=== PATIENT | male | born 1965 | race Two or more races ===

== ENCOUNTER 2016-07-18 13:17 | Inpatient (IN) | payer MEDICAID ==
[~2016-07-18] VITALS: Ht 170.2 cm; Wt 72.1 kg
[2016-07-18 13:31] VITALS: BP 120/83
--- NOTE | 2016-07-18 13:46 | Emergency Room Report ---
History of Present Illness General Chief Complaint: Chest Pain Source: Patient Present Illness HPI Patient has a history of anxiety and HIV. Patient presents emergency department today complaining of four-day intermittent chest pain intermittent nonexertional dull and achy midsternal. Patient denies any fever cough runny nose sore throat. She had outpatient laboratory workup to show that he had elevated CKs was concerned about heart. Symptoms noted to be moderate.No other modifying factors. No other associated signs and symptoms. No other complaints were noted. Allergies: Coded Allergies: NSAIDS (NON-STEROIDAL ANTI-INFLAMMA (Verified Allergy, Unknown, 07/18/16) COPIED FROM UNCODED SECTION Patient History Past Medical History: HIV, other - Anxiety Past Surgical History: none Pertinent Family History: none Social History: Denies: alcohol use, drug use, smoking Nursing Documentation-[facility] Past Medical History: No History, Except For Review of Systems All Other Systems: negative except mentioned in HPI Physical Exam Vital Signs Date Time Temp Pulse Resp B/P Pulse Ox O2 Delivery O2 Flow Rate FiO2 07/18/16 13:28 98.4 80 16 120/83 95 Room Air Sp02 EP Interpretation: reviewed, normal General Appearance: normal inspection, well appearing, no apparent distress, alert Head: atraumatic Eyes: bilateral eye normal inspection ENT: normal ENT inspection, hearing grossly normal, normal voice Neck: normal inspection, full range of motion, supple, no bony tend Respiratory: normal inspection, lungs clear, normal breath sounds, no respiratory distress, no retraction, no wheezing Cardiovascular #1: regular rate, rhythm, no edema Gastrointestinal: normal inspection, normal bowel sounds, non tender, soft, no guarding, no hernia Genitourinary: no CVA tenderness Musculoskeletal: normal inspection, back normal, normal range of motion Neurologic: normal inspection, alert, responsive, speech normal Psychiatric: normal inspection, judgement/insight normal, mood/affect normal Skin: normal inspection, normal color, no rash Medical Decision Making Diagnostic Impression: Primary Impression: Chest pain ER Course Patient presented to the emergency department today complaining of chest pain. Differential diagnoses include acute coronary syndrome, pulmonary embolism, pneumothorax, chest wall pain, pleurisy, pericarditis, acute anxiety reaction just to name a few. Given the severity of the patient's presentation I felt this is a highly complex patient. This patient required extensive workup. CBC , chemistry, EKG, chest x-ray, cardiac enzymes, liver profile were all obtained. 12-lead EKG performed for nontraumatic chest pain. PQRS documentation: EKG was performed. Please refer to below for interpretation. He I will sign this case out to Dr. Griffiths for final disposition. EKG Diagnostic Results Rate: normal Rhythm: NSR ST Segments: no acute changes Rhythm Strip Diag. Results EP Interpretation: yes Rate: 72 Rhythm: NSR, no PVC's, no ectopy Last Vital Signs Date Time Temp Pulse Resp B/P Pulse Ox O2 Delivery O2 Flow Rate FiO2 07/18/16 13:32 80 16 Room Air 07/18/16 13:31 98.4 120/83 95 GABE SALCEDO M.D. Jul 18, 2016 13:46
--- NOTE | 2016-07-18 14:30 | Diagnostic Imaging Report ---
Indication: Chest pain Technique: One view of the chest Comparison: none Findings: Lungs and pleural spaces are clear. Heart size is normal. Impression: No acute process
[2016-07-18 14:37] LABS: BASOPHILS % (AUTO) 1.5 % (0.0-2.0); EOSINOPHILS % (AUTO) 1.4 % (0.0-3.0); LYMPHOCYTES % (AUTO) 45.1 % (20.0-45.0); MEAN CORPUSCULAR HEMOGLOBIN 31.9 PG (27.0-31.0); MEAN CORPUSCULAR HGB CONC 33.9 G/DL (32.0-36.0); MEAN CORPUSCULAR VOLUME 94 FL (80-99); MEAN PLATELET VOLUME 9.3 FL (6.5-10.1); NEUTROPHILS % (AUTO) 41.9 % (45.0-75.0); PLATELET COUNT 222 K/UL (150-450); RED BLOOD COUNT 5.56 M/UL (4.70-6.10); WHITE BLOOD COUNT 4.5 K/UL (4.8-10.8)
[2016-07-18 14:56] LABS: ALANINE AMINOTRANSFERASE 26 U/L (3-41); ALBUMIN/GLOBULIN RATIO 1.7 (1.0-2.7); ANION GAP 15 (5-15); ASPARTATE AMINO TRANSFERASE 37 U/L (5-40); CALCIUM 9.7 mg/dL (8.6-10.2); CARBON DIOXIDE 26 mEQ/L (20-30); CHLORIDE 100 mEQ/L (98-107); CREATININE 1.2 mg/dL (0.7-1.2); GLOMERULAR FILTRATION RATE > 60 mL/min (>60); HEMOLYSIS 7; LIPASE 74 U/L (< 60); POTASSIUM 4.2 mEQ/L (3.4-4.9); SODIUM 141 mEQ/L (135-145); TOTAL PROTEIN 7.7 g/dL (6.6-8.7)
[2016-07-18 15:06] LABS: TROPONIN I < 0.30 ng/mL (<=0.30)
[2016-07-18 15:37] LABS: CKMB 4.4 ng/mL (< 6.7)
[2016-07-18] MEDS ORDERED: VEMLIDY25 MG PO (15:51)
[2016-07-18] MEDS ORDERED: DESCOVY 200-251 EACH PO (15:51)
[2016-07-18] MEDS ORDERED: CLONAZEPAM0.25 MG PO (15:51)
[2016-07-18] MEDS ORDERED: TIVICAY50 MG ORAL (15:51)
[2016-07-18 16:00] VITALS: BP 115/70
--- NOTE | 2016-07-18 16:00 | Emergency Room Report ---
History of Present Illness General Chief Complaint: Chest Pain Source: Patient Present Illness Allergies: Coded Allergies: NSAIDS (NON-STEROIDAL ANTI-INFLAMMA (Verified Allergy, Unknown, 07/18/16) COPIED FROM UNCODED SECTION Nursing Documentation-[facility] Past Medical History: No History, Except For Physical Exam Vital Signs Date Time Temp Pulse Resp B/P Pulse Ox O2 Delivery O2 Flow Rate FiO2 07/18/16 13:28 98.4 80 16 120/83 95 Room Air Medical Decision Making Diagnostic Impression: Primary Impression: ACS (acute coronary syndrome) ER Course Patient is a fairly complex patient with multiple differential to consideration including but not limited to cardiac cardiopulmonary and vascular emergencies Please refer to the initial note, for the full history, exam and initial workup At this time the patient's baseline blood work were appropriate Total CK was mildly elevated Otherwise EKG and chest x-ray appropriate Given the patient's history and he clinical evaluation patient is appropriate for further inpatient evaluation Labs Test 07/18/16 14:15 White Blood Count 4.5 K/UL (4.8-10.8) Red Blood Count 5.56 M/UL (4.70-6.10) Hemoglobin 17.7 G/DL (14.2-18.0) Hematocrit 52.3 % (42.0-52.0) Mean Corpuscular Volume 94 FL (80-99) Mean Corpuscular Hemoglobin 31.9 PG (27.0-31.0) Mean Corpuscular Hemoglobin Concent 33.9 G/DL (32.0-36.0) Red Cell Distribution Width 12.0 % (11.6-14.8) Platelet Count 222 K/UL (150-450) Mean Platelet Volume 9.3 FL (6.5-10.1) Neutrophils (%) (Auto) 41.9 % (45.0-75.0) Lymphocytes (%) (Auto) 45.1 % (20.0-45.0) Monocytes (%) (Auto) 10.0 % (1.0-10.0) Eosinophils (%) (Auto) 1.4 % (0.0-3.0) Basophils (%) (Auto) 1.5 % (0.0-2.0) Sodium Level 141 mEQ/L (135-145) Potassium Level 4.2 mEQ/L (3.4-4.9) Chloride Level 100 mEQ/L (98-107) Carbon Dioxide Level 26 mEQ/L (20-30) Anion Gap 15 (5-15) Blood Urea Nitrogen 12 mg/dL (7-23) Creatinine 1.2 mg/dL (0.7-1.2) Estimat Glomerular Filtration Rate > 60 mL/min (>60) Glucose Level 85 mg/dL (74-106) Calcium Level 9.7 mg/dL (8.6-10.2) Total Bilirubin 0.5 mg/dL (0.0-1.2) Aspartate Amino Transf (AST/SGOT) 37 U/L (5-40) Alanine Aminotransferase (ALT/SGPT) 26 U/L (3-41) Alkaline Phosphatase 115 U/L (40-129) Total Creatine Kinase 538 U/L (38-174) Creatine Kinase MB 4.4 ng/mL (< 6.7) Creatine Kinase MB Relative Index 0.8 Troponin I < 0.30 ng/mL (<=0.30) Pro-B-Type Natriuretic Peptide 12 pg/mL (0-125) Total Protein 7.7 g/dL (6.6-8.7) Albumin 4.9 g/dL (3.5-5.2) Globulin 2.8 g/dL Albumin/Globulin Ratio 1.7 (1.0-2.7) Lipase 74 U/L (< 60) EKG Diagnostic Results Rate: normal Rhythm: NSR ST Segments: no acute changes Rhythm Strip Diag. Results EP Interpretation: yes Rate: 66 Rhythm: NSR, no PVC's, no ectopy Chest X-Ray Diagnostic Results EP Interpretation: Yes Findings: no consolidation, no effusion, no pneumothorax Number of Views: 1 Last Vital Signs Date Time Temp Pulse Resp B/P Pulse Ox O2 Delivery O2 Flow Rate FiO2 07/18/16 13:32 80 16 Room Air 07/18/16 13:31 98.4 120/83 95 Status: improved Disposition: ADMITTED INPATIENT Condition: Serious Referrals: [facility],REFERRING (PCP) XU KIRKPATRICK D.O. Jul 18, 2016 16:00
[2016-07-18 17:29] VITALS: BP 121/71
[2016-07-18] MEDS ORDERED: Miralax 17gm pkt ORAL PRN (18:00)
[2016-07-18] MEDS ORDERED: Diltiazem 25mg/5ml IV PRN (18:00)
[2016-07-18] MEDS ORDERED: Morphine Sulfate 2mg/ml Inj IVP PRN (18:00)
[2016-07-18] MEDS ORDERED: DuoNeb 0.5-3(2.5)mg/3ml neb HHN PRN (18:00)
[2016-07-18] MEDS ORDERED: Nitroglycerin Subl 0.4mg tab (Bottle Of 25) SL PRN (18:00)
[2016-07-18] MEDS ORDERED: Ketorolac 30mg Inj IV PRN (18:00)
[2016-07-18] MEDS ORDERED: Enalaprilat 2.5mg/2ml Inj IV PRN (18:00)
[2016-07-18 18:58] LABS: TROPONIN I < 0.30 ng/mL (<=0.30)
--- NOTE | 2016-07-18 19:36 | Cardiology Progress Note ---
Assessment/Plan Assessment/Plan chest pain hs of same at [facility] neg stress echo 10/2015 hiv hx elevated cpk norml trop suggestive onf non cardiac sourse echo trop ekg posisble home tomorrow [id number] Objective Last 24 Hour Vital Signs Date Time Temp Pulse Resp B/P Pulse Ox O2 Delivery O2 Flow Rate FiO2 07/18/16 17:30 98.4 72 12 115/70 100 Room Air 07/18/16 17:29 98.4 72 14 121/71 98 Room Air 07/18/16 16:00 98.4 60 12 115/70 100 Room Air 07/18/16 13:32 80 16 Room Air 07/18/16 13:31 98.4 16 120/83 95 Room Air 07/18/16 13:28 98.4 80 16 120/83 95 Room Air Laboratory Tests Test 07/18/16 14:15 07/18/16 18:10 White Blood Count 4.5 K/UL (4.8-10.8) L Red Blood Count 5.56 M/UL (4.70-6.10) Hemoglobin 17.7 G/DL (14.2-18.0) Hematocrit 52.3 % (42.0-52.0) H Mean Corpuscular Volume 94 FL (80-99) Mean Corpuscular Hemoglobin 31.9 PG (27.0-31.0) H Mean Corpuscular Hemoglobin Concent 33.9 G/DL (32.0-36.0) Red Cell Distribution Width 12.0 % (11.6-14.8) Platelet Count 222 K/UL (150-450) Mean Platelet Volume 9.3 FL (6.5-10.1) Neutrophils (%) (Auto) 41.9 % (45.0-75.0) L Lymphocytes (%) (Auto) 45.1 % (20.0-45.0) H Monocytes (%) (Auto) 10.0 % (1.0-10.0) Eosinophils (%) (Auto) 1.4 % (0.0-3.0) Basophils (%) (Auto) 1.5 % (0.0-2.0) Sodium Level 141 mEQ/L (135-145) Potassium Level 4.2 mEQ/L (3.4-4.9) Chloride Level 100 mEQ/L (98-107) Carbon Dioxide Level 26 mEQ/L (20-30) Anion Gap 15 (5-15) Blood Urea Nitrogen 12 mg/dL (7-23) Creatinine 1.2 mg/dL (0.7-1.2) Estimat Glomerular Filtration Rate > 60 mL/min (>60) Glucose Level 85 mg/dL (74-106) Calcium Level 9.7 mg/dL (8.6-10.2) Total Bilirubin 0.5 mg/dL (0.0-1.2) Aspartate Amino Transf (AST/SGOT) 37 U/L (5-40) Alanine Aminotransferase (ALT/SGPT) 26 U/L (3-41) Alkaline Phosphatase 115 U/L (40-129) Total Creatine Kinase 538 U/L (38-174) H Creatine Kinase MB 4.4 ng/mL (< 6.7) Creatine Kinase MB Relative Index 0.8 Troponin I < 0.30 ng/mL (<=0.30) < 0.30 ng/mL (<=0.30) Pro-B-Type Natriuretic Peptide 12 pg/mL (0-125) Total Protein 7.7 g/dL (6.6-8.7) Albumin 4.9 g/dL (3.5-5.2) Globulin 2.8 g/dL Albumin/Globulin Ratio 1.7 (1.0-2.7) Lipase 74 U/L (< 60) H LILIBETH MAY Jul 18, 2016 19:36
[2016-07-18 20:20] VITALS: BP 130/78
[2016-07-18] MEDS ORDERED: clonazePAM 0.5mg tab ORAL PRN (20:30)
[2016-07-18] MEDS: Heparin 5000 units/ml inj SUBQ SCH (21:00)
--- NOTE | 2016-07-18 23:58 | Consultation ---
DATE OF CONSULTATION: 07/18/2016 CARDIOLOGY CONSULTATION CONSULTING PHYSICIAN: Dharmesh Figueroa M.D. REFERRING PHYSICIAN: Donavan Perez M.D. REASON FOR REFERRAL: Chest pain. HISTORY OF PRESENT ILLNESS: This is a 51-year-old gentleman with a history of HIV, who presented to the hospital because of three to four days of pain in the chest, sometimes sternal, sometimes left sided, sometimes bilateral shoulder area, sometimes across the chest, has been constantly present for the past four days. No relieving or exacerbating factors are noted, however, the patient does note that at times has worsening of his symptoms in certain positions. There is no PND. There is no orthopnea. He has occasional shortness of breath, occasional dizziness on standing position with palpitations. He has different types of chest pains, some of which he describes as a shocking sensation across both sides of the chest that is intense. PAST MEDICAL HISTORY: Positive for history of chest pain previously, for which he received evaluation at [facility]. He has a history of human immunodeficiency virus. No history of tuberculosis, asthma, or emphysema. No high blood pressure. No diabetes. He does have a history of renal insufficiency. He does have a history of palpitations, anxiety, and atypical chest pain, with chest pains as mentioned with previous hospitalizations at [facility]. In October 2015, he underwent a stress echocardiogram at [facility], which was negative. He endorses allergies to non-steroidals because of kidney problems. SOCIAL HISTORY: He used to smoke, but does not anymore. No alcohol. No drugs. REVIEW OF SYSTEMS: Gastrointestinal: Some nausea. Genitourinary: Negative. Pulmonary: Coughing and wheezing. Constitutional: Negative. PHYSICAL EXAMINATION: GENERAL: Shows a young gentleman, in no apparent respiratory distress. NECK: Supple. No jugular venous distention. No abdominojugular reflux noted. CHEST WALL: Nontender to palpation. LUNGS: Clear to auscultation and percussion. CARDIAC: S1 is normal. S2 is normal. Regular rate and rhythm. No heaves, thrills, gallops, or rubs noted. ABDOMEN: Soft and nontender. Positive bowel sounds. EXTREMITIES: There is no clubbing, cyanosis, nor is there any edema. LABORATORY AND DIAGNOSTIC DATA: Laboratory Values: Two sets of cardiac enzymes are negative from last night, one pending for today. The total CK was elevated at 538, as it has apparently been previously as well but no abnormality of troponin. Sodium is 141, potassium 4.2, chloride 100, bicarbonate 26, BUN 12, creatinine 1.2, and glucose of 85. His white count of 4.5, hemoglobin 17.7, and platelet count of 222,000. He did have a x-ray of the chest that was performed and showed no acute disease processes. ASSESSMENT: 1. Atypical chest pain with history of the same. 2. Human immunodeficiency virus. 3. History of renal insufficiency, resolved, secondary to nonsteroidals. 4. History of rhabdomyolysis. 5. Elevated CPK. Dr. Perez, this patient was seen in cardiac consultation. The patient's cardiac enzymes are all negative at least on two separate occasions and the third will be checked in the morning. His electrocardiogram performed is fairly unremarkable. I will recommend that he undergo an echocardiogram for evaluation of the segmental wall motion abnormalities. His CK is elevated, but is probably noncardiac source, possibly even related to his HIV or medications otherwise. No relieving or exacerbating factors are noted by the patient except for positional changes that may make the pain musculoskeletal as a possible likely etiology. He has had several tests at [facility] last year and review of the [facility] records indicate in October he had a negative stress echo at that time. His electrocardiogram is unchanged. Unless his EKG changes by tomorrow morning and cardiac enzymes change, may not perform any further testing. Dharmesh Figueroa M.D. DR: HUGO JOB#: [id number] CC:
[2016-07-19 00:13] VITALS: BP 117/76
[2016-07-19 03:48] VITALS: BP 127/88
[2016-07-19 03:48] LABS: BASOPHILS % (AUTO) 0.8 % (0.0-2.0); EOSINOPHILS % (AUTO) 1.9 % (0.0-3.0); LYMPHOCYTES % (AUTO) 51.3 % (20.0-45.0); MEAN CORPUSCULAR HEMOGLOBIN 32.4 PG (27.0-31.0); MEAN CORPUSCULAR VOLUME 95 FL (80-99); MONOCYTES % (AUTO) 9.5 % (1.0-10.0); NEUTROPHILS % (AUTO) 36.4 % (45.0-75.0); PLATELET COUNT 219 K/UL (150-450); RED BLOOD COUNT 5.56 M/UL (4.70-6.10); RED CELL DISTRIBUTION WIDTH 11.8 % (11.6-14.8); WHITE BLOOD COUNT 7.2 K/UL (4.8-10.8)
[2016-07-19 03:59] LABS: PROTHROMBIN TIME 10.6 SEC (9.30-11.50)
[2016-07-19 05:02] LABS: TROPONIN I < 0.30 ng/mL (<=0.30)
[2016-07-19 05:37] LABS: CHOLESTEROL 212 mg/dL (< 200); CHOLESTEROL/HDL RATIO 5.9 (3.3-4.4); CRP QUANT < 0.3 mg/dL (< 0.5); HEMOLYSIS 27; LDL CHOLESTEROL (CALC.) 127 mg/dL (60-99)
[2016-07-19 08:36] VITALS: BP 114/68
[2016-07-19] MEDS ORDERED: Aspirin Baby 81mg ORAL SCH (09:00)
[2016-07-19] MEDS ORDERED: DESCOVY ORAL SCH ×3 (09:00→12:00)
[2016-07-19] MEDS ORDERED: Dolutegravir Sodium 50mg tab ORAL SCH (09:00)
[2016-07-19] MEDS: Heparin 5000 units/ml inj SUBQ SCH (09:00)
[2016-07-19] MEDS ORDERED: TIVICAY 50 MG ORAL SCH ×3 (09:00→12:00)
--- NOTE | 2016-07-19 10:40 | Cardiology Progress Note ---
Assessment/Plan Assessment/Plan chest pain [facility] neg stress echo 10/2015 and neg to day 07/19/2016 hiv hx elevated cpk norml trop suggestive onf non cardiac sourse trop neg ekg neg stress echo neg today dc home Subjective Cardiovascular: Denies: chest pain Respiratory: Denies: shortness of breath Gastrointestinal/Abdominal: Denies: abdominal pain Genitourinary: Denies: burning Objective Last 24 Hour Vital Signs Date Time Temp Pulse Resp B/P Pulse Ox O2 Delivery O2 Flow Rate FiO2 07/19/16 08:36 97.7 56 18 114/68 98 Room Air 07/19/16 08:34 65 18 Room Air 21 07/19/16 04:00 61 07/19/16 03:48 97.2 60 20 127/88 96 Room Air 07/19/16 00:13 98.4 53 21 117/76 94 Room Air 07/19/16 00:00 49 07/18/16 20:20 98.6 56 20 130/78 95 Room Air 07/18/16 20:00 59 07/18/16 17:30 98.4 72 12 115/70 100 Room Air 07/18/16 17:29 98.4 72 14 121/71 98 Room Air 07/18/16 16:00 98.4 60 12 115/70 100 Room Air 07/18/16 13:32 80 16 Room Air 07/18/16 13:31 98.4 16 120/83 95 Room Air 07/18/16 13:28 98.4 80 16 120/83 95 Room Air General Appearance: no apparent distress, alert Neck: supple Cardiovascular: normal rate, regular rhythm Respiratory/Chest: lungs clear, normal breath sounds Abdomen: normal bowel sounds, non tender, soft Extremities: no swelling Intake and Output 07/18/16 07/19/16 19:00 07:00 Intake Total 0 ml Balance 0 ml Other 0 ml # Voids 2 Laboratory Tests Test 07/18/16 14:15 07/18/16 18:10 07/19/16 03:28 White Blood Count 4.5 K/UL (4.8-10.8) L 7.2 K/UL (4.8-10.8) # Red Blood Count 5.56 M/UL (4.70-6.10) 5.56 M/UL (4.70-6.10) Hemoglobin 17.7 G/DL (14.2-18.0) 18.0 G/DL (14.2-18.0) Hematocrit 52.3 % (42.0-52.0) H 53.1 % (42.0-52.0) H Mean Corpuscular Volume 94 FL (80-99) 95 FL (80-99) Mean Corpuscular Hemoglobin 31.9 PG (27.0-31.0) H 32.4 PG (27.0-31.0) H Mean Corpuscular Hemoglobin Concent 33.9 G/DL (32.0-36.0) 34.0 G/DL (32.0-36.0) Red Cell Distribution Width 12.0 % (11.6-14.8) 11.8 % (11.6-14.8) Platelet Count 222 K/UL (150-450) 219 K/UL (150-450) Mean Platelet Volume 9.3 FL (6.5-10.1) 9.0 FL (6.5-10.1) Neutrophils (%) (Auto) 41.9 % (45.0-75.0) L 36.4 % (45.0-75.0) L Lymphocytes (%) (Auto) 45.1 % (20.0-45.0) H 51.3 % (20.0-45.0) H Monocytes (%) (Auto) 10.0 % (1.0-10.0) 9.5 % (1.0-10.0) Eosinophils (%) (Auto) 1.4 % (0.0-3.0) 1.9 % (0.0-3.0) Basophils (%) (Auto) 1.5 % (0.0-2.0) 0.8 % (0.0-2.0) Sodium Level 141 mEQ/L (135-145) Potassium Level 4.2 mEQ/L (3.4-4.9) Chloride Level 100 mEQ/L (98-107) Carbon Dioxide Level 26 mEQ/L (20-30) Anion Gap 15 (5-15) Blood Urea Nitrogen 12 mg/dL (7-23) Creatinine 1.2 mg/dL (0.7-1.2) Estimat Glomerular Filtration Rate > 60 mL/min (>60) Glucose Level 85 mg/dL (74-106) Calcium Level 9.7 mg/dL (8.6-10.2) Total Bilirubin 0.5 mg/dL (0.0-1.2) Aspartate Amino Transf (AST/SGOT) 37 U/L (5-40) Alanine Aminotransferase (ALT/SGPT) 26 U/L (3-41) Alkaline Phosphatase 115 U/L (40-129) Total Creatine Kinase 538 U/L (38-174) H Creatine Kinase MB 4.4 ng/mL (< 6.7) Creatine Kinase MB Relative Index 0.8 Troponin I < 0.30 ng/mL (<=0.30) < 0.30 ng/mL (<=0.30) < 0.30 ng/mL (<=0.30) Pro-B-Type Natriuretic Peptide 12 pg/mL (0-125) Total Protein 7.7 g/dL (6.6-8.7) Albumin 4.9 g/dL (3.5-5.2) Globulin 2.8 g/dL Albumin/Globulin Ratio 1.7 (1.0-2.7) Lipase 74 U/L (< 60) H Prothrombin Time 10.6 SEC (9.30-11.50) Prothromb Time International Ratio 1.0 (0.9-1.1) Activated Partial Thromboplast Time 29 SEC (23-33) C-Reactive Protein, Quantitative < 0.3 mg/dL (< 0.5) Triglycerides Level 245 mg/dL (< 150) H Cholesterol Level 212 mg/dL (< 200) H LDL Cholesterol 127 mg/dL (60-99) H HDL Cholesterol 36 mg/dL (> 60) Cholesterol/HDL Ratio 5.9 (3.3-4.4) H Thyroid Stimulating Hormone (TSH) 4.950 uIU/mL (0.300-4.500) LILIEBTH MAY Jul 19, 2016 10:40
[2016-07-19 12:38] VITALS: BP 118/70
--- NOTE | 2016-07-19 15:16 | History and Physical ---
History of Present Illness General Date patient seen: Jul 19, 2016 Reason for Hospitalization: Chest Pain Present Illness HPI 51 year old male with a history of anxiety and HIV presented to emergency departmen complaining of four-day intermittent chest pain, dull and achy midsternal. He had outpatient laboratory workup to show that he had elevated CKs. Pt is admitted to telemetry to rule ACS. Allergies: Coded Allergies: KETOROLAC (Verified Allergy, Severe, 07/18/16) NSAIDS (NON-STEROIDAL ANTI-INFLAMMA (Verified Allergy, Unknown, 07/18/16) COPIED FROM UNCODED SECTION Medication History Scheduled Dolutegravir Sodium (Tivicay), 50 MG ORAL DAILY, (Reported) Miscellaneous Medications Clonazepam (Clonazepam), 0.25 MG PO, (Reported) Emtricitabine/Tenofov Alafenam (Descovy 200-25 mg Tablet), 1 EACH PO, (Reported) Tenofovir Alafenamide Fumarate (Vemlidy), 25 MG PO, (Reported) Patient History Healthcare decision maker Resuscitation status Full Code Advanced Directive on File Past Medical/Surgical History Past Medical/Surgical History: (1) HIV disease (2) Anxiety Review of Systems All Other Systems: negative except mentioned in HPI Physical Exam General Appearance: WD/WN Lines, tubes and drains: peripheral HEENT: normocephalic, atraumatic Neck: non-tender, normal alignment Respiratory/Chest: chest wall non-tender, lungs clear Cardiovascular/Chest: normal peripheral pulses, normal rate Abdomen: normal bowel sounds, non tender Genitourinary/Rectal: normal genital exam Extremities: normal range of motion, non-tender Skin Exam: normal pigmentation Neurologic: quoter II-XII grossly normal Last 24 Hour Vital Signs Date Time Temp Pulse Resp B/P Pulse Ox O2 Delivery O2 Flow Rate FiO2 07/19/16 12:38 97.9 70 18 118/70 100 Room Air 07/19/16 12:00 71 07/19/16 08:36 97.7 56 18 114/68 98 Room Air 07/19/16 08:34 65 18 Room Air 21 07/19/16 08:00 57 07/19/16 04:00 61 07/19/16 03:48 97.2 60 20 127/88 96 Room Air 07/19/16 00:13 98.4 53 21 117/76 94 Room Air 07/19/16 00:00 49 07/18/16 20:20 98.6 56 20 130/78 95 Room Air 07/18/16 20:00 59 07/18/16 17:30 98.4 72 12 115/70 100 Room Air 07/18/16 17:29 98.4 72 14 121/71 98 Room Air 07/18/16 16:00 98.4 60 12 115/70 100 Room Air Intake and Output 07/18/16 07/19/16 19:00 07:00 Intake Total 0 ml Balance 0 ml Other 0 ml # Voids 2 Laboratory Tests Test 07/18/16 18:10 07/19/16 03:28 Troponin I < 0.30 ng/mL (<=0.30) < 0.30 ng/mL (<=0.30) White Blood Count 7.2 K/UL (4.8-10.8) # Red Blood Count 5.56 M/UL (4.70-6.10) Hemoglobin 18.0 G/DL (14.2-18.0) Hematocrit 53.1 % (42.0-52.0) H Mean Corpuscular Volume 95 FL (80-99) Mean Corpuscular Hemoglobin 32.4 PG (27.0-31.0) H Mean Corpuscular Hemoglobin Concent 34.0 G/DL (32.0-36.0) Red Cell Distribution Width 11.8 % (11.6-14.8) Platelet Count 219 K/UL (150-450) Mean Platelet Volume 9.0 FL (6.5-10.1) Neutrophils (%) (Auto) 36.4 % (45.0-75.0) L Lymphocytes (%) (Auto) 51.3 % (20.0-45.0) H Monocytes (%) (Auto) 9.5 % (1.0-10.0) Eosinophils (%) (Auto) 1.9 % (0.0-3.0) Basophils (%) (Auto) 0.8 % (0.0-2.0) Prothrombin Time 10.6 SEC (9.30-11.50) Prothromb Time International Ratio 1.0 (0.9-1.1) Activated Partial Thromboplast Time 29 SEC (23-33) C-Reactive Protein, Quantitative < 0.3 mg/dL (< 0.5) Triglycerides Level 245 mg/dL (< 150) H Cholesterol Level 212 mg/dL (< 200) H LDL Cholesterol 127 mg/dL (60-99) H HDL Cholesterol 36 mg/dL (> 60) Cholesterol/HDL Ratio 5.9 (3.3-4.4) H Thyroid Stimulating Hormone (TSH) 4.950 uIU/mL (0.300-4.500) Height (Feet): 5 Height (Inches): 7.00 Weight (Pounds): 159 Medications Current Medications Medications (Trade) Dose Ordered Sig/Mandeep Route PRN Reason Start Time Stop Time Status Last Admin Dose Admin Acetaminophen (Tylenol) 650 mg Q4H PRN ORAL FEVER 07/18/16 18:00 08/17/16 17:59 Albuterol/ Ipratropium (DuoNeb 0.5-3(2.5)mg/3ml) 3 ml Q4H PRN HHN Shortness of Breath 07/18/16 18:00 07/23/16 17:59 Aspirin (ASA) 162 mg DAILY ORAL 07/19/16 09:00 08/18/16 08:59 Clonazepam (KlonoPIN) 0.25 mg Q6H PRN ORAL For Anxiety 07/18/16 20:30 07/25/16 20:29 Diltiazem HCl (Cardizem) 10 mg Q1H PRN IV HR > 120 07/18/16 18:00 08/17/16 17:59 Enalaprilat (Vasotec) 2.5 mg Q6H PRN IV sbp more than 160 07/18/16 18:00 08/17/16 17:59 Heparin Sodium (Porcine) (Heparin 5000 units/ml) 5,000 units EVERY 12 HOURS SUBQ 07/18/16 21:00 08/17/16 20:59 Morphine Sulfate (Morphine Sulfate) 2 mg Q4H PRN IVP severe Pain (Pain Scale 7-10) 07/18/16 18:00 07/25/16 17:59 Nitroglycerin (Ntg) 0.4 mg Q5MIN X 3 DOSES PRN SL Prn Chest Pain 07/18/16 18:00 08/17/16 17:59 Ondansetron HCl (Zofran) 4 mg Q6H PRN IVP Nausea & Vomiting 07/18/16 18:00 08/17/16 17:59 Pantoprazole (Protonix) 40 mg DAILY ORAL 07/19/16 09:00 08/18/16 08:59 Patient Own Medication (Patient's Own Med) 1 ea DAILY ORAL 07/19/16 12:00 08/18/16 11:59 Patient Own Medication (Patient's Own Med) 1 ea DAILY ORAL 07/19/16 12:00 08/18/16 11:59 Polyethylene Glycol (Miralax) 17 gm DAILYPRN PRN ORAL Constipation 07/18/16 18:00 08/17/16 17:59 Temazepam (Restoril) 15 mg HSPRN PRN ORAL Insomnia 07/18/16 18:00 07/25/16 17:59 Assessment/Plan Problem List: (1) Costochondritis ICD Codes: M94.0 - Chondrocostal junction syndrome [Tietze] SNOMED: 66546696 (2) ACS (acute coronary syndrome) ICD Codes: I24.9 - Acute ischemic heart disease, unspecified SNOMED: 018348036 (3) Anxiety ICD Codes: F41.9 - Anxiety disorder, unspecified SNOMED: 57937873 (4) HIV disease ICD Codes: B20 - Human immunodeficiency virus [HIV] disease SNOMED: 15412532 Assessment/Plan serial ekg, troponin, echo cardiology evaluation TING TARANGO Jul 19, 2016 15:16
--- NOTE | 2016-07-19 20:16 | Cardiology Report ---
APPROVED REPORT EXAM: Two-dimensional and M-mode echocardiogram with Doppler and color Doppler. INDICATION LV function M-Mode DIMENSIONS IVSd1.1 (0.7-1.1cm)Left Atrium (MM)4.2 (1.6-4.0cm) LVDd4.5 (3.5-5.6cm)Aortic Root3.4 (2.0-3.7cm) PWd1.2 (0.7-1.1cm)Aortic Cusp Exc.1.9 (1.5-2.0cm) LVDs2.4 (2.5-4.0cm) PWs2.1 cm Normal left ventricular chamber size, systolic function and wall motion. Left ventricular ejection fraction estimated to be 60-65 %. No evidence of left ventricular hypertrophy. Anterior Echo-free space, may be due to pericardial fat or effusion. All other cardiac chamber sizes are within normal limits. Mild focal aortic valve sclerosis with adequate cusp excursion. Mildly thickened mitral valve leaflets with normal excursion. Mild mitral annulus and aortic root calcification. Pulmonic valve not well visualized. Normal tricuspid valve structure. IVC at normal size with physiologic collapse. A color flow and spectral Doppler study was performed and revealed: Trace mitral regurgitation. Mitral diastolic velocities suggest reduced left ventricular relaxation c/w mild LV diastolic dysfunction (Grade I ). Trace to mild regurgitation. Tricuspid systolic velocities suggests peak right ventricular systolic pressure of 31 mmHg. Mild pulmonic regurgitation present.
--- NOTE | 2016-07-20 18:38 | Discharge Summary ---
Discharge Summary Hospital Course Date of Admission Jul 18, 2016 at 16:08 Date of Discharge Jul 19, 2016 at 16:00 Admitting Diagnosis ACS HPI Celestino Graves is a 51 year old male who was admitted on Jul 18, 2016 at 16: 08 for Acute Coronary Syndrome Hospital Course [id number] Discharge Discharge Disposition Patient was discharged to Home (01) Discharge Diagnoses: Gerri Ibarra NP Jul 20, 2016 18:38
--- NOTE | 2016-07-21 04:08 | Discharge Summary 2 SIG ---
DATE OF ADMISSION: 07/18/2016 DATE OF DISCHARGE: 07/19/2016 CHIEF OPERATOR SYNTHESIS: Dharmesh Figueroa M.D. BRIEF HOSPITAL COURSE: The patient is a 51-year-old male with history of anxiety and HIV, presented to emergency department complaining of four day intermittent chest pain, was described to be dull and aching and was located midsternal. He had an outpatient laboratory workup that showed elevated CK. He presented to ED. EKG showed no acute changes. Chest x-ray showed no consolidation, no effusion, and no pneumothorax. He was admitted for cardiac evaluation and was seen by Dr. Figueroa. The total CK was elevated at 538. Troponins were negative. Echocardiogram done showed EF 60% to 65%. He underwent a stress echocardiogram, results were negative. Pain was exacerbated by positional changes making it possible musculoskeletal as possible likely etiology. He has had several tests at [facility] with a negative stress echo done in October 2015. He was then discharged home. Advised to follow up with PMD. FINAL DIAGNOSES: 1. Chest pain, possible musculoskeletal in origin. 2. Human immunodeficiency virus. 3. Costochondritis. 4. Anxiety . Donavan Perez M.D. I have been assigned to dictate discharge summary on this account and I was not involved in the patient's management. Gerri Ibarra N.P. DR: Juanito JOB#: [id number] CC:
== END 2016-07-19 16:00 | disposition home or self-care (01) | DRG 203 ==
LOC: EMR 14:17 → 2E 16:08 → EDBEDREQ 16:32
DX: M94.0 Chondrocostal junction syndrome [Tietze] (principal); B20 Human immunodeficiency virus [HIV] disease; R07.89 Other chest pain; F41.9 Anxiety disorder, unspecified; Z87.891 Personal history of nicotine dependence; Z88.6 Allergy status to analgesic agent; Z88.8 Allergy status to other drugs, medicaments and biological substances
CPT/HCPCS: 36415; 71010; 80053; 80061; 82550; 82553; 83690; 83880; 84443; 84484; 85025; 85610; 85730; 86140; 93005; 93017; 93306; 93350; 94664

== ENCOUNTER 2017-01-08 19:56 | Emergency (ER) | payer MEDICAID ==
[~2017-01-08] VITALS: Ht 170.2 cm; Wt 71.7 kg
[~2017-01-08 19:56] MED LIST: CLONAZEPAM0.25 MG PO; DESCOVY 200-251 EACH PO; TIVICAY50 MG ORAL; VEMLIDY25 MG PO
[2017-01-08] MEDS ORDERED: ISENTRESS400 MG ORAL (20:35)
[2017-01-08 20:45] VITALS: BP 132/93
[2017-01-08] MEDS ORDERED: PEPCID40 MG PO (20:56)
--- NOTE | 2017-01-08 20:57 | Emergency Room Report ---
History of Present Illness General Chief Complaint: Headache Source: Patient Present Illness HPI 51YOM walk in with headache, "acid in stomach" and "burping" and bilateral hands /feet numbness and anxiety after taking 1/4 of a 100mg viagra pill. Symptoms occurred about 30 minutes after. Hasnt taken in a while. Also had a pastrami sandwich from the store a few hours ago. Added lee/ mustard but not sure of the date on the package. HIV+ on HAART No previous abd/pelvic surgery Denies fever/chills, urinary complaints, nausea/vomiting/diarrhea Tolerating PO - drinking water - in ED Allergies: Coded Allergies: KETOROLAC (Verified Allergy, Severe, 07/18/16) EFAVIRENZ (Verified Allergy, Unknown, 01/08/17) NELFINAVIR (Verified Allergy, Unknown, 01/08/17) NSAIDS (NON-STEROIDAL ANTI-INFLAMMA (Verified Allergy, Unknown, 07/18/16) COPIED FROM UNCODED SECTION Patient History Past Medical History: HIV Past Surgical History: none Pertinent Family History: none Social History: Denies: smoking, alcohol use, drug use Immunizations: UTD Reviewed Nursing Documentation: PMH: Agreed, PSxH: Agreed Nursing Documentation-PMH Past Medical History: No History, Except For Hx Cardiac Problems: No Hx Asthma: Yes 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 Hx Gastrointestinal Problems: Yes - Indigestion Hx Neurological Problems: No - Rabdo Review of Systems All Other Systems: negative except mentioned in HPI Physical Exam Vital Signs Date Time Temp Pulse Resp B/P (MAP) Pulse Ox O2 Delivery O2 Flow Rate FiO2 01/08/17 20:25 98.6 91 15 132/93 100 Room Air Sp02 EP Interpretation: reviewed, normal General Appearance: normal inspection, well appearing, no apparent distress, alert, GCS 15, non-toxic Head: normocephalic, atraumatic Eyes: bilateral eye PERRL, bilateral eye EOMI ENT: normal ENT inspection, hearing grossly normal, normal voice Neck: normal inspection, full range of motion, supple, no bony tend Respiratory: normal inspection, lungs clear, normal breath sounds, no respiratory distress, no retraction, no wheezing Cardiovascular #1: regular rate, rhythm, no edema Gastrointestinal: normal inspection, normal bowel sounds, non tender, soft, no guarding, no hernia Genitourinary: no CVA tenderness Musculoskeletal: normal inspection, back normal, normal range of motion, John' s Sign negative Neurologic: normal inspection, alert, oriented x3, responsive, candlemaking laborer III-XII nml as tested, motor strength/tone normal, speech normal Psychiatric: normal inspection, judgement/insight normal, mood/affect normal Skin: normal inspection, normal color, no rash Medical Decision Making Diagnostic Impression: Primary Impression: Gastritis Qualified Codes: K29.00 - Acute gastritis without bleeding Additional Impression: Medication side effects Qualified Codes: T88.7XXA - Unspecified adverse effect of drug or medicament, initial encounter ER Course 51YOM with constellation of symptoms that could be related to side effect of viagra plus gastritis from food poisoning VSS. Afebrile Non focal abdomen ECG is NSR. No ischemia Reassured patient Advised not using viagra again in the future until d/w doctor Rx pepcid DC home Low suspicion for acute bacterial/surgical process requiring additional lab work , imaging, admission and/or surgical evaluation at this time given well appearing, non-focal abd on serial exam, stable vital signs, and tolerating PO. In shared decision making process with patient, understands to return to ER for worsening symptoms and to followup with PMD in reasonable amount of time, 2-3 days. EKG Diagnostic Results Rate: normal Rhythm: NSR ST Segments: no acute changes ASA given to the pt in ED: No Rhythm Strip Diag. Results EP Interpretation: yes Rate: 86 Rhythm: NSR, no PVC's Last Vital Signs Date Time Temp Pulse Resp B/P (MAP) Pulse Ox O2 Delivery O2 Flow Rate FiO2 01/08/17 20:25 98.6 91 15 132/93 100 Room Air Status: improved Disposition: HOME, SELF-CARE Condition: Improved Scripts Famotidine (PEPCID) 40 Mg Tablet 40 MG PO DAILY for 7 Days, #7 TAB 0 Refills Prov: CHING SPARKS M.D. 01/08/17 Patient Instructions: Gastritis, Adult, [id number] Additional Instructions: - Do NOT take Sildenafil again until you discuss with your doctor the side effects you experienced today - Take pepcid 40mg each morning for 1 week or until you feel better - Drink water/deja eugenio ONLY today - Start bland food tomorrow, crackers, chicken broth ONLY until you feel completel better - Follow up with your PRIMARY DOCTOR in 2-3 days as needed - Return to ER for severe abdominal pain located on ONE side of your abdomen, fever/chills, vomiting that do NOT resolve with medication CHING SPARKS M.D. Jan 08, 2017 20:57
[2017-01-08 21:00] VITALS: BP 132/93
[2017-01-08] MEDS ORDERED: Mylanta II UD 30ml ORAL ONE (21:00)
--- NOTE | 2017-01-17 08:23 | Cardiology Report ---
APPROVED REPORT EKG Measurement Heart [id number] [id number] Normal sinus rhythm Possible Left atrial enlargement Borderline ECG
[2017-03-24] MEDS ORDERED: ADULT WAL-100 MG/5 M ORAL (10:45)
[2017-03-24] MEDS ORDERED: PREDNISONE20 MG ORAL (11:23)
== END 2017-01-08 21:00 | disposition home or self-care (01) ==
LOC: EMR 20:35
DX: K29.70 Gastritis, unspecified, without bleeding (principal); T46.7X5A Adverse effect of peripheral vasodilators, initial encounter; Y92.89 Other specified places as the place of occurrence of the external cause; B20 Human immunodeficiency virus [HIV] disease; C46.9 Kaposi's sarcoma, unspecified; J45.909 Unspecified asthma, uncomplicated; Z88.6 Allergy status to analgesic agent; Z88.8 Allergy status to other drugs, medicaments and biological substances; Z79.899 Other long term (current) drug therapy
CPT/HCPCS: 93005; 99284

== ENCOUNTER → 2017-03-24 | Emergency (ER) | payer MEDICAID ==
[~2017-03-24] VITALS: Ht 167.6 cm; Wt 72.6 kg
[~2017-03-24] MED LIST changes: +ADULT WAL-100 MG/5 M ORAL; +AMOXICILLIN500 MG ORAL; +ISENTRESS400 MG ORAL; +PEPCID40 MG PO; +PREDNISONE20 MG ORAL; +PROMETHAZINE-C118 M1 ORAL
--- NOTE | 2017-03-24 11:29 | Diagnostic Imaging Report ---
Indication: Dyspnea Comparison: 07/18/2016 A single view chest radiograph was obtained. Findings: Accounting for differences in technique, there is no significant change appreciated. The interstitium of the lungs appears more prominent on the current study which I believe is a function of technique rather than interstitial disease. The lungs are clear. There is bronchial wall thickening present which may be indicative of chronic bronchitis, finding that was noted previously as well. Heart size is normal. No consolidation identified. Diaphragm is clear. Bones are unremarkable. IMPRESSION: Chronic bronchitis
[2017-03-24 11:30] VITALS: BP 154/92
--- NOTE | 2017-03-30 19:54 | Emergency Room Report ---
History of Present Illness General Chief Complaint: Flu Like Symptoms Present Illness HPI Patient is a 51-year-old male who presented after increased cough. The patient reportedly had recently exposed to pneumonia. He denied any fever. He reported having a productive cough. the patient any leg pain or swelling. Patient prior history of HIV. Cough is worse with supine position. He reported mild sore throat. Patient reports having undetectable viral load and adequate CD4 count Allergies: Coded Allergies: KETOROLAC (Verified Allergy, Severe, 07/18/16) EFAVIRENZ (Verified Allergy, Unknown, 01/08/17) NELFINAVIR (Verified Allergy, Unknown, 01/08/17) NSAIDS (NON-STEROIDAL ANTI-INFLAMMA (Verified Allergy, Unknown, 07/18/16) COPIED FROM UNCODED SECTION Patient History Past Medical History: see triage record Reviewed Nursing Documentation: PMH: Agreed, PSxH: Agreed Nursing Documentation-PMH Hx Cardiac Problems: No Hx Asthma: Yes Hx Cancer: Yes - Karposis sarcoma [id number] Hx Gastrointestinal Problems: Yes - Indigestion Hx Neurological Problems: No - Rabdo Review of Systems All Other Systems: negative except mentioned in HPI Physical Exam Vital Signs Date Time Temp Pulse Resp B/P (MAP) Pulse Ox O2 Delivery O2 Flow Rate FiO2 03/24/17 09:59 98.6 89 20 132/85 97 Room Air Sp02 EP Interpretation: reviewed, normal General Appearance: normal inspection, well appearing, no apparent distress, alert, GCS 15 Head: atraumatic ENT: normal ENT inspection, hearing grossly normal, normal voice, pharyngeal erythema - minimal Neck: normal inspection, full range of motion, supple, no bony tend Respiratory: normal inspection, lungs clear, normal breath sounds, no respiratory distress, no retraction, no wheezing Cardiovascular #1: regular rate, rhythm, no edema Gastrointestinal: normal inspection, normal bowel sounds, non tender, soft, no guarding, no hernia Genitourinary: no CVA tenderness Musculoskeletal: normal inspection, back normal, normal range of motion Neurologic: normal inspection, alert, oriented x3, responsive, log cooker III-XII nml as tested, motor strength/tone normal, speech normal Psychiatric: normal inspection, judgement/insight normal, mood/affect normal Skin: normal inspection, normal color, no rash Medical Decision Making Diagnostic Impression: Primary Impression: Viral respiratory infection ER Course This presented for cough. Differential diagnosis included but was not limited to bronchitis, pneumonia, pulmonary embolism, pericarditis, asthma, foreign body. A chest x-ray one view read by radiology showed no evidence of pneumonia. Patient was given prescription for anti-inflammatory medications as well as cough medications. The patient does not appear to require Tamiflu at this time. The patient is advised to follow up with primary care doctor in 1- 2 days. Patient is advised to return if any worsening condition or if any changes in status that are concerning. This report is dictated with [employer] career professional software which may occasionally lead to discrepancies related to use of this software. Last Vital Signs Date Time Temp Pulse Resp B/P (MAP) Pulse Ox O2 Delivery O2 Flow Rate FiO2 03/24/17 11:30 99.0 88 16 154/92 98 Room Air Status: improved Disposition: HOME, SELF-CARE Condition: Stable Scripts Prednisone* (PREDNISONE*) 20 Mg Tablet 40 MG ORAL DAILY, #10 TAB Prov: Russell Taveras 03/24/17 Guaifenesin* (ADULT WAL-TUSSIN*) 100 Mg/5 Ml Liquid 10 ML ORAL Q4H, #200 ML Prov: Russell Taveras 03/24/17 Referrals: [facility]ERR[facility] (PCP) Patient Instructions: Viral Respiratory Infection Russell Taveras Mar 30, 2017 19:54
== END | disposition home or self-care (01) ==
LOC: EMR 10:35
DX: J06.9 Acute upper respiratory infection, unspecified (principal); B34.9 Viral infection, unspecified; J44.9 Chronic obstructive pulmonary disease, unspecified; Z88.8 Allergy status to other drugs, medicaments and biological substances
CPT/HCPCS: 71010; 99283

== ENCOUNTER 2017-06-19 11:09 | Emergency (ER) | payer MEDICAID ==
[~2017-06-19] VITALS: Ht 172.7 cm; Wt 72.6 kg
[~2017-06-19 11:09] MED LIST changes: -AMOXICILLIN500 MG ORAL; -PROMETHAZINE-C118 M1 ORAL
[2017-06-19 11:21] VITALS: BP 136/85
--- NOTE | 2017-06-19 11:56 | Emergency Room Report ---
History of Present Illness General Chief Complaint: Upper Respiratory Illness Source: Patient Present Illness HPI 52-year-old male presents ED complaining of cough and congestion. Started 4 days ago. Cough is productive with yellowish sputum. Denies fever. States he has sinus congestion as well. Notes history of HIV but states that he is compliant with his medications. Viral load is undetectable. Denies fevers or chills. Denies chest pain shortness of breath. No other aggravating relieving factors. Denies any other associated symptoms Allergies: Coded Allergies: KETOROLAC (Verified Allergy, Severe, 07/18/16) EFAVIRENZ (Verified Allergy, Unknown, 01/08/17) NELFINAVIR (Verified Allergy, Unknown, 01/08/17) NSAIDS (NON-STEROIDAL ANTI-INFLAMMA (Verified Allergy, Unknown, 07/18/16) COPIED FROM UNCODED SECTION Patient History Past Medical History: asthma Past Surgical History: none Pertinent Family History: none Social History: Denies: smoking, alcohol use, drug use Immunizations: UTD Reviewed Nursing Documentation: PMH: Agreed; PSxH: Agreed Nursing Documentation-PMH Hx Asthma: Yes Hx Cancer: Yes - Karposis sarcoma [id number] Hx Gastrointestinal Problems: Yes - Indigestion Hx Neurological Problems: No - Rabdo Review of Systems All Other Systems: negative except mentioned in HPI Physical Exam Vital Signs Date Time Temp Pulse Resp B/P (MAP) Pulse Ox O2 Delivery O2 Flow Rate FiO2 06/19/17 11:11 99.0 97 20 143/94 93 Room Air 99.0 Sp02 EP Interpretation: reviewed, normal General Appearance: no apparent distress, alert, GCS 15, non-toxic Head: normocephalic, atraumatic Eyes: bilateral eye normal inspection, bilateral eye PERRL ENT: hearing grossly normal, normal pharynx, no angioedema, normal voice Neck: full range of motion, supple/symm/no masses Respiratory: chest non-tender, lungs clear, normal breath sounds, speaking full sentences Cardiovascular #1: regular rate, rhythm, no edema Cardiovascular #2: 2+ carotid (R), 2+ carotid (L), 2+ radial (R), 2+ radial (L) , 2+ dorsalis pedis (R), 2+ dorsalis pedis (L) Gastrointestinal: normal bowel sounds, non tender, soft, non-distended, no guarding, no rebound Rectal: deferred Genitourinary: normal inspection, no CVA tenderness Musculoskeletal: back normal, gait/station normal, normal range of motion, non- tender Neurologic: alert, oriented x3, responsive, motor strength/tone normal, sensory intact, speech normal Psychiatric: judgement/insight normal, memory normal, mood/affect normal, no suicidal/homicidal ideation Reflexes: 3+ bicep (R), 3+ bicep (L), 3+ tricep (R), 3+ tricep (L), 3+ knee (R) , 3+ knee (L) Skin: normal color, no rash, warm/dry, well hydrated Lymphatic: no adenopathy Medical Decision Making Diagnostic Impression: Primary Impression: Atypical pneumonia ER Course Hospital Course 52-year-old male presents ED complaining of cough, congestion Differential diagnoses include: URI, pharyngitis, otitis media, asthma Clinical course Patient placed on stretcher. After initial history, physical exam reveals a male in no acute distress. Bilateral TM unremarkable. No pharyngeal erythema. No tonsillar exudates. No lymphadenopathy. lungs clear. abdomen soft. CXr shows no acute lobar conslidation Given history of HIV and immunocompromised state we will prescribe antibiotics Diagnosis - atypical pneumonia Stable and discharged home with Rx Amoxicillin. Instructed to followup with PMD. Return to ED if symptoms recur or worsen Chest X-Ray Diagnostic Results Chest X-Ray Diagnostic Results : Chest X-Ray Ordered: Yes # of Views/Limited/Complete: 1 View Indication: Other - cough EP Interpretation: Yes Interpretation: no consolidation, no effusion, no pneumothorax, no acute cardiopulmonary disease Impression: No acute disease Electronically Signed by: Electronically signed by Dwight Yee MD Last Vital Signs Date Time Temp Pulse Resp B/P (MAP) Pulse Ox O2 Delivery O2 Flow Rate FiO2 06/19/17 11:21 98.6 96 18 136/85 96 Room Air 98.6 Status: improved Disposition: HOME, SELF-CARE Condition: Stable Scripts Codeine/Promethazine Hcl* (PROMETHAZINE-CODEINE SYRUP*) 118 Ml Syrup 5 ML ORAL Q6H PRN for For Cough, #118 ML 0 Refills Prov: DWIGHT YEE M.D. 06/19/17 Amoxicillin* (AMOXIL*) 500 Mg Capsule 500 MG ORAL THREE TIMES A DAY, #21 CAP Prov: DWIGHT YEE M.D. 06/19/17 Referrals: [facility] (PCP) DWIGHT YEE M.D. Jun 19, 2017 11:56
--- NOTE | 2017-06-19 12:24 | Diagnostic Imaging Report ---
Indication: Reason For Exam: COUGH Technique: One view of the chest Comparison: 03/24/2017 Findings: Lungs and pleural spaces are clear. Heart size is normal. No significant interim change Impression: No acute process
[2017-06-19] MEDS ORDERED: PROMETHAZINE-C118 M1 ORAL (12:25)
[2017-06-19] MEDS ORDERED: AMOXICILLIN500 MG ORAL (12:25)
[2017-06-19 12:30] VITALS: BP 136/92
== END 2017-06-19 12:30 | disposition home or self-care (01) ==
LOC: EMR 11:40
DX: J18.9 Pneumonia, unspecified organism (principal); J45.909 Unspecified asthma, uncomplicated; Z88.6 Allergy status to analgesic agent; Z88.8 Allergy status to other drugs, medicaments and biological substances; Z85.9 Personal history of malignant neoplasm, unspecified
CPT/HCPCS: 71045; 99284

== ENCOUNTER 2017-07-09 18:43 | Emergency (ER) | payer MEDICAID ==
[~2017-07-09] VITALS: Ht 170.2 cm; Wt 74.4 kg
[~2017-07-09 18:43] MED LIST changes: +AMOXICILLIN500 MG ORAL; +PROMETHAZINE-C118 M1 ORAL
[2017-07-09] MEDS ORDERED: AMOX TR-K CLV1 EAC2 ORAL (18:53)
[2017-07-09] MEDS ORDERED: NEXAFED30 MG ORAL (18:53)
[2017-07-09] MEDS ORDERED: MUCINEX600 MG PO (18:53)
[2017-07-09] MEDS ORDERED: ZYRTEC10 MG ORAL (18:53)
[2017-07-09 18:56] VITALS: BP 137/90
[2017-07-09] MEDS ORDERED: Albuterol/Ipratropium 3ml neb HHN ONE (19:15)
[2017-07-09 19:48] LABS: BASOPHILS % (AUTO) 0.9 % (0.0-2.0); EOSINOPHILS % (AUTO) 1.8 % (0.0-3.0); HEMOGLOBIN 16.5 G/DL (14.2-18.0); LYMPHOCYTES % (AUTO) 42.6 % (20.0-45.0); MEAN CORPUSCULAR VOLUME 92 FL (80-99); MONOCYTES % (AUTO) 8.1 % (1.0-10.0); NEUTROPHILS % (AUTO) 46.5 % (45.0-75.0); PLATELET COUNT 257 K/UL (150-450); RED BLOOD COUNT 5.12 M/UL (4.70-6.10); RED CELL DISTRIBUTION WIDTH 11.6 % (11.6-14.8); WHITE BLOOD COUNT 6.2 K/UL (4.8-10.8)
[2017-07-09 19:54] LABS: ANION GAP 9 mmol/L (5-15); BLOOD UREA NITROGEN 14 mg/dL (7-18); CALCIUM 9.3 MG/DL (8.5-10.1); CARBON DIOXIDE 29 MMOL/L (21-32); CHLORIDE 101 MMOL/L (98-107); CREATININE 1.2 MG/DL (0.55-1.30); SODIUM 139 MMOL/L (136-145)
[2017-07-09 19:59] LABS: ALANINE AMINOTRANSFERASE 32 U/L (12-78); ALBUMIN 4.2 G/DL (3.4-5.0); ALBUMIN/GLOBULIN RATIO 1.1 (1.0-2.7); ALKALINE PHOSPHATASE 134 U/L (46-116); ASPARTATE AMINO TRANSFERASE 29 U/L (15-37); BILIRUBIN,TOTAL 0.7 MG/DL (0.2-1.0)
[2017-07-09] MEDS ORDERED: CLARITIN10 MG ORAL (20:03)
[2017-07-09] MEDS ORDERED: PREDNISONE20 MG ORAL (20:08)
[2017-07-09 20:30] VITALS: BP 113/79
[2017-07-09 20:32] VITALS: BP 113/79
--- NOTE | 2017-07-09 21:01 | Emergency Room Report ---
History of Present Illness General Chief Complaint: Dyspnea/Respdistress Source: Patient Present Illness HPI Patient's a 52-year-old male who presented after increased difficulty breathing. Patient gradual onset of symptoms. Patient recently been noted to have increased trouble with generalized body rash. Patient recently been taking amoxicillin clavulanate for sinus infection. Patient previously been prescribed amoxicillin for 7 days without any problems. The patient subsequently began having increased rash to his ear associated with some increased itching. Denies any fever. Allergies: Coded Allergies: KETOROLAC (Verified Allergy, Severe, 07/18/16) EFAVIRENZ (Verified Allergy, Unknown, 01/08/17) NELFINAVIR (Verified Allergy, Unknown, 01/08/17) NSAIDS (NON-STEROIDAL ANTI-INFLAMMA (Verified Allergy, Unknown, 07/18/16) COPIED FROM UNCODED SECTION Patient History Past Medical History: see triage record Reviewed Nursing Documentation: PMH: Agreed; PSxH: Agreed Nursing Documentation-PMH Hx Asthma: Yes Hx Cancer: Yes - Karposis sarcoma [id number] Hx Gastrointestinal Problems: Yes - Indigestion Hx Neurological Problems: No - Rhabdomyolisis 2015. Review of Systems All Other Systems: negative except mentioned in HPI Physical Exam Vital Signs Date Time Temp Pulse Resp B/P (MAP) Pulse Ox O2 Delivery O2 Flow Rate FiO2 07/09/17 18:46 98.3 83 19 135/90 92 Room Air 98.2 07/09/17 19:30 21 Sp02 EP Interpretation: reviewed, normal General Appearance: normal inspection, well appearing, no apparent distress, alert, GCS 15 Head: atraumatic ENT: normal ENT inspection, hearing grossly normal, normal voice Neck: normal inspection, full range of motion, supple, no bony tend Respiratory: normal inspection, lungs clear, normal breath sounds, no respiratory distress, no retraction, no wheezing Cardiovascular #1: regular rate, rhythm, no edema Gastrointestinal: normal inspection, normal bowel sounds, non tender, soft, no guarding, no hernia Genitourinary: no CVA tenderness Musculoskeletal: normal inspection, back normal, normal range of motion Neurologic: normal inspection, alert, responsive, speech normal Psychiatric: normal inspection, judgement/insight normal, mood/affect normal Skin: normal color, no rash, other - faint generalized rash Medical Decision Making Diagnostic Impression: Primary Impression: Allergic reaction caused by a drug ER Course Patient presented for shortness of breath. Differential included but was not limited to allergic reaction, anemia, pneumonia, pneumothorax, myocardial infarction, pericardial effusion, congestive heart failure, acidosis. Chest x- ray one view interpreted by me showed normal cardiac size without evident infiltrate. Patient was given oral steroids. He was noted to have improvement in his respiratory status after breathing treatment. Patient was noted to have EKG interpreted by me normal sinus rhythm with a rate of [address] or T wave changes. Laboratory studies were unremarkable. Troponin was noted to be negative. The patient appears to have allergic reaction. This likely is due to recent antibiotic change. The patient is advised to follow up with primary care doctor in 1-2 days. Patient is advised to return if any worsening condition or if any changes in status that are concerning. This report is dictated with [employer] multimedia artist software which may occasionally lead to discrepancies related to use of this software. Last Vital Signs Date Time Temp Pulse Resp B/P (MAP) Pulse Ox O2 Delivery O2 Flow Rate FiO2 07/09/17 20:32 98.2 74 18 113/79 98 Room Air 21 98.2 Status: improved Disposition: HOME, SELF-CARE Condition: Stable Scripts Prednisone* (PREDNISONE*) 20 Mg Tablet 40 MG ORAL DAILY, #10 TAB Prov: Russell Taveras 07/09/17 Patient Instructions: Drug Allergy Russell Taveras Jul 09, 2017 21:01
--- NOTE | 2017-07-10 08:59 | Diagnostic Imaging Report ---
Indication: Shortness of breath Technique: One view of the chest Comparison: 06/19/2017 Findings: Lungs and pleural spaces are clear. The heart size is normal. No significant change Impression: Negative
--- NOTE | 2017-07-10 21:22 | Cardiology Report ---
APPROVED REPORT EKG Measurement Heart [id number] NE [id number] [id number] Normal sinus rhythm Normal ECG
== END 2017-07-09 20:35 | disposition home or self-care (01) ==
LOC: EMR 19:30
DX: T50.905A Adverse effect of unspecified drugs, medicaments and biological substances, initial encounter (principal); Y92.9 Unspecified place or not applicable; Z88.8 Allergy status to other drugs, medicaments and biological substances; Z85.89 Personal history of malignant neoplasm of other organs and systems
CPT/HCPCS: 36415; 71045; 80053; 84484; 85025; 93005; 94640; 99283; J7512; J7620

== ENCOUNTER 2017-09-11 02:00 | Emergency (ER) | payer MEDICAID ==
[~2017-09-11] VITALS: Ht 170.2 cm; Wt 73.5 kg
[~2017-09-11 02:00] MED LIST changes: +AMOX TR-K CLV1 EAC2 ORAL; +CLARITIN10 MG ORAL; +MUCINEX600 MG PO; +NEXAFED30 MG ORAL; +ZYRTEC10 MG ORAL
[2017-09-11 02:25] VITALS: BP 126/84
[2017-09-11] MEDS ORDERED: Dicyclomine HCl 10mg/5ml oral soln ORAL ONE (02:30)
[2017-09-11] MEDS ORDERED: Mylanta II UD 30ml ORAL ONE (02:30)
[2017-09-11] MEDS ORDERED: Lidocaine 2% Visc 15ml soln ORAL ONE (02:30)
[2017-09-11 02:59] LABS: BASOPHILS % (AUTO) 0.6 % (0.0-2.0); EOSINOPHILS % (AUTO) 1.6 % (0.0-3.0); HEMATOCRIT 46.6 % (42.0-52.0); HEMOGLOBIN 16.6 G/DL (14.2-18.0); LYMPHOCYTES % (AUTO) 48.1 % (20.0-45.0); MEAN CORPUSCULAR VOLUME 92 FL (80-99); MONOCYTES % (AUTO) 8.7 % (1.0-10.0); PLATELET COUNT 259 K/UL (150-450); RED BLOOD COUNT 5.05 M/UL (4.70-6.10); RED CELL DISTRIBUTION WIDTH 11.5 % (11.6-14.8); WHITE BLOOD COUNT 5.4 K/UL (4.8-10.8)
[2017-09-11 03:08] LABS: ANION GAP 7 mmol/L (5-15); BLOOD UREA NITROGEN 13 mg/dL (7-18); CALCIUM 8.9 MG/DL (8.5-10.1); CARBON DIOXIDE 29 MMOL/L (21-32); CHLORIDE 102 MMOL/L (98-107); CREATININE 1.3 MG/DL (0.55-1.30); SODIUM 138 MMOL/L (136-145)
[2017-09-11 03:12] LABS: ALANINE AMINOTRANSFERASE 42 U/L (12-78); ALBUMIN 4.1 G/DL (3.4-5.0); ALBUMIN/GLOBULIN RATIO 1.1 (1.0-2.7); ALKALINE PHOSPHATASE 124 U/L (46-116); ASPARTATE AMINO TRANSFERASE 32 U/L (15-37); BILIRUBIN,TOTAL 0.5 MG/DL (0.2-1.0)
[2017-09-11 03:25] VITALS: BP 118/78
[2017-09-11 03:40] VITALS: BP 122/74
[2017-09-11] MEDS ORDERED: RANITIDINE HCL150 MG ORAL (03:51)
[2017-09-11 04:00] VITALS: BP 118/78
--- NOTE | 2017-09-11 04:44 | Emergency Room Report ---
History of Present Illness General Chief Complaint: Abdominal Pain Source: Medical Record Present Illness HPI 52-year-old male presents ED complaining of abdominal pain with nausea times one day. Pain is burning, epigastric, 8 out of 10, nonradiating. States when he gets the pain he feels dizzy. Denies chest pain or shortness of breath. History of HIV states he is compliant with his medications. No other aggravating relieving factors. Denies any other associated symptoms Allergies: Coded Allergies: KETOROLAC (Verified Allergy, Severe, 07/18/16) EFAVIRENZ (Verified Allergy, Unknown, 01/08/17) NELFINAVIR (Verified Allergy, Unknown, 01/08/17) NSAIDS (NON-STEROIDAL ANTI-INFLAMMA (Verified Allergy, Unknown, 07/18/16) COPIED FROM UNCODED SECTION Patient History Past Medical History: asthma, GERD, HIV Pertinent Family History: none Social History: Denies: smoking, alcohol use, drug use Immunizations: UTD Reviewed Nursing Documentation: PMH: Agreed; PSxH: Agreed Nursing Documentation-PMH Past Medical History: No History, Except For Hx Asthma: Yes 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 Hx Gastrointestinal Problems: Yes - Indigestion Hx Dialysis: No - CRF Hx Neurological Problems: No - Rhabdomyolisis 2016 Review of Systems All Other Systems: negative except mentioned in HPI Physical Exam Vital Signs Date Time Temp Pulse Resp B/P (MAP) Pulse Ox O2 Delivery O2 Flow Rate FiO2 09/11/17 02:07 98.7 71 16 121/84 99 Room Air 98.8 Sp02 EP Interpretation: reviewed, normal General Appearance: no apparent distress, alert, GCS 15, non-toxic Head: normocephalic Eyes: bilateral eye normal inspection, bilateral eye PERRL ENT: normal ENT inspection Neck: normal inspection Respiratory: chest non-tender, lungs clear, normal breath sounds, speaking full sentences Cardiovascular #1: regular rate, rhythm, no edema Gastrointestinal: normal bowel sounds, soft, non-distended, no guarding, no rebound, tenderness - epigastric Rectal: deferred Genitourinary: no CVA tenderness Musculoskeletal: normal inspection Neurologic: alert, oriented x3, responsive, motor strength/tone normal, sensory intact, speech normal Psychiatric: anxious Skin: normal inspection Lymphatic: normal inspection Medical Decision Making Diagnostic Impression: Primary Impression: Gastritis Qualified Codes: K29.00 - Acute gastritis without bleeding Additional Impression: Anxiety ER Course Hospital Course 52-year-old M presents to ED with epigastric pain with Nausea differential diagnosis: gastritis, SBO, cholecystits Clinical course Patient placed on stretcher. On rn cardiac rehab. After initial history and physical I ordered labs, IV fluids, Zofran and pepcid Labs - no leukocytosis, no electrolyte abnormalities, LFTs normal CXR no acute process Upon reassessment, patient states pain has improved. findings consistent with gastritis Patient has been here multiple times for episodes of gastritis. Also has history of anxiety which are exacerbating his symptoms. Recommend that he follow up with GI as outpatient for possible endoscopy I feel this is a highly complex case requiring extensive working including EKG/ Rhythm strip, Xray/CT/US, Blood/urine lab work, repeat exams while in ED, and administration of strong opiates/narcotics for pain control, admission to hospital or close patient follow up. Diagnosis - gastritis, anxiety Stable and discharged to home with prescriptions for Zantac. Followup with PMD. Return to ED if symptoms recur or worsen Labs Test 09/11/17 02:34 White Blood Count 5.4 K/UL (4.8-10.8) Red Blood Count 5.05 M/UL (4.70-6.10) Hemoglobin 16.6 G/DL (14.2-18.0) Hematocrit 46.6 % (42.0-52.0) Mean Corpuscular Volume 92 FL (80-99) Mean Corpuscular Hemoglobin 32.9 PG (27.0-31.0) Mean Corpuscular Hemoglobin Concent 35.6 G/DL (32.0-36.0) Red Cell Distribution Width 11.5 % (11.6-14.8) Platelet Count 259 K/UL (150-450) Mean Platelet Volume 7.2 FL (6.5-10.1) Neutrophils (%) (Auto) 41.0 % (45.0-75.0) Lymphocytes (%) (Auto) 48.1 % (20.0-45.0) Monocytes (%) (Auto) 8.7 % (1.0-10.0) Eosinophils (%) (Auto) 1.6 % (0.0-3.0) Basophils (%) (Auto) 0.6 % (0.0-2.0) Sodium Level 138 MMOL/L (136-145) Potassium Level 4.0 MMOL/L (3.5-5.1) Chloride Level 102 MMOL/L (98-107) Carbon Dioxide Level 29 MMOL/L (21-32) Anion Gap 7 mmol/L (5-15) Blood Urea Nitrogen 13 mg/dL (7-18) Creatinine 1.3 MG/DL (0.55-1.30) Estimat Glomerular Filtration Rate 58.4 mL/min (>60) Glucose Level 104 MG/DL (74-106) Calcium Level 8.9 MG/DL (8.5-10.1) Total Bilirubin 0.5 MG/DL (0.2-1.0) Aspartate Amino Transf (AST/SGOT) 32 U/L (15-37) Alanine Aminotransferase (ALT/SGPT) 42 U/L (12-78) Alkaline Phosphatase 124 U/L (46-116) Total Protein 7.9 G/DL (6.4-8.2) Albumin 4.1 G/DL (3.4-5.0) Globulin 3.8 g/dL Albumin/Globulin Ratio 1.1 (1.0-2.7) Lipase 277 U/L (73-393) Chest X-Ray Diagnostic Results Chest X-Ray Diagnostic Results : Chest X-Ray Ordered: Yes # of Views/Limited/Complete: 1 View Indication: Chest Pain EP Interpretation: Yes Interpretation: no consolidation, no effusion, no pneumothorax, no acute cardiopulmonary disease Impression: No acute disease Electronically Signed by: Electronically signed by Dwight Yee MD Last Vital Signs Date Time Temp Pulse Resp B/P (MAP) Pulse Ox O2 Delivery O2 Flow Rate FiO2 09/11/17 04:00 98.8 61 16 118/78 99 Room Air 98.8 Status: improved Disposition: HOME, SELF-CARE Condition: Stable Scripts Ranitidine Hcl* (ZANTAC*) 150 Mg Tablet 150 MG ORAL TWICE A DAY, #30 TAB Prov: Dwight Yee MD 09/11/17 Referrals: [facility]ERR[facility] (PCP) Patient Instructions: Gastritis, Adult, [id number] Additional Instructions: followup with your PMD. consider referral to GI for endoscopy Dwight Yee MD Sep 11, 2017 04:44
--- NOTE | 2017-09-11 18:38 | Diagnostic Imaging Report ---
Indication: Pain Technique: XRAY Chest 1v Comparison: 07/09/2017 Findings: Heart size and mediastinal contours are within normal limits given technique. There is no focal consolidation, pneumothorax or pleural effusion. Osseous structures demonstrate no acute abnormality. Impression: No radiographic evidence of acute cardiopulmonary disease.
== END 2017-09-11 04:00 | disposition home or self-care (01) ==
LOC: EMR 02:25
DX: K29.70 Gastritis, unspecified, without bleeding (principal); F41.9 Anxiety disorder, unspecified; Z88.8 Allergy status to other drugs, medicaments and biological substances; Z88.6 Allergy status to analgesic agent; J45.909 Unspecified asthma, uncomplicated; N18.9 Chronic kidney disease, unspecified
CPT/HCPCS: 36415; 71045; 80053; 83690; 85025; 96361; 96374; 99284; S0028; 96360

== ENCOUNTER 2018-02-07 13:24 | Emergency (ER) | payer MEDICAID ==
[~2018-02-07] VITALS: Ht 170.2 cm; Wt 73.9 kg
[~2018-02-07 13:24] MED LIST changes: +RANITIDINE HCL150 MG ORAL
[2018-02-07 13:55] VITALS: BP 119/84
[2018-02-07 14:24] LABS: BASOPHILS % (AUTO) 0.4 % (0.0-2.0); EOSINOPHILS % (AUTO) 0.5 % (0.0-3.0); HEMATOCRIT 50.7 % (42.0-52.0); HEMOGLOBIN 17.7 G/DL (14.2-18.0); LYMPHOCYTES % (AUTO) 43.7 % (20.0-45.0); MEAN CORPUSCULAR VOLUME 90 FL (80-99); MONOCYTES % (AUTO) 7.9 % (1.0-10.0); NEUTROPHILS % (AUTO) 47.5 % (45.0-75.0); PLATELET COUNT 239 K/UL (150-450); RED BLOOD COUNT 5.65 M/UL (4.70-6.10); RED CELL DISTRIBUTION WIDTH 11.2 % (11.6-14.8); WHITE BLOOD COUNT 5.8 K/UL (4.8-10.8)
[2018-02-07 14:34] LABS: APPEARANCE,URINE CLEAR; COLOR,URINE PALE YELLOW
[2018-02-07 14:35] LABS: BILIRUBIN, URINE NEGATIVE (NEGATIVE); GLUCOSE, URINE (UA) NEGATIVE (NEGATIVE); KETONES,URINE NEGATIVE (NEGATIVE); LEUKOCYTE ESTERASE ,URINE NEGATIVE (NEGATIVE); NITRITE,URINE NEGATIVE (NEGATIVE); PROTEIN,URINE NEGATIVE (NEGATIVE); UROBILINOGEN,URINE NORMAL MG/DL (0.0-1.0)
[2018-02-07 14:42] LABS: ANION GAP 10 mmol/L (5-15); BLOOD UREA NITROGEN 12 mg/dL (7-18); CALCIUM 9.4 MG/DL (8.5-10.1); CARBON DIOXIDE 27 MMOL/L (21-32); CHLORIDE 103 MMOL/L (98-107); CREATININE 1.4 MG/DL (0.55-1.30); POTASSIUM 3.9 MMOL/L (3.5-5.1); SODIUM 140 MMOL/L (136-145)
[2018-02-07 15:00] LABS: ALANINE AMINOTRANSFERASE 45 U/L (12-78); ALBUMIN 4.3 G/DL (3.4-5.0); ALBUMIN/GLOBULIN RATIO 0.9 (1.0-2.7); ALKALINE PHOSPHATASE 130 U/L (46-116); ASPARTATE AMINO TRANSFERASE 41 U/L (15-37); BILIRUBIN,TOTAL 0.5 MG/DL (0.2-1.0)
--- NOTE | 2018-02-07 15:00 | Emergency Room Report ---
History of Present Illness General Chief Complaint: Chest Pain Source: Patient Present Illness HPI 52-year-old male, history of HIV on medications, last CD4 count 700, viral load undetectable,, p/w epigastric/chest pain for 6 months. Pain Localized to epigastric area, radiates to substernal area, no radiation to back, burning in nature, gradual in onset, l has had multiple episodes - SOB. Complains of some nausea but no vomiting. Denies palpitations, diaphoresis. He is scheduled to see a mask design engineer next week Denies fever, chills, cough, abd pain, recent viral illness. Denies trauma. Denies cardiac history, smoking, or family history of cardiac disease at a young age. Denies history of PE/DVT, no recent surgeries, prolonged immobilzation, malignancy Denies any chronic Motrin use. He says that she has chronic kidney disease and he is not able to take NSAIDs Allergies: Coded Allergies: KETOROLAC (Verified Allergy, Severe, 07/18/16) EFAVIRENZ (Verified Allergy, Unknown, 01/08/17) NELFINAVIR (Verified Allergy, Unknown, 01/08/17) NSAIDS (NON-STEROIDAL ANTI-INFLAMMA (Verified Allergy, Unknown, 07/18/16) COPIED FROM UNCODED SECTION Patient History Past Medical History: see triage record Past Surgical History: none Pertinent Family History: none Reviewed Nursing Documentation: PMH: Agreed; PSxH: Agreed Nursing Documentation-PMH Past Medical History: No History, Except For Hx Asthma: Yes Hx Cancer: Yes - Karposis sarcoma [id number] Hx Gastrointestinal Problems: Yes - gastritis Hx Dialysis: No - CRF Hx Neurological Problems: No - Rhabdomyolisis 2016 Review of Systems All Other Systems: negative except mentioned in HPI Physical Exam Vital Signs Date Time Temp Pulse Resp B/P (MAP) Pulse Ox O2 Delivery O2 Flow Rate FiO2 02/07/18 13:37 97.9 84 18 136/83 96 Room Air Sp02 EP Interpretation: reviewed, normal General Appearance: normal inspection, well appearing, no apparent distress, alert, GCS 15, non-toxic Head: normocephalic, atraumatic Eyes: bilateral eye normal inspection, bilateral eye PERRL, bilateral eye EOMI ENT: normal ENT inspection, normal pharynx, normal voice, moist mucus membranes Neck: normal inspection, full range of motion, supple Respiratory: normal inspection, lungs clear, normal breath sounds, no respiratory distress, no retraction, no wheezing, speaking full sentences, chest symmetrical Cardiovascular #1: normal inspection, regular rate, rhythm, no edema, normal capillary refill Cardiovascular #2: 2+ radial (R), 2+ radial (L) Gastrointestinal: other - Mild epigastric tenderness, without guarding or rigidity, no right upper quadrant tenderness, no focal lower quadrant tenderness Genitourinary: no CVA tenderness Musculoskeletal: normal inspection, back normal, normal range of motion, non- tender Neurologic: normal inspection, alert, oriented x3, responsive, motor strength/ tone normal, sensory intact, normal gait, speech normal Psychiatric: normal inspection, judgement/insight normal, memory normal Skin: normal inspection, normal color, no rash, warm/dry, well hydrated, normal turgor Medical Decision Making Diagnostic Impression: Primary Impression: Chronic epigastric pain Additional Impression: Elevated lipase ER Course 52-year-old male with epigastric/chest pain for the last 6 months DDX: Musculoskeletal CP/costochondritis vs. pneumothorax vs. gastritis/GERD ACS less likely given age/history Plan: Labs, EKG, chest x-ray, Pepcid and Zofran Anticipate DC home as patient appears clinically well. ER course: Patient was treated pepcid and zofran with improvement of pain. Patient remains well appearing in ED. lipase slightly elevated 401 but not high enough for pancreatitis repeat abd exam benign Disposition: Patient will be discharged to home with a prescription of pepcid Strict precautions discussed with patient on when to emergently return to the ED : this includes worsening/severe chest pain, palpitations, shortness of breath, syncopal episodes, fever or chills, which may indicate severe illness. Patient verbalized understanding. Patient instructed to follow up with their PMD within the next 2 days. also told must fu lipase Patient agrees with plan. Please note that this Emergency Department Report was dictated using [employer] perioperative technology software, occasionally this can lead to erroneous entry secondary to interpretation by the dictation equipment. EKG Diagnostic Results EP Interpretation: Yes Rate: normal Rhythm: NSR ST Segments: No acute changes ASA given to patient: N Rhythm Strip EP Interpretation: Yes Rate: 70 Rhythm: NSR, no PVCs, no ectopy Chest X-ray CXR: Ordered: Yes 1 view Indication: Chest pain EP interpretation: Yes Interpretation: No consolidation, no effusion, no PTX, no acute cardiopulmonary disease Impression: No acute disease Electronically signed by Robyn Ryan MD Laboratory Tests Test 02/07/18 14:10 White Blood Count 5.8 K/UL (4.8-10.8) Red Blood Count 5.65 M/UL (4.70-6.10) Hemoglobin 17.7 G/DL (14.2-18.0) Hematocrit 50.7 % (42.0-52.0) Mean Corpuscular Volume 90 FL (80-99) Mean Corpuscular Hemoglobin 31.3 PG (27.0-31.0) H Mean Corpuscular Hemoglobin Concent 34.8 G/DL (32.0-36.0) Red Cell Distribution Width 11.2 % (11.6-14.8) L Platelet Count 239 K/UL (150-450) Mean Platelet Volume 8.4 FL (6.5-10.1) Neutrophils (%) (Auto) 47.5 % (45.0-75.0) Lymphocytes (%) (Auto) 43.7 % (20.0-45.0) Monocytes (%) (Auto) 7.9 % (1.0-10.0) Eosinophils (%) (Auto) 0.5 % (0.0-3.0) Basophils (%) (Auto) 0.4 % (0.0-2.0) Urine Color Pale yellow Urine Appearance Clear Urine pH 8.0 (4.5-8.0) Urine Specific [place] 1.010 (1.005-1.035) Urine Protein Negative (NEGATIVE) Urine Glucose (UA) Negative (NEGATIVE) Urine Ketones Negative (NEGATIVE) Urine Blood Negative (NEGATIVE) Urine Nitrite Negative (NEGATIVE) Urine Bilirubin Negative (NEGATIVE) Urine Urobilinogen Normal MG/DL (0.0-1.0) Urine Leukocyte Esterase Negative (NEGATIVE) Sodium Level 140 MMOL/L (136-145) Potassium Level 3.9 MMOL/L (3.5-5.1) Chloride Level 103 MMOL/L (98-107) Carbon Dioxide Level 27 MMOL/L (21-32) Anion Gap 10 mmol/L (5-15) Blood Urea Nitrogen 12 mg/dL (7-18) Creatinine 1.4 MG/DL (0.55-1.30) H Estimate Glomerular Filtration Rate 53.6 mL/min (>60) Glucose Level 99 MG/DL (74-106) Calcium Level 9.4 MG/DL (8.5-10.1) Total Bilirubin 0.5 MG/DL (0.2-1.0) Aspartate Amino Transferase (AST) 41 U/L (15-37) H Alanine Aminotransferase (ALT) 45 U/L (12-78) Alkaline Phosphatase 130 U/L (46-116) H Total Creatine Kinase 293 U/L (26-308) Troponin I 0.000 ng/mL (0.000-0.056) Pro-B-Type Natriuretic Peptide 9 pg/mL (0-125) Total Protein 9.0 G/DL (6.4-8.2) H Albumin 4.3 G/DL (3.4-5.0) Globulin 4.7 g/dL Albumin/Globulin Ratio 0.9 (1.0-2.7) L Lipase 401 U/L (73-393) H Last Vital Signs Date Time Temp Pulse Resp B/P (MAP) Pulse Ox O2 Delivery O2 Flow Rate FiO2 02/07/18 13:55 97.9 74 18 119/84 98 Room Air Disposition: HOME, SELF-CARE Condition: Improved Scripts Famotidine (PEPCID AC) 20 Mg Tablet 20 MG PO DAILY, #30 TAB Prov: Robyn Ryan M.D. 02/07/18 Referrals: NON PHYSICIAN (PCP) Patient Instructions: Nonspecific Chest Pain, Heartburn Robyn Ryan M.D. Feb 07, 2018 15:00
[2018-02-07] MEDS ORDERED: PEPCID AC20 M2 PO (15:01)
[2018-02-07 15:22] LABS: CREATINE KINASE 293 U/L (26-308)
[2018-02-07 16:20] VITALS: BP 121/79
--- NOTE | 2018-02-07 16:21 | Diagnostic Imaging Report ---
Indication: Chest pain Technique: One view of the chest Comparison: 09/11/2017 Findings: Lungs and pleural spaces are clear. The heart size is normal. There is no significant interim change other than better inspiration on the current exam. Impression: No acute process
[2018-02-07 17:00] VITALS: BP 121/79
--- NOTE | 2018-02-09 16:39 | Cardiology Report ---
APPROVED REPORT EKG Measurement Heart [id number] Normal sinus rhythm Normal ECG
== END 2018-02-07 17:00 | disposition home or self-care (01) ==
LOC: EMR 13:54
DX: R10.13 Epigastric pain (principal); G89.29 Other chronic pain; R74.8 Abnormal levels of other serum enzymes; R07.9 Chest pain, unspecified; J45.909 Unspecified asthma, uncomplicated; N18.9 Chronic kidney disease, unspecified; Z85.89 Personal history of malignant neoplasm of other organs and systems; Z87.19 Personal history of other diseases of the digestive system; Z88.8 Allergy status to other drugs, medicaments and biological substances
CPT/HCPCS: 36415; 71045; 80053; 81003; 82550; 83690; 83880; 84484; 85025; 93005; 96374; 96375; 99284; J2405; S0028

== ENCOUNTER 2018-04-10 01:17 | Emergency (ER) | payer MEDICAID ==
[~2018-04-10] VITALS: Ht 167.6 cm; Wt 73.5 kg
[~2018-04-10 01:17] MED LIST changes: +PEPCID AC20 M2 PO
--- NOTE | 2018-04-10 01:29 | NUR ---
ED Nurse Note: patient has complaints of head pain x a few hours 09/03.
--- NOTE | 2018-04-10 01:59 | Emergency Room Report ---
History of Present Illness General Chief Complaint: Eye Problems Source: Patient Present Illness HPI Patient presents with reports that around midnight he was reading when he realized that he could not see the first letter of each wart that he was reading Patient is also been having a headache for the past several weeks Denies any chest pain denies any focal weakness Patient reports that soon after that he had an episode of some blurring of his vision Both symptoms have now resolved On attempt of reading at bedside patient has appropriate vision And does not have any similar findings Denies any sinus pressure denies any posterior neck pain or photophobia On further discussion patient had an MRI of his brain on Monday and is seeing a neurologist for his headaches Allergies: Coded Allergies: KETOROLAC (Verified Allergy, Severe, 07/18/16) EFAVIRENZ (Verified Allergy, Unknown, 01/08/17) NELFINAVIR (Verified Allergy, Unknown, 01/08/17) NSAIDS (NON-STEROIDAL ANTI-INFLAMMA (Verified Allergy, Unknown, 07/18/16) COPIED FROM UNCODED SECTION Patient History Past Medical History: see triage record Pertinent Family History: none Reviewed Nursing Documentation: PMH: Agreed; PSxH: Agreed Nursing Documentation-PMH Hx Asthma: Yes Hx Cancer: Yes - Karposis sarcoma [id number] Hx Gastrointestinal Problems: Yes - Gastritis; Pancreatitis 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 Hx Neurological Problems: No - Rhabdomyolisis 2015 Review of Systems All Other Systems: negative except mentioned in HPI Physical Exam Vital Signs Date Time Temp Pulse Resp B/P (MAP) Pulse Ox O2 Delivery O2 Flow Rate FiO2 04/10/18 01:23 98.2 68 16 138/102 97 Room Air Sp02 EP Interpretation: reviewed, normal General Appearance: well appearing, no apparent distress Head: normocephalic, atraumatic Eyes: bilateral eye PERRL, bilateral eye EOMI ENT: hearing grossly normal, normal pharynx, TMs + canals normal, uvula midline Neck: full range of motion, supple, no meningismus, no bony tend Respiratory: lungs clear, normal breath sounds, no rhonchi, no respiratory distress, no retraction, no accessory muscle use Cardiovascular #1: normal peripheral pulses, regular rate, rhythm, no edema, no gallop, no JVD, no murmur Gastrointestinal: normal bowel sounds, non tender, soft, no mass, no organomegaly, non-distended, no guarding, no hernia, no pulsatile mass, no rebound Genitourinary: no CVA tenderness Musculoskeletal: normal inspection Neurologic: oriented x3, responsive, tow picker III-XII nml as tested, motor strength/ tone normal, sensory intact Psychiatric: mood/affect normal Skin: normal color, no rash, warm/dry, palpation normal Lymphatic: normal inspection, no adenopathy Medical Decision Making Diagnostic Impression: Primary Impression: Migraine aura, persistent ER Course Given the patient's history and presentation multiple differentials considered On reevaluation patient's vision is completely at baseline does not have any other change in Vision there is association strongly with his headaches Patient also has had MRI 2 days ago and following closely with neurology Patient is observed further remains hemodynamically stable given the patient's resolution I did not feel there was further need for acute intervention patient also has had fairly extensive workup Recently with appropriate blood work mild dehydration and rhabdo Last Vital Signs Date Time Temp Pulse Resp B/P (MAP) Pulse Ox O2 Delivery O2 Flow Rate FiO2 04/10/18 01:23 98.2 68 16 138/102 97 Room Air Status: improved Disposition: HOME, SELF-CARE Condition: Improved Referrals: [facility] (PCP) Additional Instructions: Patient is provided with the discharge instructions notified to follow up with primary doctor in the next 2-3 days otherwise return to the er with any worsening symptoms. Please note that this report is being documented using [employer] technology. This can lead to erroneous entry secondary to incorrect interpretation by the dictating instrument. Della Hernandez DO Apr 10, 2018 01:59
[2018-04-10 02:10] VITALS: BP 122/81
--- NOTE | 2018-04-10 02:38 | NUR ---
ED Nurse Note: Patient reports a previous episode of vision changes, no acute s/s seen at this time. patient cleared for discharge. patient verbalized understanding of discharge instructions. patient is ambulatory with steady gait, no acute complaints at this time. patient is a&ox4.
[2018-04-10 02:40] VITALS: BP 122/81
== END 2018-04-10 02:41 | disposition home or self-care (01) ==
LOC: EMR 01:54
DX: G43.909 Migraine, unspecified, not intractable, without status migrainosus (principal); J45.909 Unspecified asthma, uncomplicated; Z88.8 Allergy status to other drugs, medicaments and biological substances; Z85.89 Personal history of malignant neoplasm of other organs and systems
CPT/HCPCS: 99282

== ENCOUNTER 2018-05-12 18:35 | Emergency (ER) | payer MEDICAID ==
[~2018-05-12] VITALS: Ht 167.6 cm; Wt 70.3 kg
[2018-05-12 18:46] VITALS: BP 126/84
--- NOTE | 2018-05-12 18:56 | NUR ---
ED Nurse Note: Pt came in due to sharp, burning mid back pain and lower abd pain x 3 days. Denies dysuria. No fever or chills. Pt is AAO x4, ambulates with steady gait. No respiratory distress.
--- NOTE | 2018-05-12 19:10 | NUR ---
HAND-OFF: Report given to KYMBERLY Salmeron.
--- NOTE | 2018-05-12 19:15 | NUR ---
ED Nurse Note: Received Pt and report from day shift. Knowing Pt needs to collect all the blood and urine sample, will collect as soon.
--- NOTE | 2018-05-12 19:45 | NUR ---
ED Nurse Note: Blood and urine sample sent to lab.
[2018-05-12 20:24] LABS: BASOPHILS % (AUTO) 0.7 % (0.0-2.0); EOSINOPHILS % (AUTO) 0.1 % (0.0-3.0); HEMOGLOBIN 17.1 G/DL (14.2-18.0); LYMPHOCYTES % (AUTO) 15.2 % (20.0-45.0); MEAN CORPUSCULAR VOLUME 94 FL (80-99); MONOCYTES % (AUTO) 5.3 % (1.0-10.0); NEUTROPHILS % (AUTO) 78.7 % (45.0-75.0); PLATELET COUNT 226 K/UL (150-450); RED BLOOD COUNT 5.22 M/UL (4.70-6.10); RED CELL DISTRIBUTION WIDTH 10.8 % (11.6-14.8); WHITE BLOOD COUNT 7.5 K/UL (4.8-10.8)
[2018-05-12 20:25] LABS: APPEARANCE,URINE SLIGHTLY CLOUDY; BILIRUBIN, URINE NEGATIVE (NEGATIVE); COLOR,URINE PALE YELLOW; GLUCOSE, URINE (UA) NEGATIVE (NEGATIVE); KETONES,URINE NEGATIVE (NEGATIVE); LEUKOCYTE ESTERASE ,URINE NEGATIVE (NEGATIVE); NITRITE,URINE NEGATIVE (NEGATIVE); PH,URINE 6.5 (4.5-8.0); PROTEIN,URINE NEGATIVE (NEGATIVE); UROBILINOGEN,URINE NORMAL MG/DL (0.0-1.0)
--- NOTE | 2018-05-12 20:38 | Emergency Room Report ---
History of Present Illness General Chief Complaint: Abdominal Pain Source: Patient Present Illness HPI Patient presents with passing white rubbery material per rectum today. He's had lower back pain and loose stools. He denies any fevers or chills. He had colonoscopy a week ago. His stools returned to normal after the colonoscopy. There is no blood in the stool at this time. Patient complains about nausea but no vomiting. He doesn't have results of his colonoscopy yet. Pain is rated 9/10, constant and somewhat worsened when he moves about, aching. He has some anxiety about his symptoms. The patient's had a history of pancreatitis in the past he's concerned that this might be what going on. The patient's had cracking in his ribs when he takes a deep breath. This is painful to him. He has been seen for costochondritis in the past. The patient is HIV positive and stable on his anti-viral medication. The patient denies any dysuria. Allergies: Coded Allergies: KETOROLAC (Verified Allergy, Severe, 07/18/16) EFAVIRENZ (Verified Allergy, Unknown, 01/08/17) NELFINAVIR (Verified Allergy, Unknown, 01/08/17) NSAIDS (NON-STEROIDAL ANTI-INFLAMMA (Verified Allergy, Unknown, 07/18/16) COPIED FROM UNCODED SECTION Patient History Past Medical History: see triage record, old chart reviewed Social History: Denies: smoking, alcohol use Social History Narrative brought by friend Reviewed Nursing Documentation: PMH: Agreed; PSxH: Agreed Nursing Documentation-PMH Past Medical History: No History, Except For Hx Cardiac Problems: No - HIV Hx Hypertension: No - high cholesterol Hx Pacemaker: No Hx Asthma: Yes Hx COPD: No Hx Diabetes: No Hx Cancer: Yes - Karposis sarcoma [id number] Hx Gastrointestinal Problems: Yes - Gastritis, pancreatitis, fatty liver 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, stage II History Of Psychiatric Problem: Yes - anxiety, depression, panic attack Hx Neurological Problems: No - Rhabdomyolisis 2016 Hx Seizures: No Review of Systems All Other Systems: negative except mentioned in HPI Physical Exam Vital Signs Date Time Temp Pulse Resp B/P (MAP) Pulse Ox O2 Delivery O2 Flow Rate FiO2 05/12/18 18:46 98.4 16 126/84 96 Room Air 05/12/18 18:46 93 Sp02 EP Interpretation: reviewed, normal General Appearance: well appearing, no apparent distress, GCS 15 Head: normocephalic Eyes: bilateral eye normal inspection, bilateral eye PERRL ENT: moist mucus membranes Neck: supple Respiratory: lungs clear, normal breath sounds Cardiovascular #1: regular rate, rhythm Cardiovascular #2: 2+ radial (R) Gastrointestinal: normal inspection, normal bowel sounds, non tender, no mass, non-distended Genitourinary: no CVA tenderness Musculoskeletal: back normal - However reported tenderness, gait/station normal , normal range of motion Neurologic: alert, oriented x3, grossly normal Psychiatric: anxious Skin: normal inspection, warm/dry Medical Decision Making Diagnostic Impression: Primary Impression: Abdominal pain Qualified Codes: R10.9 - Unspecified abdominal pain Additional Impression: Costochondritis ER Course Patient presents with unusual material being passed per rectum and low back pain. Differential includes gastroenteritis, parasites, post-colonoscopy sequela, pancreatitis amongst others. Evaluation will be with labs, EKG and chest and abdominal film. He declines morphine at this time. EKG without injury. Chest x-ray no infiltrates. Abdomen with increased stool load. Labs remarkable for mild LFT elevations and renal insufficiency. These are compared with prior labs and are consistent with prior labs.. Discussed finding with patient. He is improved with IV hydration and treatment. Patient stable for outpatient observation and treatment. Laboratory Tests Test 05/12/18 19:45 White Blood Count 7.5 K/UL (4.8-10.8) Red Blood Count 5.22 M/UL (4.70-6.10) Hemoglobin 17.1 G/DL (14.2-18.0) Hematocrit 49.0 % (42.0-52.0) Mean Corpuscular Volume 94 FL (80-99) Mean Corpuscular Hemoglobin 32.8 PG (27.0-31.0) H Mean Corpuscular Hemoglobin Concent 35.0 G/DL (32.0-36.0) Red Cell Distribution Width 10.8 % (11.6-14.8) L Platelet Count 226 K/UL (150-450) Mean Platelet Volume 7.8 FL (6.5-10.1) Neutrophils (%) (Auto) 78.7 % (45.0-75.0) H Lymphocytes (%) (Auto) 15.2 % (20.0-45.0) L Monocytes (%) (Auto) 5.3 % (1.0-10.0) Eosinophils (%) (Auto) 0.1 % (0.0-3.0) Basophils (%) (Auto) 0.7 % (0.0-2.0) Prothrombin Time 9.9 SEC (9.30-11.50) Prothrombin Time INR 0.9 (0.9-1.1) PTT 28 SEC (23-33) Urine Color Pale yellow Urine Appearance Slightly cloudy Urine pH 6.5 (4.5-8.0) Urine Specific [place] 1.015 (1.005-1.035) Urine Protein Negative (NEGATIVE) Urine Glucose (UA) Negative (NEGATIVE) Urine Ketones Negative (NEGATIVE) Urine Blood Negative (NEGATIVE) Urine Nitrite Negative (NEGATIVE) Urine Bilirubin Negative (NEGATIVE) Urine Urobilinogen Normal MG/DL (0.0-1.0) Urine Leukocyte Esterase Negative (NEGATIVE) Sodium Level 138 MMOL/L (136-145) Potassium Level 3.9 MMOL/L (3.5-5.1) Chloride Level 100 MMOL/L (98-107) Carbon Dioxide Level 28 MMOL/L (21-32) Anion Gap 10 mmol/L (5-15) Blood Urea Nitrogen 9 mg/dL (7-18) Creatinine 1.4 MG/DL (0.55-1.30) H Estimate Glomerular Filtration Rate 53.6 mL/min (>60) Glucose Level 90 MG/DL (74-106) Calcium Level 9.0 MG/DL (8.5-10.1) Total Bilirubin 0.6 MG/DL (0.2-1.0) Aspartate Amino Transferase (AST) 40 U/L (15-37) H Alanine Aminotransferase (ALT) 35 U/L (12-78) Alkaline Phosphatase 135 U/L (46-116) H Total Creatine Kinase 664 U/L (26-308) H Total Protein 8.6 G/DL (6.4-8.2) H Albumin 4.7 G/DL (3.4-5.0) Globulin 3.9 g/dL Albumin/Globulin Ratio 1.2 (1.0-2.7) Lipase 316 U/L (73-393) EKG Diagnostic Results Rate: normal Rhythm: NSR ST Segments: no acute changes Rhythm Strip Diag. Results EP Interpretation: yes Rhythm: NSR, no PVC's, no ectopy Chest X-Ray Diagnostic Results Chest X-Ray Diagnostic Results : Chest X-Ray Ordered: Yes # of Views/Limited/Complete: 1 View Indication: Chest Pain Interpretation: no consolidation, no effusion, no pneumothorax Other X-Ray Diagnostic Results Other X-Ray Diagnostic Results : X-Ray ordered: Abdomen # of Views/Limited Vs Complete: 2 View Indication: Other EP Interpretation: Yes Interpretation: nonspecific bowel gas, no sbo, other - No masses Impression: Other Electronically Signed by: Electronically signed by Corbin Bell MD Last Vital Signs Date Time Temp Pulse Resp B/P (MAP) Pulse Ox O2 Delivery O2 Flow Rate FiO2 05/12/18 22:00 98.5 18 122/80 98 Room Air 05/12/18 18:56 93 Status: improved Disposition: HOME, SELF-CARE Condition: Improved Scripts Acetaminophen (Tylenol) 325 Mg Tablet 650 MG ORAL Q6H PRN for Prn Pain/Headache/Temp > 101, #20 TAB 0 Refills Prov: Corbin Bell MD 05/12/18 Mag Hydrox/Al Hydrox/Simeth (MAALOX MAXIMUM STRENGTH SUSP) 355 Ml Oral.susp 30 ML PO Q6HR, #240 ML Prov: Corbin Bell MD 05/12/18 Corbin Bell MD May 12, 2018 20:38
[2018-05-12 20:46] LABS: ANION GAP 10 mmol/L (5-15); BLOOD UREA NITROGEN 9 mg/dL (7-18); CARBON DIOXIDE 28 MMOL/L (21-32); CHLORIDE 100 MMOL/L (98-107); CREATININE 1.4 MG/DL (0.55-1.30); INR 0.9 (0.9-1.1); POTASSIUM 3.9 MMOL/L (3.5-5.1); SODIUM 138 MMOL/L (136-145)
--- NOTE | 2018-05-12 20:47 | Diagnostic Imaging Report ---
EXAM: XR Abdomen, 2 Views CLINICAL HISTORY: ABD PAIN TECHNIQUE: Frontal view of the abdomen/pelvis with upright view of the abdomen. COMPARISON: No relevant prior studies available. FINDINGS: Intraperitoneal space: No bowel obstruction or free air. Gastrointestinal tract: There is a large amount of stool throughout the colon. Bones/joints: Unremarkable. IMPRESSION: No bowel obstruction or free air. There is a large amount of stool throughout the colon
--- NOTE | 2018-05-12 20:49 | Diagnostic Imaging Report ---
EXAM: XR Chest, 1 View CLINICAL HISTORY: ABD PAIN TECHNIQUE: Frontal view of the chest. COMPARISON: No relevant prior studies available. FINDINGS: Lungs: Unremarkable. No consolidation. Pleural space: Unremarkable. No pneumothorax. Heart: Unremarkable. No cardiomegaly. Mediastinum: Unremarkable. Bones/joints: Mild degenerative changes in the thoracic spine. IMPRESSION: No radiographic evidence of acute cardiopulmonary disease.
[2018-05-12 20:50] LABS: ALANINE AMINOTRANSFERASE 35 U/L (12-78); ALBUMIN 4.7 G/DL (3.4-5.0); ALBUMIN/GLOBULIN RATIO 1.2 (1.0-2.7); ALKALINE PHOSPHATASE 135 U/L (46-116); ASPARTATE AMINO TRANSFERASE 40 U/L (15-37); BILIRUBIN,TOTAL 0.6 MG/DL (0.2-1.0); CREATINE KINASE 664 U/L (26-308)
[2018-05-12] MEDS ORDERED: MAALOX MAXIMUM355 M1 PO (21:54)
[2018-05-12] MEDS ORDERED: TYLENOL325 MG ORAL (21:54)
[2018-05-12 22:00] VITALS: BP 122/80
--- NOTE | 2018-05-12 22:05 | NUR ---
ER DISCHARGE NOTE: Patient is cleared to be discharged per ERMD, pt is aox4, on room air, with stable vital signs. pt was given dc and prescription instructions, pt was able to verbalize understanding, pt id band and iv site removed without complications. pt is able to ambulate with steady gait. pt took all belongings.
--- NOTE | 2018-05-15 15:36 | Cardiology Report ---
APPROVED REPORT EKG Measurement Heart [id number] Normal sinus rhythm Possible Left atrial enlargement Borderline ECG
== END 2018-05-12 22:05 | disposition home or self-care (01) ==
LOC: EMR 19:25
DX: R10.9 Unspecified abdominal pain (principal); M94.0 Chondrocostal junction syndrome [Tietze]; M54.5 Low back pain
CPT/HCPCS: 36415; 71045; 74018; 80053; 81003; 82550; 83690; 85025; 85610; 85730; 93005; 99284

== ENCOUNTER 2018-10-06 21:21 | Emergency (ER) | payer MEDICAID ==
[~2018-10-06] VITALS: Ht 167.6 cm; Wt 74.8 kg
[~2018-10-06 21:21] MED LIST changes: +MAALOX MAXIMUM355 M1 PO; +TYLENOL325 MG ORAL
--- NOTE | 2018-10-06 21:35 | NUR ---
ED Nurse Note: PT WALKED IN C/O PRESSURE AND PAIN ON NASAL AREA, SWEATING, AND DIZZINESS SINCE MON, PT REPORTS HE TAKES DOXYCYCLINE BUT HASN'T BEEN GETTING BETTER. airway intact, resp even and unlabored on RA, will cont monitor.
[2018-10-06 21:40] VITALS: BP 122/81
[2018-10-06] MEDS ORDERED: CLINDAMYCIN HC300 MG ORAL (21:50)
--- NOTE | 2018-10-06 21:51 | Emergency Room Report ---
History of Present Illness General Chief Complaint: Pain Source: Patient Present Illness HPI This is a 53-year-old male with a history of HIV with well-controlled on medication. His CD4 count is 800 and viral load is undetectable. Resents with chief complaint of a sinus infection. He has sinus pain on the right maxillary area for the last week. He is on doxycycline for the last 4 days. Not improving. Has greenish mucus. [id number] medication not helping. Similar symptom in the past. He has a deviated septum and was recommended by ENT to have surgery. Patient complained of headache and dizziness. No nausea no vomiting. Worse with certain movement of the head. No neck pain. Allergies: Coded Allergies: KETOROLAC (Verified Allergy, Severe, 07/18/16) EFAVIRENZ (Verified Allergy, Unknown, 01/08/17) NELFINAVIR (Verified Allergy, Unknown, 01/08/17) NSAIDS (NON-STEROIDAL ANTI-INFLAMMA (Verified Allergy, Unknown, 07/18/16) COPIED FROM UNCODED SECTION Patient History Past Medical History: see triage record, old chart reviewed, HIV Past Surgical History: none Pertinent Family History: none Social History: Denies: smoking Immunizations: other Reviewed Nursing Documentation: PMH: Agreed; PSxH: Agreed Nursing Documentation-PMH Past Medical History: No History, Except For Hx Cardiac Problems: No - HIV Hx Hypertension: No - high cholesterol Hx Pacemaker: No Hx Asthma: Yes Hx COPD: No Hx Diabetes: No Hx Cancer: Yes - Karposis sarcoma [id number] Hx Gastrointestinal Problems: Yes - Gastritis, pancreatitis, fatty liver 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, stage II Hx Neurological Problems: No - Rhabdomyolisis 2016 Hx Seizures: No Review of Systems Eye: Denies: eye pain, blurred vision ENT: Denies: ear pain, nose congestion, throat swelling Respiratory: Denies: cough, shortness of breath Cardiovascular: Denies: chest pain, palpitations Gastrointestinal: Denies: abdominal pain, diarrhea, nausea, vomiting Musculoskeletal: Denies: back pain, joint pain Skin: Denies: rash Neurological: Denies: headache, numbness Endocrine: Denies: increased thirst, increased urine Hematologic/Lymphatic: Denies: easy bruising All Other Systems: negative except mentioned in HPI Physical Exam Vital Signs Date Time Temp Pulse Resp B/P (MAP) Pulse Ox O2 Delivery O2 Flow Rate FiO2 10/06/18 21:35 98.1 77 18 122/81 (95) 93 Room Air Vitals normal Sp02 EP Interpretation: reviewed, normal General Appearance: well appearing, no apparent distress, alert Head: normocephalic, atraumatic Eyes: bilateral eye PERRL, bilateral eye EOMI ENT: hearing grossly normal, normal pharynx, other - Maxillary sinus tenderness on right Neck: full range of motion, supple, no meningismus Respiratory: chest non-tender, lungs clear, normal breath sounds Cardiovascular #1: regular rate, rhythm, no murmur Gastrointestinal: normal bowel sounds, non tender, no mass, no organomegaly, no bruit, non-distended Musculoskeletal: back normal, gait/station normal, normal range of motion Psychiatric: mood/affect normal Medical Decision Making Diagnostic Impression: Primary Impression: Sinusitis, acute maxillary Qualified Codes: J01.00 - Acute maxillary sinusitis, unspecified ER Course Patient presents with sinusitis. No evidence of any sepsis or meningitis. Will discharge home. Last Vital Signs Date Time Temp Pulse Resp B/P (MAP) Pulse Ox O2 Delivery O2 Flow Rate FiO2 10/06/18 21:35 98.1 77 18 122/81 (95) 93 Room Air Status: unchanged Disposition: HOME, SELF-CARE Condition: Stable Scripts Clindamycin Hcl (CLINDAMYCIN HCL) 300 Mg Capsule 300 MG ORAL THREE TIMES A DAY, #42 CAP Prov: Jonnie Yip MD 10/06/18 Additional Instructions: Follow-up with your doctor in 7 days if not better. Return if symptoms worsen. Jonnie Yip MD Oct 06, 2018 21:51
[2018-10-06 22:01] VITALS: BP 121/80
--- NOTE | 2018-10-06 22:01 | NUR ---
ED Nurse Note: pt cleared to be d/c per ER provider, pt discharge and aftercare instruction provided w/ prescription, pt education done via discussion and handout, pt advised to follow up with pcp or return to ed if changes in condition, vss, ambulatory w/ steady gait, left w/ all belongings.
== END 2018-10-06 22:01 | disposition home or self-care (01) ==
LOC: EMR 21:56
DX: J01.00 Acute maxillary sinusitis, unspecified (principal); B20 Human immunodeficiency virus [HIV] disease; E78.00 Pure hypercholesterolemia, unspecified; Z85.9 Personal history of malignant neoplasm, unspecified; N18.2 Chronic kidney disease, stage 2 (mild); Z88.8 Allergy status to other drugs, medicaments and biological substances
CPT/HCPCS: 99282

== ENCOUNTER 2018-12-15 20:43 | Emergency (ER) | payer MEDICAID ==
[~2018-12-15] VITALS: Ht 167.6 cm; Wt 70.3 kg
[~2018-12-15 20:43] MED LIST changes: +CLINDAMYCIN HC300 MG ORAL
[2018-12-15 20:49] VITALS: BP 132/84
--- NOTE | 2018-12-15 20:49 | NUR ---
ED Nurse Note: Pt walked in to ER c/o generalized body aches with nausea and dizziness x 2 days. Pt rates pain at 10/10. Pt reports taking ASA X 1 hour ago. Pt is A&O x4, V/S stable with no s/s of acute distress noted at this time. ERMD at bedside evaluating the pt.
--- NOTE | 2018-12-15 21:07 | Emergency Room Report ---
History of Present Illness General Chief Complaint: Pain Source: Patient Present Illness HPI Is a 53-year-old male with a history of HIV. He also said he has a history of rhabdomyolysis which he claimed caused by a shot of Toradol. He presents with chief complaint of body pain. Onset today. Pain is diffuse in nature. He thinks that he may have rhabdomyolysis again. He denies any drug use. Denies any recent strenuous activity. Nothing made it better. Nothing made it worse or denies any other complaint. Allergies: Coded Allergies: KETOROLAC (Verified Allergy, Severe, 07/18/16) EFAVIRENZ (Verified Allergy, Unknown, 01/08/17) NELFINAVIR (Verified Allergy, Unknown, 01/08/17) NSAIDS (NON-STEROIDAL ANTI-INFLAMMA (Verified Allergy, Unknown, 07/18/16) COPIED FROM UNCODED SECTION Patient History Past Medical History: see triage record, old chart reviewed, HIV Past Surgical History: none Pertinent Family History: none Social History: Denies: smoking Immunizations: other Reviewed Nursing Documentation: PMH: Agreed; PSxH: Agreed Nursing Documentation-PMH Past Medical History: No History, Except For Hx Asthma: Yes Hx COPD: No Hx Diabetes: No Hx Cancer: Yes - Karposis sarcoma [id number] Hx Gastrointestinal Problems: Yes - Gastritis, pancreatitis, fatty liver 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, stage II Hx Neurological Problems: No - Rhabdomyolisis 2016 Hx Seizures: No Review of Systems Eye: Denies: eye pain, blurred vision ENT: Denies: ear pain, nose congestion, throat swelling Respiratory: Denies: cough, shortness of breath Cardiovascular: Denies: chest pain, palpitations Gastrointestinal: Denies: abdominal pain, diarrhea, nausea, vomiting Musculoskeletal: Denies: back pain, joint pain Skin: Denies: rash Neurological: Denies: headache, numbness Endocrine: Denies: increased thirst, increased urine Hematologic/Lymphatic: Denies: easy bruising All Other Systems: negative except mentioned in HPI Physical Exam Vital Signs Date Time Temp Pulse Resp B/P (MAP) Pulse Ox O2 Delivery O2 Flow Rate FiO2 12/15/18 20:45 98.4 72 16 132/84 (100) 96 Room Air vitals normal Sp02 EP Interpretation: reviewed, normal General Appearance: well appearing, no apparent distress, alert Head: normocephalic, atraumatic Eyes: bilateral eye PERRL, bilateral eye EOMI ENT: hearing grossly normal, normal pharynx Neck: full range of motion, supple, no meningismus Respiratory: chest non-tender, lungs clear, normal breath sounds Cardiovascular #1: regular rate, rhythm, no murmur Gastrointestinal: normal bowel sounds, non tender, no mass, no organomegaly, no bruit, non-distended Musculoskeletal: back normal, gait/station normal, normal range of motion Psychiatric: mood/affect normal Medical Decision Making Diagnostic Impression: Primary Impression: Myalgia Additional Impression: Anxiety ER Course Patient presents with myalgia. No evidence of any rhabdomyolysis. Creatinines with a slight bump from 1.4-1.5. No evidence of any infection. Patient reassured and will be discharged home. Last Vital Signs Date Time Temp Pulse Resp B/P (MAP) Pulse Ox O2 Delivery O2 Flow Rate FiO2 12/15/18 20:45 98.4 72 16 132/84 (100) 96 Room Air Status: improved Disposition: HOME, SELF-CARE Condition: Stable Additional Instructions: Follow-up with your doctor in 7 days. Return if symptoms worsen. Jonnie Yip MD Dec 15, 2018 21:07
--- NOTE | 2018-12-15 21:17 | NUR ---
ED Nurse Note: Urine and Blood sent down to the lab.
[2018-12-15 21:33] LABS: BASOPHILS % (AUTO) 0.9 % (0.0-2.0); EOSINOPHILS % (AUTO) 1.3 % (0.0-3.0); HEMATOCRIT 50.5 % (42.0-52.0); HEMOGLOBIN 17.5 G/DL (14.2-18.0); MEAN CORPUSCULAR VOLUME 92 FL (80-99); MONOCYTES % (AUTO) 9.7 % (1.0-10.0); NEUTROPHILS % (AUTO) 46.1 % (45.0-75.0); PLATELET COUNT 263 K/UL (150-450); RED BLOOD COUNT 5.51 M/UL (4.70-6.10); RED CELL DISTRIBUTION WIDTH 11.4 % (11.6-14.8); WHITE BLOOD COUNT 6.3 K/UL (4.8-10.8)
[2018-12-15 21:35] LABS: APPEARANCE,URINE CLEAR; BILIRUBIN, URINE NEGATIVE (NEGATIVE); COLOR,URINE PALE YELLOW; GLUCOSE, URINE (UA) NEGATIVE (NEGATIVE); KETONES,URINE NEGATIVE (NEGATIVE); LEUKOCYTE ESTERASE ,URINE NEGATIVE (NEGATIVE); NITRITE,URINE NEGATIVE (NEGATIVE); PH,URINE 6.5 (4.5-8.0); PROTEIN,URINE NEGATIVE (NEGATIVE); UROBILINOGEN,URINE NORMAL MG/DL (0.0-1.0)
[2018-12-15 21:48] LABS: ANION GAP 8 mmol/L (5-15); BLOOD UREA NITROGEN 20 mg/dL (7-18); CALCIUM 9.1 MG/DL (8.5-10.1); CARBON DIOXIDE 26 MMOL/L (21-32); CHLORIDE 104 MMOL/L (98-107); CREATININE 1.5 MG/DL (0.55-1.30); POTASSIUM 4.1 MMOL/L (3.5-5.1); SODIUM 138 MMOL/L (136-145)
[2018-12-15 22:04] LABS: CKMB 3.4 NG/ML (0.0-3.6); CREATINE KINASE 377 U/L (26-308)
[2018-12-15 22:49] VITALS: BP 129/79
[2018-12-15 23:08] VITALS: BP 131/71
== END 2018-12-15 23:12 | disposition home or self-care (01) ==
LOC: EMR 21:05
DX: M79.10 Myalgia, unspecified site (principal); F41.9 Anxiety disorder, unspecified; B20 Human immunodeficiency virus [HIV] disease; Z88.8 Allergy status to other drugs, medicaments and biological substances; Z88.6 Allergy status to analgesic agent; Z85.89 Personal history of malignant neoplasm of other organs and systems; N18.2 Chronic kidney disease, stage 2 (mild)
CPT/HCPCS: 36415; 80048; 80307; 81001; 82550; 82553; 85025; 96360; Z7502; 99284

== ENCOUNTER 2019-05-10 11:24 | Emergency (ER) | payer MEDICAID ==
[~2019-05-10] VITALS: Ht 167.6 cm; Wt 70.3 kg
--- NOTE | 2019-05-10 11:35 | NUR ---
ED Nurse Note: pt ambulated to ER due to persistent cough with yellow phlegm, fever and left upper abdominal pain "feels like something stuck there" x 12 days; symptoms improved after taking antibiotics; patient has been taking since 05/02/19. Placed on bed; will continue to monitor.
[2019-05-10] MEDS ORDERED: Albuterol/Ipratropium 3ml neb HHN ONE (12:00)
[2019-05-10] MEDS ORDERED: Lidocaine 2% Visc 15ml soln ORAL ONE (12:00)
[2019-05-10] MEDS ORDERED: Dicyclomine HCl 10mg/5ml oral soln ORAL ONE (12:00)
[2019-05-10] MEDS ORDERED: Omnipaque-300 100ml vial INJ PRN (12:00)
[2019-05-10] MEDS ORDERED: Mylanta II UD 30ml ORAL ONE (12:00)
[2019-05-10] MEDS ORDERED: Morphine Sulfate 4mg/ml Inj (IV USE ONLY) IVP ONE (12:00)
--- NOTE | 2019-05-10 12:08 | NUR ---
ED Nurse Note: Pt preffered tylenol for pain management, informed Dr. Yee. Blood and urine specimen sent to labs.
[2019-05-10 12:10] VITALS: BP 119/78
--- NOTE | 2019-05-10 12:12 | NUR ---
ED Nurse Note: RT on bedside.
[2019-05-10] MEDS ORDERED: Acetaminophen 500mg (ES) tab ORAL ONE (12:15)
--- NOTE | 2019-05-10 12:19 | NUR ---
ED Nurse Note: Xray on bedside, done.
[2019-05-10 12:27] LABS: BASOPHILS % (AUTO) 0.6 % (0.0-2.0); HEMATOCRIT 47.8 % (42.0-52.0); HEMOGLOBIN 16.6 G/DL (14.2-18.0); LYMPHOCYTES % (AUTO) 37.1 % (20.0-45.0); MEAN CORPUSCULAR VOLUME 91 FL (80-99); MONOCYTES % (AUTO) 8.9 % (1.0-10.0); NEUTROPHILS % (AUTO) 52.4 % (45.0-75.0); PLATELET COUNT 302 K/UL (150-450); RED BLOOD COUNT 5.27 M/UL (4.70-6.10); RED CELL DISTRIBUTION WIDTH 11.3 % (11.6-14.8); WHITE BLOOD COUNT 5.1 K/UL (4.8-10.8)
[2019-05-10 12:29] LABS: APPEARANCE,URINE CLEAR; BILIRUBIN, URINE NEGATIVE (NEGATIVE); COLOR,URINE YELLOW; GLUCOSE, URINE (UA) NEGATIVE (NEGATIVE); KETONES,URINE NEGATIVE (NEGATIVE); LEUKOCYTE ESTERASE ,URINE NEGATIVE (NEGATIVE); NITRITE,URINE NEGATIVE (NEGATIVE); PH,URINE 5 (4.5-8.0); PROTEIN,URINE NEGATIVE (NEGATIVE); UROBILINOGEN,URINE NORMAL MG/DL (0.0-1.0)
[2019-05-10 12:30] LABS: ANION GAP 6 mmol/L (5-15); BLOOD UREA NITROGEN 14 mg/dL (7-18); CALCIUM 9.2 MG/DL (8.5-10.1); CARBON DIOXIDE 30 MMOL/L (21-32); CHLORIDE 106 MMOL/L (98-107); CREATININE 1.3 MG/DL (0.55-1.30); POTASSIUM 4.4 MMOL/L (3.5-5.1); SODIUM 142 MMOL/L (136-145)
[2019-05-10 12:41] LABS: ALANINE AMINOTRANSFERASE 48 U/L (12-78); ALBUMIN 3.9 G/DL (3.4-5.0); ALBUMIN/GLOBULIN RATIO 0.9 (1.0-2.7); ALKALINE PHOSPHATASE 121 U/L (46-116); ASPARTATE AMINO TRANSFERASE 36 U/L (15-37); BILIRUBIN,TOTAL 0.3 MG/DL (0.2-1.0)
--- NOTE | 2019-05-10 12:46 | NUR ---
ED Nurse Note: Pt went on CT via wheelchair accompanied by tech.
--- NOTE | 2019-05-10 13:04 | Diagnostic Imaging Report ---
Indication: Cough Comparison: 05/12/2018 A single view chest radiograph was obtained. Findings: Cardiomediastinal appearance is within normal limits for age. The lungs are clear. Pulmonary vascularity is appropriate. The diaphragmatic contour is smooth and costophrenic angles are sharp. No pleural effusions are identified. The bones are unremarkable. Impression: No acute findings
--- NOTE | 2019-05-10 13:18 | Diagnostic Imaging Report ---
INDICATION: Abdominal pain TECHNIQUE: Continuous helical transaxial imaging of the abdomen and pelvis was obtained from the lung bases to the pubic symphysis during intravenous contrast administration. Coronal 2-D reformats were also obtained. Study obtained in a Siemens sensation [address] Automatic Exposure Control was utilized. Total Dose length Product (DLP): [address] Dose Index Volume (CTDIvol): 4.4 mGy COMPARISON: None FINDINGS: Lungs: There is a focus of calcification at the left lung base consistent with calcified granuloma. No consolidative opacity is seen. The lung bases are clear otherwise.. Liver: The liver may be slightly hypodense consistent with fatty infiltration but is otherwise unremarkable. Gallbladder/biliary system: No gallstones are identified. There is no evidence of intrahepatic or extrahepatic biliary ductal dilatation. Spleen: Unremarkable Pancreas: Unremarkable Kidneys/Bladder: There is a 1 cm cyst in the left kidney. Both kidneys enhance normally. There is no hydronephrosis appreciated. Urinary bladder is unremarkable.. Adrenal glands: Unremarkable Aorta/IVC: Mild calcification of the distal abdominal aorta and iliac arteries noted consistent with atherosclerotic disease. There is no aneurysm. Bowel: There is no evidence of bowel obstruction. The appendix is not definitely seen. There are no secondary signs of acute appendicitis. Peritoneum: There is no free fluid. Bones: Vacuum phenomenon narrowing of L5-S1 disc demonstrated. Facet arthropathy at L4-5 and L5-S1 noted. IMPRESSION: No acute findings. Atherosclerotic vascular disease. Mild fatty liver. Calcified granuloma left lung base. Other incidental findings as above The CT scanner at [facility] is accredited by the [employer] and the scans are performed using dose optimization techniques as appropriate to a performed exam including Automatic Exposure control.
--- NOTE | 2019-05-10 13:20 | NUR ---
ED Nurse Note: Pt verbalized, "They did CT with contrast in me, can you remove it from my system by flushing?" Informed Dr. Yee regarding pt's request, Dr. Yee confirmed to give 1 liter of NS. Administered on IV site; patent and infusing well.
[2019-05-10] MEDS ORDERED: COLACE100 MG ORAL ×2 (14:09)
[2019-05-10 14:23] VITALS: BP 119/78
--- NOTE | 2019-05-11 21:32 | Emergency Room Report ---
History of Present Illness General Chief Complaint: Upper Respiratory Illness Source: Patient, Medical Record Present Illness HPI 53-year-old male presents ED for evaluation. Complaining of abdominal pain x3 days. Sharp, left-sided, 9 out of 10, nonradiating. Also notes multiple episodes of diarrhea. Denies fevers or chills. States he has been coughing with yellowish phlegm. Was prescribed antibiotics by his PMD. Currently on day 6. States overall improved but symptoms persist. No other aggravating relieving factors. Denies any other associated symptoms Allergies: Coded Allergies: KETOROLAC (Verified Allergy, Severe, 07/18/16) EFAVIRENZ (Verified Allergy, Unknown, 01/08/17) NELFINAVIR (Verified Allergy, Unknown, 01/08/17) NSAIDS (NON-STEROIDAL ANTI-INFLAMMA (Verified Allergy, Unknown, 07/18/16) COPIED FROM UNCODED SECTION Patient History Past Medical History: asthma, psych hx, HIV Past Surgical History: none Pertinent Family History: none Social History: Denies: smoking, alcohol use, drug use Immunizations: UTD Reviewed Nursing Documentation: PMH: Agreed; PSxH: Agreed Nursing Documentation-PMH Past Medical History: No History, Except For Hx Cardiac Problems: No - HIV +, RHABDOMOYSIS, Hx Hypertension: No Hx Pacemaker: No Hx Asthma: Yes Hx COPD: No Hx Diabetes: No Hx Cancer: Yes - Karposis sarcoma 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 Hx Gastrointestinal Problems: Yes - Gastritis, pancreatitis, fatty liver 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, stage II History Of Psychiatric Problem: Yes - anixety, depression Hx Neurological Problems: No Hx Cerebrovascular Accident: Yes Hx Seizures: No Review of Systems All Other Systems: negative except mentioned in HPI Physical Exam Vital Signs Date Time Temp Pulse Resp B/P (MAP) Pulse Ox O2 Delivery O2 Flow Rate FiO2 05/10/19 11:32 98.8 70 14 119/78 (92) 99 Room Air 05/10/19 12:17 21 Sp02 EP Interpretation: reviewed, normal General Appearance: no apparent distress, alert, GCS 15, non-toxic Head: normocephalic, atraumatic Eyes: bilateral eye normal inspection, bilateral eye PERRL ENT: hearing grossly normal, normal pharynx, no angioedema, normal voice Neck: full range of motion, supple/symm/no masses Respiratory: chest non-tender, speaking full sentences, wheezing Cardiovascular #1: regular rate, rhythm, no edema Cardiovascular #2: 2+ carotid (R), 2+ carotid (L), 2+ radial (R), 2+ radial (L) , 2+ dorsalis pedis (R), 2+ dorsalis pedis (L) Gastrointestinal: normal bowel sounds, soft, non-distended, no guarding, no rebound, tenderness - LUQ Rectal: deferred Genitourinary: normal inspection, no CVA tenderness Musculoskeletal: back normal, normal range of motion, gait/station normal, non- tender Neurologic: alert, motor strength/tone normal, oriented x3, sensory intact, responsive, speech normal Psychiatric: judgement/insight normal, memory normal, mood/affect normal, no suicidal/homicidal ideation Reflexes: 3+ bicep (R), 3+ bicep (L), 3+ tricep (R), 3+ tricep (L), 3+ knee (R) , 3+ knee (L) Skin: no rash Lymphatic: no adenopathy Medical Decision Making Diagnostic Impression: Primary Impression: Constipation Qualified Codes: K59.00 - Constipation, unspecified Additional Impression: Bronchitis ER Course Hospital Course 53-year-old M presents to ED with abdominal pain. cough, wheezing Differential diagnosis includes-appendicitis, cholecystitis, small bowel obstruction, gastritis, Clinical course Patient placed on stretcher. After initial history and physical I ordered labs , IV fluids, pain medications, nebs, CXR and CT scan Labs - no leukocytosis, electrolytes ok, LFTs normal CXR - no focal consolidation or infiltrate CT scan shows no acute pathology however significant fecal impaction I discussed findings with patient. Reassurance given. Labs unremarkable. Vitals stable. No pneumonia on x-ray. CT shows constipation Patient will complete his antibiotic prescription as prescribed. Will add stool softeners. Safe for discharge for close outpatient follow-up. States he has a PMD I feel this is a highly complex case requiring extensive working including EKG/ Rhythm strip, Xray/CT/US, Blood/urine lab work, repeat exams while in ED, and administration of strong opiates/narcotics for pain control, admission to hospital or close patient follow up. Diagnosis - constipation, bronchitis Stable and discharged to home with Rx Colace. Followup with PMD. Return to ED if symptoms recur or worsen Labs Test 05/10/19 12:03 White Blood Count 5.1 K/UL (4.8-10.8) Red Blood Count 5.27 M/UL (4.70-6.10) Hemoglobin 16.6 G/DL (14.2-18.0) Hematocrit 47.8 % (42.0-52.0) Mean Corpuscular Volume 91 FL (80-99) Mean Corpuscular Hemoglobin 31.5 PG (27.0-31.0) Mean Corpuscular Hemoglobin Concent 34.7 G/DL (32.0-36.0) Red Cell Distribution Width 11.3 % (11.6-14.8) Platelet Count 302 K/UL (150-450) Mean Platelet Volume 6.8 FL (6.5-10.1) Neutrophils (%) (Auto) 52.4 % (45.0-75.0) Lymphocytes (%) (Auto) 37.1 % (20.0-45.0) Monocytes (%) (Auto) 8.9 % (1.0-10.0) Eosinophils (%) (Auto) 1.0 % (0.0-3.0) Basophils (%) (Auto) 0.6 % (0.0-2.0) Urine Color Yellow Urine Appearance Clear Urine pH 5 (4.5-8.0) Urine Specific Mcpherson 1.020 (1.005-1.035) Urine Protein Negative (NEGATIVE) Urine Glucose (UA) Negative (NEGATIVE) Urine Ketones Negative (NEGATIVE) Urine Blood Negative (NEGATIVE) Urine Nitrite Negative (NEGATIVE) Urine Bilirubin Negative (NEGATIVE) Urine Urobilinogen Normal MG/DL (0.0-1.0) Urine Leukocyte Esterase Negative (NEGATIVE) Sodium Level 142 MMOL/L (136-145) Potassium Level 4.4 MMOL/L (3.5-5.1) Chloride Level 106 MMOL/L (98-107) Carbon Dioxide Level 30 MMOL/L (21-32) Anion Gap 6 mmol/L (5-15) Blood Urea Nitrogen 14 mg/dL (7-18) Creatinine 1.3 MG/DL (0.55-1.30) Estimat Glomerular Filtration Rate > 60 mL/min (>60) Glucose Level 94 MG/DL (74-106) Calcium Level 9.2 MG/DL (8.5-10.1) Total Bilirubin 0.3 MG/DL (0.2-1.0) Aspartate Amino Transf (AST/SGOT) 36 U/L (15-37) Alanine Aminotransferase (ALT/SGPT) 48 U/L (12-78) Alkaline Phosphatase 121 U/L (46-116) Total Protein 8.1 G/DL (6.4-8.2) Albumin 3.9 G/DL (3.4-5.0) Globulin 4.2 g/dL Albumin/Globulin Ratio 0.9 (1.0-2.7) Lipase 279 U/L (73-393) Chest X-Ray Diagnostic Results Chest X-Ray Diagnostic Results : Chest X-Ray Ordered: Yes # of Views/Limited/Complete: 1 View Indication: Shortness of Breath EP Interpretation: Yes Interpretation: no consolidation, no effusion, no pneumothorax, no acute cardiopulmonary disease Impression: No acute disease Electronically Signed by: Electronically signed by Dwight Yee MD CT/MRI/US Diagnostic Results CT/MRI/US Diagnostic Results : Imaging Test Ordered: CT A/P Impression FINDINGS: Lungs: There is a focus of calcification at the left lung base consistent with calcified granuloma. No consolidative opacity is seen. The lung bases are clear otherwise.. Liver: The liver may be slightly hypodense consistent with fatty infiltration but is otherwise unremarkable. Gallbladder/biliary system: No gallstones are identified. There is no evidence of intrahepatic or extrahepatic biliary ductal dilatation. Spleen: Unremarkable Pancreas: Unremarkable Kidneys/Bladder: There is a 1 cm cyst in the left kidney. Both kidneys enhance normally. There is no hydronephrosis appreciated. Urinary bladder is unremarkable.. Adrenal glands: Unremarkable Aorta/IVC: Mild calcification of the distal abdominal aorta and iliac arteries noted consistent with atherosclerotic disease. There is no aneurysm. Bowel: There is no evidence of bowel obstruction. The appendix is not definitely seen. There are no secondary signs of acute appendicitis. Peritoneum: There is no free fluid. Bones: Vacuum phenomenon narrowing of L5-S1 disc demonstrated. Facet arthropathy at L4-5 and L5-S1 noted. Last Vital Signs Date Time Temp Pulse Resp B/P (MAP) Pulse Ox O2 Delivery O2 Flow Rate FiO2 05/10/19 14:23 98.8 71 20 119/78 100 Room Air 21 Status: improved Disposition: HOME, SELF-CARE Condition: Stable Scripts Docusate Sodium* (COLACE*) 100 Mg Capsule 100 MG ORAL DAILY, #30 CAP Prov: Dwight Yee MD 05/10/19 Patient Instructions: Constipation, Adult, [id number] Dwight Yee MD May 11, 2019 21:32
== END 2019-05-10 14:23 | disposition home or self-care (01) ==
LOC: EMR 12:56
DX: K59.00 Constipation, unspecified (principal); J20.9 Acute bronchitis, unspecified; B20 Human immunodeficiency virus [HIV] disease; F41.9 Anxiety disorder, unspecified; F32.9 Major depressive disorder, single episode, unspecified; Z86.73 Personal history of transient ischemic attack (TIA), and cerebral infarction without residual deficits; Z88.8 Allergy status to other drugs, medicaments and biological substances; N28.1 Cyst of kidney, acquired
CPT/HCPCS: 36415; 71045; 74177; 80053; 81003; 83690; 85025; 96374; Q9967; Z7502; 99284; J7620

== ENCOUNTER 2019-05-21 19:21 | Emergency (ER) | payer MEDICAID ==
[~2019-05-21] VITALS: Ht 167.6 cm; Wt 72.6 kg
[~2019-05-21 19:21] MED LIST changes: +COLACE100 MG ORAL
--- NOTE | 2019-05-21 19:32 | NUR ---
ED Nurse Note: PT WALKED TO ED C/O ABD PAIN 11/03, DENIES NV, STATES DIARRHEA X2 THIS MORNING. CURRENTLY ON FLAGYL FOR DIVERTICULITIS. PT DOES NOT PRESENT WITH FEVER, VSS, NAD.
--- NOTE | 2019-05-21 19:43 | Emergency Room Report ---
History of Present Illness General Chief Complaint: Abdominal Pain Source: Patient Present Illness HPI Patient presents with complaints of diffuse abdominal cramping Also localizing to the Left upper quadrant Patient reports that initially he started with a bronchitis was put on doxycycline for 10 days This was changed recently patient saw his primary physician on the And it was felt that he had possible colitis he has had diverticulitis in the past And has been put on Flagyl Denies any chest pain or shortness of breath denies any vomiting denies any dysuria frequency abdominal pain is also associated with several episodes of diarrhea over the past several days Allergies: Coded Allergies: KETOROLAC (Verified Allergy, Severe, 07/18/16) PENICILLINS (Verified Allergy, Severe, Hives, 05/22/19) EFAVIRENZ (Verified Allergy, Unknown, 01/08/17) NELFINAVIR (Verified Allergy, Unknown, 01/08/17) NSAIDS (NON-STEROIDAL ANTI-INFLAMMA (Verified Allergy, Unknown, 07/18/16) COPIED FROM UNCODED SECTION Patient History Past Medical History: see triage record Reviewed Nursing Documentation: PMH: Agreed; PSxH: Agreed Nursing Documentation-PMH Past Medical History: No History, Except For Hx Cardiac Problems: No - HIV +, RHABDOMOYSIS, Hx Hypertension: No Hx Pacemaker: No Hx Asthma: Yes Hx COPD: No Hx Diabetes: No Hx Cancer: Yes - Karposis sarcoma [id number] Hx Gastrointestinal Problems: Yes - Gastritis, pancreatitis, fatty liver 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, stage II Hx Neurological Problems: No Hx Cerebrovascular Accident: Yes Hx Seizures: No Review of Systems All Other Systems: negative except mentioned in HPI Physical Exam Vital Signs Date Time Temp Pulse Resp B/P (MAP) Pulse Ox O2 Delivery O2 Flow Rate FiO2 05/21/19 19:24 99.0 82 20 143/90 (107) 97 Room Air Sp02 EP Interpretation: reviewed, normal General Appearance: well appearing, no apparent distress Head: normocephalic, atraumatic Eyes: bilateral eye PERRL, bilateral eye EOMI ENT: hearing grossly normal, normal pharynx, TMs + canals normal, uvula midline Neck: full range of motion, supple, no meningismus, no bony tend Respiratory: lungs clear, normal breath sounds, no rhonchi, no respiratory distress, no retraction, no accessory muscle use Cardiovascular #1: normal peripheral pulses, regular rate, rhythm, no edema, no gallop, no JVD, no murmur Gastrointestinal: normal bowel sounds, non tender - On palpation however subjectively points to the left upper quadrant and left lower quadrant, soft, no mass, no organomegaly, non-distended, no guarding, no hernia, no pulsatile mass, no rebound Genitourinary: no CVA tenderness Musculoskeletal: normal inspection Neurologic: motor strength/tone normal, radiologist diagnostic III-XII nml as tested, oriented x3 , sensory intact, responsive Psychiatric: mood/affect normal Skin: no rash Lymphatic: normal inspection, no adenopathy Medical Decision Making Diagnostic Impression: Primary Impression: Abdominal pain ER Course With the history exam and presentation, multiple differentials considered, including but not limited to appendicitis, gastritis, cholecystitis, diverticulitis Patient also reporting that he has had rhabdomyolysis in the past and would like his CK checked Patient's last CK was 500 which reported from his primary doctor's office it has decreased appropriately Patient's blood work also appropriate abdomen remains soft After further discussion patient feels well going home and following closely with primary physician Labs Test 05/21/19 19:57 White Blood Count 4.7 K/UL (4.8-10.8) Red Blood Count 5.10 M/UL (4.70-6.10) Hemoglobin 16.0 G/DL (14.2-18.0) Hematocrit 46.8 % (42.0-52.0) Mean Corpuscular Volume 92 FL (80-99) Mean Corpuscular Hemoglobin 31.3 PG (27.0-31.0) Mean Corpuscular Hemoglobin Concent 34.1 G/DL (32.0-36.0) Red Cell Distribution Width 12.0 % (11.6-14.8) Platelet Count 303 K/UL (150-450) Mean Platelet Volume 7.1 FL (6.5-10.1) Neutrophils (%) (Auto) 54.0 % (45.0-75.0) Lymphocytes (%) (Auto) 32.7 % (20.0-45.0) Monocytes (%) (Auto) 10.8 % (1.0-10.0) Eosinophils (%) (Auto) 1.4 % (0.0-3.0) Basophils (%) (Auto) 1.2 % (0.0-2.0) Sodium Level 143 MMOL/L (136-145) Potassium Level 4.3 MMOL/L (3.5-5.1) Chloride Level 104 MMOL/L (98-107) Carbon Dioxide Level 30 MMOL/L (21-32) Anion Gap 9 mmol/L (5-15) Blood Urea Nitrogen 9 mg/dL (7-18) Creatinine 1.3 MG/DL (0.55-1.30) Estimat Glomerular Filtration Rate 58.2 mL/min (>60) Glucose Level 108 MG/DL (74-106) Calcium Level 9.4 MG/DL (8.5-10.1) Total Bilirubin 0.2 MG/DL (0.2-1.0) Aspartate Amino Transf (AST/SGOT) 46 U/L (15-37) Alanine Aminotransferase (ALT/SGPT) 55 U/L (12-78) Alkaline Phosphatase 112 U/L (46-116) Total Creatine Kinase 305 U/L (26-308) Total Protein 7.6 G/DL (6.4-8.2) Albumin 3.9 G/DL (3.4-5.0) Globulin 3.7 g/dL Albumin/Globulin Ratio 1.1 (1.0-2.7) Lipase 329 U/L (73-393) Labs Test 05/21/19 19:57 White Blood Count 4.7 K/UL (4.8-10.8) Red Blood Count 5.10 M/UL (4.70-6.10) Hemoglobin 16.0 G/DL (14.2-18.0) Hematocrit 46.8 % (42.0-52.0) Mean Corpuscular Volume 92 FL (80-99) Mean Corpuscular Hemoglobin 31.3 PG (27.0-31.0) Mean Corpuscular Hemoglobin Concent 34.1 G/DL (32.0-36.0) Red Cell Distribution Width 12.0 % (11.6-14.8) Platelet Count 303 K/UL (150-450) Mean Platelet Volume 7.1 FL (6.5-10.1) Neutrophils (%) (Auto) 54.0 % (45.0-75.0) Lymphocytes (%) (Auto) 32.7 % (20.0-45.0) Monocytes (%) (Auto) 10.8 % (1.0-10.0) Eosinophils (%) (Auto) 1.4 % (0.0-3.0) Basophils (%) (Auto) 1.2 % (0.0-2.0) Sodium Level 143 MMOL/L (136-145) Potassium Level 4.3 MMOL/L (3.5-5.1) Chloride Level 104 MMOL/L (98-107) Carbon Dioxide Level 30 MMOL/L (21-32) Anion Gap 9 mmol/L (5-15) Blood Urea Nitrogen 9 mg/dL (7-18) Creatinine 1.3 MG/DL (0.55-1.30) Estimat Glomerular Filtration Rate 58.2 mL/min (>60) Glucose Level 108 MG/DL (74-106) Calcium Level 9.4 MG/DL (8.5-10.1) Total Bilirubin 0.2 MG/DL (0.2-1.0) Aspartate Amino Transf (AST/SGOT) 46 U/L (15-37) Alanine Aminotransferase (ALT/SGPT) 55 U/L (12-78) Alkaline Phosphatase 112 U/L (46-116) Total Protein 7.6 G/DL (6.4-8.2) Albumin 3.9 G/DL (3.4-5.0) Globulin 3.7 g/dL Albumin/Globulin Ratio 1.1 (1.0-2.7) Lipase 329 U/L (73-393) Last Vital Signs Date Time Temp Pulse Resp B/P (MAP) Pulse Ox O2 Delivery O2 Flow Rate FiO2 05/21/19 19:24 99.0 82 20 143/90 (107) 97 Room Air Status: improved Disposition: HOME, SELF-CARE Condition: Improved Scripts Dicyclomine Hcl* (DICYCLOMINE HCL*) 10 Mg Capsule 10 MG ORAL TID, #10 CAP Prov: Della Hernandez DO 05/21/19 Additional Instructions: Patient is provided with the discharge instructions notified to follow up with primary doctor in the next 2-3 days otherwise return to the er with any worsening symptoms. Please note that this report is being documented using DRAGON technology. This can lead to erroneous entry secondary to incorrect interpretation by the dictating instrument. Della Hernandez DO May 21, 2019 19:43
[2019-05-21] MEDS ORDERED: DiphenhydrAMINE 50mg/ml Inj IVP ONE (19:45)
--- NOTE | 2019-05-21 19:45 | NUR ---
ED Nurse Note: BLOOD SENT TO LAB
--- NOTE | 2019-05-21 19:46 | NUR ---
ED Nurse Note: PT REFUSED TO TAKE MORPHINE AND REGLAN, STATING HE DOES NOT WANT ANY DRUG FOR PAIN. ERMD AWARE.
[2019-05-21] MEDS: Morphine Sulfate 4mg/ml Inj (IV USE ONLY) IVP ONE ×2 (19:56→20:02)
[2019-05-21] MEDS: Metoclopramide 10mg/2ml Inj IVP ONE ×2 (19:56→20:02)
[2019-05-21 20:17] VITALS: BP 127/73
[2019-05-21 20:38] LABS: BASOPHILS % (AUTO) 1.2 % (0.0-2.0); EOSINOPHILS % (AUTO) 1.4 % (0.0-3.0); HEMATOCRIT 46.8 % (42.0-52.0); LYMPHOCYTES % (AUTO) 32.7 % (20.0-45.0); MEAN CORPUSCULAR VOLUME 92 FL (80-99); MONOCYTES % (AUTO) 10.8 % (1.0-10.0); PLATELET COUNT 303 K/UL (150-450); WHITE BLOOD COUNT 4.7 K/UL (4.8-10.8)
[2019-05-21 20:45] LABS: ANION GAP 9 mmol/L (5-15); BLOOD UREA NITROGEN 9 mg/dL (7-18); CALCIUM 9.4 MG/DL (8.5-10.1); CARBON DIOXIDE 30 MMOL/L (21-32); CHLORIDE 104 MMOL/L (98-107); CREATININE 1.3 MG/DL (0.55-1.30); POTASSIUM 4.3 MMOL/L (3.5-5.1); SODIUM 143 MMOL/L (136-145)
[2019-05-21 20:49] LABS: ALANINE AMINOTRANSFERASE 55 U/L (12-78); ALBUMIN 3.9 G/DL (3.4-5.0); ALBUMIN/GLOBULIN RATIO 1.1 (1.0-2.7); ALKALINE PHOSPHATASE 112 U/L (46-116); ASPARTATE AMINO TRANSFERASE 46 U/L (15-37); BILIRUBIN,TOTAL 0.2 MG/DL (0.2-1.0)
[2019-05-21] MEDS ORDERED: DICYCLOMINE HCL10 MG ORAL (21:24)
[2019-05-21 21:26] LABS: CREATINE KINASE 305 U/L (26-308)
[2019-05-21 22:00] VITALS: BP 127/73
[2019-05-22] MEDS ORDERED: VENTOLIN HFA18 GM INH (22:39)
[2019-05-22] MEDS ORDERED: METRONIDAZOLE500 MG ORAL (22:39)
[2019-05-22] MEDS ORDERED: ACETAMINOPHEN500 M3 ORAL (22:39)
[2019-05-22] MEDS ORDERED: JULUCA 50-25 M1 EACH PO (22:39)
[2019-05-22] MEDS ORDERED: PROSCAR5 MG ORAL (22:41)
[2019-05-22] MEDS ORDERED: ZYRTEC10 MG ORAL (22:41)
[2019-05-22] MEDS ORDERED: VYTORIN 10-101 EACH ORAL (22:41)
== END 2019-05-21 22:00 | disposition home or self-care (01) ==
LOC: EMR 19:40
DX: R10.12 Left upper quadrant pain (principal); B20 Human immunodeficiency virus [HIV] disease; M62.82 Rhabdomyolysis; J45.909 Unspecified asthma, uncomplicated; Z86.73 Personal history of transient ischemic attack (TIA), and cerebral infarction without residual deficits; Z85.828 Personal history of other malignant neoplasm of skin; Z88.0 Allergy status to penicillin; Z88.6 Allergy status to analgesic agent; Z88.8 Allergy status to other drugs, medicaments and biological substances
CPT/HCPCS: 36415; 80053; 82550; 83690; 85025; 96361; 96374; J1200; J7030; Z7502; 99284; J2765

== ENCOUNTER 2019-05-22 20:31 | Inpatient (IN) | payer MEDICAID ==
[~2019-05-22] VITALS: Ht 167.6 cm; Wt 72.6 kg
[~2019-05-22 20:31] MED LIST changes: +DICYCLOMINE HCL10 MG ORAL
[2019-05-22 20:45] VITALS: BP 144/93
--- NOTE | 2019-05-22 20:45 | NUR ---
ED Nurse Note: Pt walked into ED from home for c/o headache and feeling dizzy 30 min [employer]. Pt salso states he has had a cough and feels tingling in his arms. Pt appears anxious at this time. Pt is aaox4, breathing is normal and unlabored, no cardiac distress noted. Will continue to monitor.
[2019-05-22 21:22] LABS: BASOPHILS % (AUTO) 1.8 % (0.0-2.0); EOSINOPHILS % (AUTO) 1.4 % (0.0-3.0); HEMATOCRIT 48.8 % (42.0-52.0); HEMOGLOBIN 16.3 G/DL (14.2-18.0); LYMPHOCYTES % (AUTO) 44.9 % (20.0-45.0); MEAN CORPUSCULAR VOLUME 94 FL (80-99); MONOCYTES % (AUTO) 8.9 % (1.0-10.0); NEUTROPHILS % (AUTO) 43.1 % (45.0-75.0); PLATELET COUNT 311 K/UL (150-450); RED BLOOD COUNT 5.18 M/UL (4.70-6.10); RED CELL DISTRIBUTION WIDTH 13.3 % (11.6-14.8); WHITE BLOOD COUNT 6.3 K/UL (4.8-10.8)
[2019-05-22 21:33] LABS: ANION GAP 9 mmol/L (5-15); BLOOD UREA NITROGEN 13 mg/dL (7-18); CALCIUM 9.2 MG/DL (8.5-10.1); CARBON DIOXIDE 29 MMOL/L (21-32); CHLORIDE 103 MMOL/L (98-107); CREATININE 1.3 MG/DL (0.55-1.30); POTASSIUM 4.1 MMOL/L (3.5-5.1); SODIUM 141 MMOL/L (136-145)
[2019-05-22 21:43] LABS: ALANINE AMINOTRANSFERASE 43 U/L (12-78); ALKALINE PHOSPHATASE 121 U/L (46-116); ASPARTATE AMINO TRANSFERASE 50 U/L (15-37); BILIRUBIN,TOTAL 0.2 MG/DL (0.2-1.0)
[2019-05-22 21:52] LABS: CREATINE KINASE 242 U/L (26-140)
--- NOTE | 2019-05-22 22:00 | NUR ---
ED Nurse Note: Pt resting in bed at this time, no acute distress noted. Will continue to monitor.
--- NOTE | 2019-05-22 22:10 | Emergency Room Report ---
History of Present Illness General Chief Complaint: Headache Source: Patient Present Illness HPI Patient presents with complaints of episode of cough which led to a sensation of midsternal chest pain Patient started having tingling sensation in both of his arms and developed a headache after that Patient has had several visits to the emergency room recently with different complaints such as constipation Diarrhea question of rhabdomyolysis Patient at this time denies any dysuria frequency denies any fever denies any pleurisy Allergies: Coded Allergies: KETOROLAC (Verified Allergy, Severe, 07/18/16) PENICILLINS (Verified Allergy, Severe, Hives, 05/22/19) EFAVIRENZ (Verified Allergy, Unknown, 01/08/17) NELFINAVIR (Verified Allergy, Unknown, 01/08/17) NSAIDS (NON-STEROIDAL ANTI-INFLAMMA (Verified Allergy, Unknown, 07/18/16) COPIED FROM UNCODED SECTION Patient History Past Medical History: see triage record Reviewed Nursing Documentation: PMH: Agreed; PSxH: Agreed Nursing Documentation-PMH Hx Cardiac Problems: No - HIV +, RHABDOMOYSIS, Hx Hypertension: No Hx Pacemaker: No Hx Asthma: Yes Hx COPD: No Hx Diabetes: No Hx Cancer: Yes - Karposis sarcoma [id number] Hx Gastrointestinal Problems: Yes - Gastritis, pancreatitis, fatty liver 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, stage II Hx Neurological Problems: No Hx Cerebrovascular Accident: Yes Hx Seizures: No Review of Systems All Other Systems: negative except mentioned in HPI Physical Exam Vital Signs Date Time Temp Pulse Resp B/P (MAP) Pulse Ox O2 Delivery O2 Flow Rate FiO2 05/22/19 20:34 98.6 77 18 144/93 (110) 95 Room Air Sp02 EP Interpretation: reviewed, normal General Appearance: well appearing, no apparent distress Head: normocephalic, atraumatic Eyes: bilateral eye PERRL, bilateral eye EOMI ENT: hearing grossly normal, normal pharynx, TMs + canals normal, uvula midline Neck: full range of motion, supple, no meningismus, no bony tend Respiratory: lungs clear, normal breath sounds, no rhonchi, no respiratory distress, no retraction, no accessory muscle use Cardiovascular #1: normal peripheral pulses, regular rate, rhythm, no edema, no gallop, no JVD, no murmur Gastrointestinal: normal bowel sounds, non tender, soft, no mass, no organomegaly, non-distended, no guarding, no hernia, no pulsatile mass, no rebound Genitourinary: no CVA tenderness Musculoskeletal: normal inspection Neurologic: motor strength/tone normal, ocean fishing guide III-XII nml as tested, oriented x3 , sensory intact, responsive Psychiatric: mood/affect normal Skin: no rash Lymphatic: normal inspection, no adenopathy Medical Decision Making Diagnostic Impression: Primary Impression: ACS (acute coronary syndrome) ER Course Patient is a fairly complex patient with multiple differential to consideration including but not limited to cardiac cardiopulmonary and vascular emergencies Patient's blood work at this time is normal total CK has continued to decrease Patient's EKG is normal Patient has had several visits to the emergency room in the recent past Given the complaints today and the re-presentation patient was placed into admission for further inpatient care Please note that the patient has severe reaction to Toradol and any NSAID medication therefore aspirin was refused, Labs Test 05/22/19 20:40 White Blood Count 6.3 K/UL (4.8-10.8) Red Blood Count 5.18 M/UL (4.70-6.10) Hemoglobin 16.3 G/DL (14.2-18.0) Hematocrit 48.8 % (42.0-52.0) Mean Corpuscular Volume 94 FL (80-99) Mean Corpuscular Hemoglobin 31.4 PG (27.0-31.0) Mean Corpuscular Hemoglobin Concent 33.3 G/DL (32.0-36.0) Red Cell Distribution Width 13.3 % (11.6-14.8) Platelet Count 311 K/UL (150-450) Mean Platelet Volume 8.2 FL (6.5-10.1) Neutrophils (%) (Auto) 43.1 % (45.0-75.0) Lymphocytes (%) (Auto) 44.9 % (20.0-45.0) Monocytes (%) (Auto) 8.9 % (1.0-10.0) Eosinophils (%) (Auto) 1.4 % (0.0-3.0) Basophils (%) (Auto) 1.8 % (0.0-2.0) Sodium Level 141 MMOL/L (136-145) Potassium Level 4.1 MMOL/L (3.5-5.1) Chloride Level 103 MMOL/L (98-107) Carbon Dioxide Level 29 MMOL/L (21-32) Anion Gap 9 mmol/L (5-15) Blood Urea Nitrogen 13 mg/dL (7-18) Creatinine 1.3 MG/DL (0.55-1.30) Estimat Glomerular Filtration Rate 58.2 mL/min (>60) Glucose Level 102 MG/DL (74-106) Calcium Level 9.2 MG/DL (8.5-10.1) Total Bilirubin 0.2 MG/DL (0.2-1.0) Aspartate Amino Transf (AST/SGOT) 50 U/L (15-37) Alanine Aminotransferase (ALT/SGPT) 43 U/L (12-78) Alkaline Phosphatase 121 U/L (46-116) Total Creatine Kinase 242 U/L (26-140) Troponin I 0.000 ng/mL (0.000-0.056) Total Protein 7.9 G/DL (6.4-8.2) Albumin 4.0 G/DL (3.4-5.0) Globulin 3.9 g/dL Albumin/Globulin Ratio 1.0 (1.0-2.7) Urine Opiates Screen Negative (NEGATIVE) Urine Barbiturates Screen Negative (NEGATIVE) Phencyclidine (PCP) Screen Negative (NEGATIVE) Urine Amphetamines Screen Negative (NEGATIVE) Urine Benzodiazepines Screen Negative (NEGATIVE) Urine Cocaine Screen Negative (NEGATIVE) Urine Marijuana (THC) Screen Negative (NEGATIVE) EKG Diagnostic Results Rate: normal Rhythm: NSR ST Segments: no acute changes Rhythm Strip Diag. Results EP Interpretation: yes Rate: 60 Rhythm: NSR, no PVC's, no ectopy Last Vital Signs Date Time Temp Pulse Resp B/P (MAP) Pulse Ox O2 Delivery O2 Flow Rate FiO2 05/22/19 20:34 98.6 77 18 144/93 (110) 95 Room Air Status: improved Disposition: ADMITTED INPATIENT Condition: Serious Referrals: [facility],REFERRING (PCP) Della Hernandez DO May 22, 2019 22:10
[2019-05-22] MEDS ORDERED: VENTOLIN HFA18 GM INH (22:39)
[2019-05-22] MEDS ORDERED: ACETAMINOPHEN500 M3 ORAL (22:39)
[2019-05-22] MEDS ORDERED: METRONIDAZOLE500 MG ORAL (22:39)
[2019-05-22] MEDS ORDERED: JULUCA 50-25 M1 EACH PO (22:39)
[2019-05-22] MEDS ORDERED: VYTORIN 10-101 EACH ORAL (22:41)
[2019-05-22] MEDS ORDERED: ZYRTEC10 MG ORAL (22:41)
[2019-05-22] MEDS ORDERED: PROSCAR5 MG ORAL (22:41)
--- NOTE | 2019-05-22 22:50 | NUR ---
ED Nurse Note: Pt medications taken from pt and locked in medication box in ER med room.
--- NOTE | 2019-05-22 23:00 | NUR ---
ED Nurse Note: Report given to KYMBERLY Morales.
--- NOTE | 2019-05-22 23:05 | NUR ---
ED Nurse Note: Pt stable for transfer to tele unit at this time per ERMD. Pt is aaox4, breathing is normal and unlabored, no cardiac distress noted. Pt taken to unit via gurney, connected to residential monitor by gina and RN. Pt belongings sent with pt. IV on R arm is patent and intact.
--- NOTE | 2019-05-22 23:20 | NUR ---
NURSE NOTES: Received report from CLOTILDE Salguero RN. Patient was transferred from ER to telemetry unit via gurney without incident. Patient is awake and in no signs of distress or pain. AO x4, able to make needs known. Ambulates independently. Checked IV site patent and flushed. No erythema, bleeding or infiltration noted. Patient put on monitor, Sinus Rhythm on the monitor. Belongings list checked with transferring RN and patient. Skin assessment performed, no open wounds noted, skin is intact. Bed at lowest position, brakes on, side rails up x2. Call light within reach. Will continue to monitor.
[2019-05-22] MEDS ORDERED: HYDROmorphone 1mg/ml Carpuject IVP PRN (23:30)
[2019-05-22] MEDS ORDERED: Nitroglycerin Subl 0.4mg tab SL PRN (23:30)
[2019-05-22] MEDS ORDERED: LORazepam 1mg tab ORAL PRN (23:30)
[2019-05-23] VITALS: BP 137/86
[2019-05-23 04:00] VITALS: BP 119/76
[2019-05-23 07:48] LABS: CHOLESTEROL 207 MG/DL (< 200); HDL CHOLESTEROL 41 MG/DL (40-60); TRIGLYCERIDES 218 MG/DL (30-150)
[2019-05-23 08:00] VITALS: BP 134/88
--- NOTE | 2019-05-23 08:00 | NUR ---
HAND-OFF: Report given to KYMBERLY Prescott. Patient is awake and in stable condition.
--- NOTE | 2019-05-23 08:23 | NUR ---
Pt.A/Ox4, up & about in room, ambulating to & from bathroom, steady gait. Denies any chest pain, admits to occasional cough. C/O of pain & Soreness at left arm old IV site. warm packs already applied by night nurse. no swelling noted. slightly red, will continue to monitor.
[2019-05-23] MEDS: Heparin 5000 units/ml inj SUBQ SCH ×2 (09:00→21:00)
[2019-05-23] MEDS: Docusate 100mg cap ORAL SCH (10:06)
[2019-05-23] MEDS: Aspirin Baby 81mg ORAL SCH (10:07)
[2019-05-23] MEDS: Dicyclomine 10mg Cap ORAL SCH ×3 (10:07→17:18)
--- NOTE | 2019-05-23 10:52 | NUR ---
*-* INSURANCE *-* ALL CLINICALS AND REVIEWS HAVE BEEN FAXED TO: [employer] TAVERAS P: [phone] F: [phone] & [facility] REF# [id number] FAX ALL CLINICALS TO [phone]
[2019-05-23 12:00] VITALS: BP 115/74
--- NOTE | 2019-05-23 12:20 | NUR ---
Pt. still C/O mild soreness at old IV site(left forearm) requested for cold packs, ice bag applied. states, it feels good. Requesting for IV fluids, Dr. Abad in to see patient, no orders for IV fluids. Encourage to drink & increase P.O. fluids. tolerating well.
--- NOTE | 2019-05-23 13:00 | NUR ---
NURSE NOTES: Received patient from Anahy Prescott. Patient is awake and alert oriented X4. patient comfortably lying in bed. No complain of pain or discomfort at this time. Ambulatory with steady gait. Fall precautions in placed. patient encourage of the use of call kearney. will monitor.
[2019-05-23] MEDS ORDERED: ZETIA10 MG ORAL (13:19)
[2019-05-23] MEDS ORDERED: JULUCA ORAL SCH (14:00)
--- NOTE | 2019-05-23 14:29 | History & Physical ---
History and Physical History & Physicial HP dictated # [id number] Alo Abad MD May 23, 2019 14:29
[2019-05-23 16:00] VITALS: BP 112/73
[2019-05-23] MEDS: JULUCA ORAL SCH (16:09)
--- NOTE | 2019-05-23 19:28 | NUR ---
HAND-OFF: Report given to Julián Ortiz. Plan of care endorsed.
--- NOTE | 2019-05-23 19:30 | NUR ---
NURSE NOTES: RECEIVED PATIENT LYING IN BED, AWAKE, ALERT/ORIENTED X4, VERBALLY RESPONSIVE, VERY PLEASANT, DENIES PAIN. NO SIGNS AND SYMPTOMS OF ACUTE CARDIO RESPIRATORY DISTRESS/SHORTNESS OF BREATH, DENIES CHEST PAIN, NO PERIPHERAL EDEMA NOTED. IV INTACT, NO REDNESS/SWELLING NOTED. DENIES GI DISCOMFORT, NO N/V/D. SIDE RAILS UP X3, BED IN LOWEST POSITION FOR SAFETY, ENCOURAGED PATIENT TO UTILIZE CALL LIGHT FOR ASSISTANCE, VERBALIZED UNDERSTANDING. NAD.
--- NOTE | 2019-05-23 19:31 | Cardiology Progress Note ---
Assessment/Plan Assessment/Plan [id number] atypical chest pain cough hiv echo ekg torp treadmill stress test home if neg Objective Last 24 Hour Vital Signs Date Time Temp Pulse Resp B/P (MAP) Pulse Ox O2 Delivery O2 Flow Rate FiO2 05/23/19 17:54 61 05/23/19 16:00 99.1 68 20 112/73 (86) 96 05/23/19 13:12 65 05/23/19 12:00 97.7 66 20 115/74 (88) 96 05/23/19 09:49 Room Air 05/23/19 09:36 73 05/23/19 08:00 97.9 63 20 134/88 (103) 98 05/23/19 04:00 97.7 53 20 119/76 (90) 97 05/23/19 04:00 48 05/23/19 00:00 97.7 64 20 137/86 (103) 97 05/23/19 00:00 66 05/22/19 23:55 Room Air 05/22/19 23:54 Room Air 05/22/19 23:05 98.5 61 16 143/90 97 Room Air 05/22/19 20:45 98.6 77 18 144/93 95 Room Air 05/22/19 20:34 98.6 77 18 144/93 (110) 95 Room Air Intake and Output 05/22/19 05/23/19 19:00 07:00 Intake Total 800 ml Balance 800 ml Intake Oral 300 ml IV Total 500 ml # Voids 3 # Bowel Movements 2 Laboratory Tests Test 05/22/19 20:40 05/23/19 05:40 White Blood Count 6.3 K/UL (4.8-10.8) Red Blood Count 5.18 M/UL (4.70-6.10) Hemoglobin 16.3 G/DL (14.2-18.0) Hematocrit 48.8 % (42.0-52.0) Mean Corpuscular Volume 94 FL (80-99) Mean Corpuscular Hemoglobin 31.4 PG (27.0-31.0) H Mean Corpuscular Hemoglobin Concent 33.3 G/DL (32.0-36.0) Red Cell Distribution Width 13.3 % (11.6-14.8) Platelet Count 311 K/UL (150-450) Mean Platelet Volume 8.2 FL (6.5-10.1) Neutrophils (%) (Auto) 43.1 % (45.0-75.0) L Lymphocytes (%) (Auto) 44.9 % (20.0-45.0) Monocytes (%) (Auto) 8.9 % (1.0-10.0) Eosinophils (%) (Auto) 1.4 % (0.0-3.0) Basophils (%) (Auto) 1.8 % (0.0-2.0) Erythrocyte Sedimentation Rate 6 MM/HR (0-20) Sodium Level 141 MMOL/L (136-145) Potassium Level 4.1 MMOL/L (3.5-5.1) Chloride Level 103 MMOL/L (98-107) Carbon Dioxide Level 29 MMOL/L (21-32) Anion Gap 9 mmol/L (5-15) Blood Urea Nitrogen 13 mg/dL (7-18) Creatinine 1.3 MG/DL (0.55-1.30) Estimat Glomerular Filtration Rate 58.2 mL/min (>60) Glucose Level 102 MG/DL (74-106) Calcium Level 9.2 MG/DL (8.5-10.1) Total Bilirubin 0.2 MG/DL (0.2-1.0) Aspartate Amino Transf (AST/SGOT) 50 U/L (15-37) H Alanine Aminotransferase (ALT/SGPT) 43 U/L (12-78) Alkaline Phosphatase 121 U/L (46-116) H Total Creatine Kinase 242 U/L (26-140) H Troponin I 0.000 ng/mL (0.000-0.056) 0.000 ng/mL (0.000-0.056) Total Protein 7.9 G/DL (6.4-8.2) Albumin 4.0 G/DL (3.4-5.0) Globulin 3.9 g/dL Albumin/Globulin Ratio 1.0 (1.0-2.7) Urine Opiates Screen Negative (NEGATIVE) Urine Barbiturates Screen Negative (NEGATIVE) Phencyclidine (PCP) Screen Negative (NEGATIVE) Urine Amphetamines Screen Negative (NEGATIVE) Urine Benzodiazepines Screen Negative (NEGATIVE) Urine Cocaine Screen Negative (NEGATIVE) Urine Marijuana (THC) Screen Negative (NEGATIVE) Hemoglobin A1c 6.0 % (4.3-6.0) Triglycerides Level 218 MG/DL (30-150) H Cholesterol Level 207 MG/DL (< 200) H LDL Cholesterol 135 mg/dL (<100) H HDL Cholesterol 41 MG/DL (40-60) Cholesterol/HDL Ratio 5.0 (3.3-4.4) H Thyroid Stimulating Hormone (TSH) 2.929 uiU/mL (0.358-3.740) Microbiology Date/Time Source Procedure Growth Status 05/22/19 20:40 Nasal Nares - Final Complete 05/22/19 20:40 Nasal Nares - Final Complete Dharmesh Figueroa MD May 23, 2019 19:31
[2019-05-23 20:00] VITALS: BP 122/70
--- NOTE | 2019-05-23 20:01 | History and Physical Report ---
DATE OF ADMISSION: 05/22/2019 CHIEF COMPLAINT: Chest pain. HISTORY OF PRESENT ILLNESS: This is a 53-year-old male with history of HIV, who has had upper respiratory infections apparently recently. He was coughing a lot and initially had sputum. He took some clindamycin for two days, but then he had a reaction and then he started to take doxycycline recently and metronidazole. His cough has been persistent, however, he does not have any sputum. Yesterday, he has developed severe chest pressure like burning, also radiating to his left arm and he came to the emergency room and admitted for diagnosis of acute coronary syndrome. He never had any history of heart problems before. PAST MEDICAL HISTORY: As mentioned, history of HIV. No history of diabetes or COPD. History of Kaposi sarcoma of the skin. History of gastritis, pancreatitis, fatty liver, and renal failure. MEDICATIONS: Reviewed in the EMR. ALLERGIES: Reported to Ketoralac, penicillin, nelfinavir, NSAIDs, efavirenz. SOCIAL HISTORY: No history of smoking or alcohol abuse. REVIEW OF SYSTEMS: As above. PHYSICAL EXAMINATION: GENERAL: The patient is a 53-year-old male, in no acute distress. VITAL SIGNS: Blood pressure 144/93, pulse 77, temperature 98.6, and respirations 18. HEENT: Rentz conjunctivae. Anicteric sclerae. NECK: Supple. LUNGS: Clear to auscultation. HEART: S1, S2 without murmurs or rubs. ABDOMEN: Soft, nontender. EXTREMITIES: No cyanosis, edema. LABORATORY FINDINGS: CBC shows WBC of 6300, hematocrit is 48.8, hemoglobin is 16.3, and platelet is 311,000. The chemistry panel shows serum sodium 141, potassium 4.1, chloride 103, CO2 29, BUN is 18, and creatinine 1.3. LDL is 135, HDL is 41. Troponin was negative x2. Hemoglobin A1c 6. ASSESSMENT: This is a 53-year-old male with history of HIV, was admitted now with atypical chest pain. Since he has had recent respiratory infections and coughing, very likely this is a musculoskeletal pain related to coughing, however, coronary artery disease needs to be ruled out. So far the two troponins were negative. PLAN: The patient will be observed in telemetry unit. Cardiology consultation will be obtained. The patient will likely need to have an echocardiogram and possible stress test. Case will be discussed with Dr. Figueroa. I will continue his current medications. Alo Abad M.D. DR: SUZETTE JOB#: [id number] CC:
--- NOTE | 2019-05-23 23:15 | Consultation ---
DATE OF CONSULTATION: 05/23/2019 CARDIAC CONSULTATION CONSULTING PHYSICIAN: Dharmesh Figueroa M.D. REFERRING PHYSICIAN: Alo Abad M.D. REASON FOR REFERRAL: Chest pain. HISTORY OF PRESENT ILLNESS: This is a middle-aged gentleman with history of multiple medical problems. The patient indicates that yesterday he stretched, he coughed and after the cough he started feeling tingling sensation in the chest and down the arms both sides, and heaving sensation, and subsequently some pain described as a pressure, burning and then tingling in the center of his chest. Pain is intermittently present for a few seconds to approximately 10 minutes, but recurrent, has not had anymore since last night. This persisted all day yesterday. He is usually active. He really does not have this particular pain when he has activity. He has had chest pains. He has not noticed any relieving or exacerbating factors with the pain that he had since yesterday. He has had some shortness of breath. He uses two to three pillows to keep his head elevated for the cough. He has had a cough with clear sputum noted. There is no PND. There is no orthopnea and he has some palpitations intermittently. PAST MEDICAL HISTORY: Positive for history of chest pains with previous hospitalizations evaluation at [facility] and here, history of HIV, history of renal insufficiency, history of palpitation, anxiety, and atypical chest pains. ALLERGIES: He is allergic to many medications; efavirenz, Ketoralac, nelfinavir, and other NSAIDs, as well as penicillin. SOCIAL HISTORY: He smoked when he was young, not anymore. No alcohol. No drugs. REVIEW OF SYSTEMS: GASTROINTESTINAL: He has had some diarrhea. : Negative. PULMONARY: Positive for coughing. CONSTITUTIONAL: Some low-grade fevers today. NEUROLOGIC: Numbness and tingling sensation in his fingers. PHYSICAL EXAMINATION: GENERAL: Shows a middle-aged gentleman, in no respiratory distress. NECK: Supple. No jugular venous distention. LUNGS: Clear to auscultation and percussion. CARDIAC: S1 is normal. S2 is normal. Regular rate and rhythm. No heaves, thrills, gallops, or rubs are noted. ABDOMEN: Soft, nontender. Positive bowel sounds. EXTREMITIES: There is no clubbing, cyanosis, nor is there any edema. NEUROLOGICAL: He is awake, alert, and responsive, in no apparent respiratory distress. LABORATORY VALUES: Three sets of cardiac enzymes negative. Total CK of 242. Sodium 141, potassium 4.1, chloride 103, bicarb 29, BUN 13, creatinine 1.3, and a glucose of 102. Total cholesterol 207, triglycerides of 218, LDL of 135. TSH of 2.9. IMAGING: He did have a x-ray of his chest that was performed that showed no acute findings. He underwent a CT scan of his abdomen and pelvis and that showed there is a focal calcification in left lung base consistent with calcified granuloma, no consolidation or opacity seen, and the lungs bases are clear. No other significant abnormalities. Fatty liver is noted otherwise. Chest x-ray is unremarkable. ASSESSMENT AND PLAN: 1. Atypical chest pain. 2. HIV. 3. History of multiple drug allergies. Dr. Abad, this patient was seen in cardiac consultation. The pain is somewhat atypical, sounds musculoskeletal that started after a cough with some radiation and tingling sensation. Repeat EKG, we will order an echocardiogram and maybe an exercise stress test, treadmill stress test, and hopefully he can go home tomorrow. Dharmesh Figureoa M.D. DR: LU JOB#: [id number] CC:
[2019-05-24] VITALS: BP 105/74
--- NOTE | 2019-05-24 | NUR ---
NURSE NOTES: NPO PENDING STRESS TEST, PATIENT AWARE.
[2019-05-24 04:00] VITALS: BP 111/76
--- NOTE | 2019-05-24 06:19 | NUR ---
NURSE NOTES: RESTED WELL, NO SIGNIFICANT CHANGE OF CONDITION NOTED THROUGHOUT THE NIGHT. SAFETY MAINTAINED. NAD.
--- NOTE | 2019-05-24 07:36 | NUR ---
HAND-OFF: Report given to KYMBERLY ANGULO.
[2019-05-24 08:00] VITALS: BP 108/79
--- NOTE | 2019-05-24 08:00 | NUR ---
NURSE NOTES: Pt awake/alert, breathing easily on room air, denies SOB and denies pain at this time. Vital signs stable with SR @ 68 on monitor. IV access right forearm flushed with 10 ml NS and locked. Pt currently NPO for treadmill test cardio lab says light breakfast and test at 1400. Bed left in low position, side rails up x 2 and call light left near pt's hand.
[2019-05-24] MEDS: Docusate 100mg cap ORAL SCH (09:00)
[2019-05-24] MEDS: Heparin 5000 units/ml inj SUBQ SCH ×2 (09:00→21:00)
[2019-05-24] MEDS: Dicyclomine 10mg Cap ORAL SCH ×3 (09:47→17:26)
[2019-05-24] MEDS: JULUCA ORAL SCH (09:49)
[2019-05-24] MEDS: Aspirin Baby 81mg ORAL SCH (09:49)
--- NOTE | 2019-05-24 10:45 | Consultation ---
DATE OF CONSULTATION: 05/23/2019 INFECTIOUS DISEASE CONSULTATION CONSULTING PHYSICIAN: Amadou Abad M.D. PRIMARY DOCTOR: Alo Abad M.D. REASON FOR CONSULT: HIV management. HISTORY OF PRESENT ILLNESS: This is a 53-year-old male admitted last night complaining of midsternal chest pain. Had elevated blood pressure. Chest pain had sudden radiation to the arms bilaterally and started after coughing. The patient has HIV since 1997 and wants to continue his medications. PAST MEDICAL HISTORY: HIV since 1997. Getting Juluca at home. He is under the care of Dr. Ruiz and last CD4 was above 700. Has asthma, nasal allergy. Has history of Kaposi sarcoma. Has mild fatty liver, dyslipidemia. ALLERGIES: He is allergic to nonsteroidal antiinflammatories, penicillin, nelfinavir, Ketoralac, efavirenz. SOCIAL HISTORY: Single. Denies alcohol, drug abuse, or smoking. MEDICATIONS: Getting Zyrtec, dicyclomine, Colace, finasteride, heparin, aspirin, famotidine, nitroglycerin, Tylenol, hydromorphone, lorazepam. REVIEW OF SYSTEMS: Has no fever. No chills. Has cough at home that is gradually becoming better. No significant sputum production. No chest pain at the present time. No nausea. No vomiting. Has some dizziness. No problem passing urine. PHYSICAL EXAMINATION: VITAL SIGNS: Temperature 97.9, pulse 73, blood pressure 134/88. GENERAL APPEARANCE: No acute distress. Seems to have well developed. HEAD AND NECK: Nasal mucosal hypertrophy. Has whitish tongue. HEART: Normal rate. LUNGS: Clear. ABDOMEN: Soft, nontender. EXTREMITIES: No edema. NEUROLOGIC: Awake, alert, oriented x3. LABORATORY DATA: Sodium 141, potassium 4.1, chloride 103, bicarb 29, BUN 13, creatinine 1.3, glucose 102. AST 50, ALT 43, alkaline phosphatase 121. CK was elevated 242. Triglyceride is elevated 218. total Cholesterol elevated, LDL is 135. Urine toxicology was negative. The patient declined a chest x-ray, states that he had many x-rays recently. IMPRESSION: HIV, seems to be well controlled. Has chest pain that seems atypical so far. Two troponin are negative. Has nasal allergy, asthma, fatty liver, dyslipidemia. RECOMMENDATION: Continue current HIV medication, Juluca. We will follow up clinically. At the end of my exam, I thank Dr. Alo Abad for involving me in the care of this patient. Amadou Abad M.D. DR: ROHAN JOB#: [id number] CC: CALVIN
[2019-05-24 12:00] VITALS: BP 121/75
--- NOTE | 2019-05-24 13:38 | Infectious Diseases Prog Note ---
Assessment/Plan Assessment/Plan IMPRESSION: HIV, seems to be well controlled. Atypical chest pain Nasal allergy, Asthma, Fatty liver, Dyslipidemia. RECOMMENDATION: Continue current HIV medication, Juluca. Subjective ROS Limited/Unobtainable: No Constitutional: Reports: no symptoms, other - feels better Respiratory: Reports: dry cough Cardiovascular: Denies: chest pain Gastrointestinal/Abdominal: Reports: no symptoms Genitourinary: Reports: no symptoms Allergies: Coded Allergies: KETOROLAC (Verified Allergy, Severe, 07/18/16) PENICILLINS (Verified Allergy, Severe, Hives, 05/22/19) EFAVIRENZ (Verified Allergy, Unknown, 01/08/17) NELFINAVIR (Verified Allergy, Unknown, 01/08/17) NSAIDS (NON-STEROIDAL ANTI-INFLAMMA (Verified Allergy, Unknown, 07/18/16) COPIED FROM UNCODED SECTION Objective Vital Signs Last 24 Hour Vital Signs Date Time Temp Pulse Resp B/P (MAP) Pulse Ox O2 Delivery O2 Flow Rate FiO2 05/24/19 09:00 Room Air 05/24/19 08:00 58 05/24/19 04:00 51 05/24/19 04:00 97.4 59 18 111/76 (88) 98 05/24/19 00:00 97.3 62 18 105/74 (84) 100 05/24/19 00:00 59 05/23/19 21:00 Room Air 05/23/19 20:00 61 05/23/19 20:00 97.7 75 18 122/70 (87) 97 05/23/19 17:54 61 05/23/19 16:00 99.1 68 20 112/73 (86) 96 Height (Feet): 5 Height (Inches): 6.00 Weight (Pounds): 160 General Appearance: no acute distress HEENT: mucous membranes moist Respiratory/Chest: lungs clear Cardiovascular: bradycardia Abdomen: soft, non tender Extremities: no edema Neurologic/Psychiatric: alert, oriented x 3, responsive Microbiology Date/Time Source Procedure Growth Status 05/22/19 20:40 Nasal Nares - Final Complete 05/22/19 20:40 Nasal Nares - Final Complete Current Medications Medications (Trade) Dose Ordered Sig/Mandeep Route PRN Reason Start Time Stop Time Status Last Admin Dose Admin Acetaminophen (Tylenol) 650 mg Q4H PRN ORAL Mild Pain (Pain Scale 1-3) 05/22/19 23:30 06/21/19 23:29 Aspirin (ASA) 162 mg DAILY ORAL 05/23/19 09:00 06/22/19 08:59 05/24/19 09:49 Cetirizine HCl (ZyrTEC) 10 mg DAILY ORAL 05/23/19 09:00 06/22/19 08:59 05/24/19 09:48 Dextrose (Dextrose 50%) 25 ml Q30M PRN IV Hypoglycemia 05/22/19 23:30 06/21/19 23:29 Dextrose (Dextrose 50%) 50 ml Q30M PRN IV Hypoglycemia 05/22/19 23:30 06/21/19 23:29 Dicyclomine HCl (Bentyl) 10 mg TID ORAL 05/23/19 09:00 06/22/19 08:59 05/24/19 13:14 Docusate Sodium (Colace) 100 mg DAILY ORAL 05/23/19 09:00 06/22/19 08:59 05/23/19 10:06 EZETIMIBE (Zetia) 10 mg BEDTIME ORAL 05/23/19 21:00 06/22/19 20:59 05/23/19 21:35 Famotidine (Pepcid) 40 mg DAILY ORAL 05/23/19 09:00 06/22/19 08:59 05/24/19 09:48 Finasteride (Proscar) 5 mg DAILY ORAL 05/23/19 09:00 06/22/19 08:59 05/24/19 09:47 Heparin Sodium (Porcine) (Heparin 5000 units/ml) 5,000 units EVERY 12 HOURS SUBQ 05/23/19 09:00 06/22/19 08:59 Hydromorphone HCl (Dilaudid) 1 mg EVERY 3 HOURS PRN IVP Moderate Pain (Pain Scale 4-6) 05/22/19 23:30 05/29/19 23:29 Lorazepam (Ativan) 1 mg Q4H PRN ORAL For Anxiety 05/22/19 23:30 05/29/19 23:29 Nitroglycerin (Ntg) 0.4 mg Q5M PRN SL Prn Chest Pain 05/22/19 23:30 06/21/19 23:29 Patient Own Medication (Patient's Own Med) 1 ea DAILY ORAL 05/23/19 15:00 06/22/19 13:59 05/24/19 09:49 Amadou Abad MD May 24, 2019 13:38
--- NOTE | 2019-05-24 13:51 | General Progress Note ---
Assessment/Plan Problem List: (1) HIV disease ICD Codes: B20 - Human immunodeficiency virus [HIV] disease SNOMED: 19142955 (2) ACS (acute coronary syndrome) ICD Codes: I24.9 - Acute ischemic heart disease, unspecified SNOMED: 422754023 (3) Anxiety ICD Codes: F41.9 - Anxiety disorder, unspecified SNOMED: 61192244 Assessment/Plan: await stress test will discuss with Dr Figueroa Subjective Allergies: Coded Allergies: KETOROLAC (Verified Allergy, Severe, 07/18/16) PENICILLINS (Verified Allergy, Severe, Hives, 05/22/19) EFAVIRENZ (Verified Allergy, Unknown, 01/08/17) NELFINAVIR (Verified Allergy, Unknown, 01/08/17) NSAIDS (NON-STEROIDAL ANTI-INFLAMMA (Verified Allergy, Unknown, 07/18/16) COPIED FROM UNCODED SECTION Subjective No CP Objective Last 24 Hour Vital Signs Date Time Temp Pulse Resp B/P (MAP) Pulse Ox O2 Delivery O2 Flow Rate FiO2 05/24/19 09:00 Room Air 05/24/19 08:00 58 05/24/19 04:00 51 05/24/19 04:00 97.4 59 18 111/76 (88) 98 05/24/19 00:00 97.3 62 18 105/74 (84) 100 05/24/19 00:00 59 05/23/19 21:00 Room Air 05/23/19 20:00 61 05/23/19 20:00 97.7 75 18 122/70 (87) 97 05/23/19 17:54 61 05/23/19 16:00 99.1 68 20 112/73 (86) 96 Intake and Output 05/23/19 05/24/19 19:00 07:00 Intake Total 400 ml 240 ml Balance 400 ml 240 ml Intake Oral 400 ml 240 ml # Voids 5 2 Height (Feet): 5 Height (Inches): 6.00 Weight (Pounds): 160 Cardiovascular: normal rate Respiratory/Chest: lungs clear Edema: no edema noted Generalized Alo Abad MD May 24, 2019 13:51
--- NOTE | 2019-05-24 14:28 | NUR ---
*-* INSURANCE *-* ALL CLINICALS AND REVIEWS HAVE BEEN FAXED TO: [employer]AVERAS P: [phone] F: [phone] & [facility] REF# [id number] FAX ALL CLINICALS TO [phone]
--- NOTE | 2019-05-24 15:39 | NUR ---
CASE MANAGEMENT: INITIAL REVIEW 53 YO M PRESENTED TO ED FROM HOME CC: ALEJANDRO PMHx: ASTHMA. HIV. KAPOSI SARCOMA SI:ACS T 98.6 HR 77 RR 18 B/P 144/93 SATS 95% ON RA LABS: AST 50 ALP 121 TOTAL CK 242 IS: NS BOLUS X1 PATIENT ADMITTED TO TELE 05/22/2019 @ 2139 DCP: PATIENT TO BE DISCHARGED TO HOME ONCE MEDICALLY CLEARED. PLAN OF CARE: CARDIO EVAL CONCURRENT REVIEW FOR 05/23/2019 SI:ACUTE ISCHEMIC HEART DISEASE T 97.7 HR 75 RR 18 B/P 122/70 SATS 97% ON RA LABS; TROPONIN (-) IS:ASA PO QD PROSCAR PO QD BENTYL PO QD ANTIRETROVIRALS TELE PLAN OF CARE: TREADMILL STRESS TEST CONCURRENT REVIEW FOR 05/24/2019 SI:ACUTE ISCHEMIC HEART DISEASE T 97.4 HR 59 RR 18 B/P 111/76 SATS 98% ON RA LABS: NONE TODAY IS:ASA PO QD PROSCAR PO QD BENTYL PO QD ANTIRETROVIRALS TELE PLAN OF CARE: TREADMILL STRESS TEST >> PENDING
--- NOTE | 2019-05-24 19:10 | Cardiology Progress Note ---
Assessment/Plan Assessment/Plan 1. Atypical chest pain. 2. HIV. 3. History of multiple drug allergies. trop neg stres test neg ok to dc from my view point when ever ok form other point of view Subjective Cardiovascular: Denies: chest pain Subjective feels better Objective Last 24 Hour Vital Signs Date Time Temp Pulse Resp B/P (MAP) Pulse Ox O2 Delivery O2 Flow Rate FiO2 05/24/19 12:00 97.9 57 20 121/75 (90) 96 05/24/19 12:00 59 05/24/19 09:00 Room Air 05/24/19 08:00 58 05/24/19 08:00 97.7 56 18 108/79 (89) 96 05/24/19 04:00 51 05/24/19 04:00 97.4 59 18 111/76 (88) 98 05/24/19 00:00 97.3 62 18 105/74 (84) 100 05/24/19 00:00 59 05/23/19 21:00 Room Air 05/23/19 20:00 61 05/23/19 20:00 97.7 75 18 122/70 (87) 97 General Appearance: no apparent distress Intake and Output 05/23/19 05/24/19 19:00 07:00 Intake Total 400 ml 240 ml Balance 400 ml 240 ml Intake Oral 400 ml 240 ml # Voids 5 2 Microbiology Date/Time Source Procedure Growth Status 05/22/19 20:40 Nasal Nares - Final Complete 05/22/19 20:40 Nasal Nares - Final Complete Dharmesh Figueroa MD May 24, 2019 19:10
[2019-05-24 20:00] VITALS: BP 109/70
--- NOTE | 2019-05-24 20:00 | NUR ---
NURSE NOTES: RECEIVED PATIENT LYING IN BED, AWAKE, ALERT/ORIENTED X4, DENIES PAIN. IV INTACT, NO REDNESS/SWELLING NOTED. NO SIGNS AND SYMPTOMS OF ACUTE CARDIO RESPIRATORY DISTRESS/SHORTNESS OF BREATH, DENIES CHEST PAIN, NO EDEMA NOTED. S/P ECHO STRESS TEST. CONTINUE ON WET FINISHER. BATHROOM PRIVILEGES, NO COMPLAINTS OF GI DISCOMFORT, NO N/V/D. SIDE RAILS UP X2 FOR MOBILITY, BED IN LOWEST POSITION FOR SAFETY, ENCOURAGED PATIENT TO UTILIZE CALL LIGHT FOR ASSISTANCE, VERBALIZED UNDERSTANDING. CONTINUE WITH CURRENT PLAN OF CARE. NAD.
[2019-05-25] VITALS: BP_SYST 110; BP_SYST 97; BP_DIAS 62; BP_DIAS 69
[2019-05-25 04:00] VITALS: BP 131/66
--- NOTE | 2019-05-25 06:00 | NUR ---
NURSE NOTES: RESTED WELL, NO SIGNIFICANT CHANGE OF CONDITION NOTED THROUGHOUT THE NIGHT. SAFETY MAINTAINED. NAD.
--- NOTE | 2019-05-25 07:02 | NUR ---
HAND-OFF: Report given to KYMBERLY ANGULO.
--- NOTE | 2019-05-25 07:42 | NUR ---
NURSE NOTES: Pt awake/alert, sitting at edge of bed eating breakfast, breathing easily on room air, denies SOB and denies pain at this time. Vital signs stable with SR @ 84on monitor. IV access right forearm flushed with 10 ml NS and locked. Bed left in low position, side rails up x 2 and call light left near pt's hand.
[2019-05-25 08:25] VITALS: BP 127/83
[2019-05-25] MEDS: JULUCA ORAL SCH (08:57)
[2019-05-25] MEDS: Dicyclomine 10mg Cap ORAL SCH ×2 (08:57→13:18)
[2019-05-25] MEDS: Aspirin Baby 81mg ORAL SCH (08:58)
[2019-05-25] MEDS: Docusate 100mg cap ORAL SCH (08:59)
[2019-05-25] MEDS: Heparin 5000 units/ml inj SUBQ SCH (09:00)
--- NOTE | 2019-05-25 10:40 | Infectious Diseases Prog Note ---
Assessment/Plan Assessment/Plan IMPRESSION: HIV, seems to be well controlled. Atypical chest pain, stress test negative Nasal allergy, Asthma, Fatty liver, Dyslipidemia. RECOMMENDATION: Continue current HIV medication, Juluca. Subjective ROS Limited/Unobtainable: No Constitutional: Reports: no symptoms, other - feels better Respiratory: Reports: dry cough Cardiovascular: Reports: no symptoms Gastrointestinal/Abdominal: Reports: no symptoms Genitourinary: Reports: no symptoms Allergies: Coded Allergies: KETOROLAC (Verified Allergy, Severe, 07/18/16) PENICILLINS (Verified Allergy, Severe, Hives, 05/22/19) EFAVIRENZ (Verified Allergy, Unknown, 01/08/17) NELFINAVIR (Verified Allergy, Unknown, 01/08/17) NSAIDS (NON-STEROIDAL ANTI-INFLAMMA (Verified Allergy, Unknown, 07/18/16) COPIED FROM UNCODED SECTION Objective Vital Signs Last 24 Hour Vital Signs Date Time Temp Pulse Resp B/P (MAP) Pulse Ox O2 Delivery O2 Flow Rate FiO2 05/25/19 08:25 97.9 70 18 127/83 (98) 95 05/25/19 08:08 Room Air 05/25/19 04:00 52 05/25/19 04:00 98.6 86 18 131/66 (87) 98 05/25/19 00:00 98.6 80 18 110/69 (83) 97 05/25/19 00:00 60 05/24/19 21:00 Room Air 05/24/19 20:00 72 05/24/19 20:00 98.1 82 18 109/70 (83) 95 05/24/19 12:00 97.9 57 20 121/75 (90) 96 05/24/19 12:00 59 Height (Feet): 5 Height (Inches): 6.00 Weight (Pounds): 160 General Appearance: no acute distress HEENT: mucous membranes moist Respiratory/Chest: lungs clear Cardiovascular: normal rate Abdomen: soft, non tender Extremities: no edema Neurologic/Psychiatric: alert, oriented x 3, responsive Microbiology Date/Time Source Procedure Growth Status 05/22/19 20:40 Nasal Nares - Final Complete 05/22/19 20:40 Nasal Nares - Final Complete Current Medications Medications (Trade) Dose Ordered Sig/Mandeep Route PRN Reason Start Time Stop Time Status Last Admin Dose Admin Acetaminophen (Tylenol) 650 mg Q4H PRN ORAL Mild Pain (Pain Scale 1-3) 05/22/19 23:30 06/21/19 23:29 Aspirin (ASA) 162 mg DAILY ORAL 05/23/19 09:00 06/22/19 08:59 05/25/19 08:58 Cetirizine HCl (ZyrTEC) 10 mg DAILY ORAL 05/23/19 09:00 06/22/19 08:59 05/25/19 08:57 Dextrose (Dextrose 50%) 25 ml Q30M PRN IV Hypoglycemia 05/22/19 23:30 06/21/19 23:29 Dextrose (Dextrose 50%) 50 ml Q30M PRN IV Hypoglycemia 05/22/19 23:30 06/21/19 23:29 Dicyclomine HCl (Bentyl) 10 mg TID ORAL 05/23/19 09:00 06/22/19 08:59 05/25/19 08:57 Docusate Sodium (Colace) 100 mg DAILY ORAL 05/23/19 09:00 06/22/19 08:59 05/23/19 10:06 EZETIMIBE (Zetia) 10 mg BEDTIME ORAL 05/23/19 21:00 06/22/19 20:59 05/24/19 21:10 Famotidine (Pepcid) 40 mg DAILY ORAL 05/23/19 09:00 06/22/19 08:59 05/25/19 08:58 Finasteride (Proscar) 5 mg DAILY ORAL 05/23/19 09:00 06/22/19 08:59 05/25/19 08:57 Heparin Sodium (Porcine) (Heparin 5000 units/ml) 5,000 units EVERY 12 HOURS SUBQ 05/23/19 09:00 06/22/19 08:59 Hydromorphone HCl (Dilaudid) 1 mg EVERY 3 HOURS PRN IVP Moderate Pain (Pain Scale 4-6) 05/22/19 23:30 05/29/19 23:29 Lorazepam (Ativan) 1 mg Q4H PRN ORAL For Anxiety 05/22/19 23:30 05/29/19 23:29 Nitroglycerin (Ntg) 0.4 mg Q5M PRN SL Prn Chest Pain 05/22/19 23:30 06/21/19 23:29 Patient Own Medication (Patient's Own Med) 1 ea DAILY ORAL 05/23/19 15:00 06/22/19 13:59 05/25/19 08:57 Amadou Abad MD May 25, 2019 10:40
--- NOTE | 2019-05-25 14:15 | NUR ---
NURSE NOTES: Pt discharged to home self care. Pt IV access and monitor removed. Rx retrieved from pharmacy and give to pt. Belongings form and discharge papers signed. Aftercare explained that pt to follow up with PMD as needed. After extensive teaching, Pt sts no further question . Pt walked off floor breathing easily on room air, denies SOB and denies pain.
--- NOTE | 2019-05-27 10:09 | Discharge Summary ---
Discharge Summary Discharge Summary _ DATE OF ADMISSION: 05/22/2019 DATE OF DISCHARGE: 05/25/2019 DISCHARGED BY: Dr. Weinberg REASON FOR ADMISSION: 53 years old male with past medical history of HIV, Kaposi's sarcoma of the skin , gastritis, pancreatitis, renal failure, recently had upper respiratory infection. Patient reported significant coughing and took clindamycin for 2 days , afterwards he had a reaction and started on doxycycline and Flagyl. Cough was persistent , but nonproductive. Patient developed severe chest pressure ,burning ,radiating to the left and came to emergency room for further evaluation. Vital signs were stable. Laboratory work-up revealed no leukocytosis , stable hemoglobin , hematocrit and platelet count. Stable electrolytes. BUN 13, creatinine 1.3. Troponin was negative. EKG revealed sinus rhythm , no acute ischemic changes. AST 60 , ALT 43. Urine toxicology screen was negative. Influenza screen was negative. Patient subsequently admitted to telemetry floor for further management. CONSULTANTS: hogshead press operator Dr. Figueroa ID specialist Dr. Amadou Tse [facility] COURSE: Patient admitted to telemetry floor. Professor Of Violin followed. Echocardiogram revealed preserved ejection fraction of 65%. No evidence of left ventricular hypertrophy. No evidence of wall motion abnormality. Right ventricular systolic pressure of 11. Serial troponin were negative. EKG revealed no acute ischemic changes. Patient was ruled out for acute myocardial infarction. Lipid panel revealed elevated triglycerides 218, total cholesterol 207 , LDL 135. Zetia continued. Nitroglycerin was on board as needed. Nuclear stress test was negative. Per cardiology, chest pain was atypical. Cardiology cleared patient for discharge home. DVT and GI prophylaxis provided. TSH within normal limits. HIV appeared to be well controlled. ID specialist advised to continue with Rajanuca as outpatient. Supportive care provided. Patient clinically stabilized and was ready for discharge FINAL DIAGNOSES: Atypical chest pain HIV History of multiple drug allergy Asthma Fatty liver Dyslipidemia Nasal allergy Anxiety DISCHARGE MEDICATIONS: See Medication Reconciliation list. DISCHARGE INSTRUCTIONS: Patient was discharged home . Follow-up with a primary care provider in 1 week. I have been assigned to dictate discharge summary for this account. I was not involved in the patient's management. Alyssia Pack NP May 27, 2019 10:09
--- NOTE | 2019-05-27 11:29 | NUR ---
*-* INSURANCE *-* ALL CLINICALS AND REVIEWS HAVE BEEN FAXED TO: OCTAVIO TAVERAS P: [phone] F: [phone] & [facility] REF# [id number] FAX ALL CLINICALS TO [phone]
== END 2019-05-25 14:20 | disposition home or self-care (01) | DRG 198 ==
LOC: EMR 20:50 → 2E 21:39 → EDBEDREQ 22:11
DX: R07.89 Other chest pain (principal); I24.9 Acute ischemic heart disease, unspecified; B20 Human immunodeficiency virus [HIV] disease; R05 Cough; Z88.8 Allergy status to other drugs, medicaments and biological substances; K76.0 Fatty (change of) liver, not elsewhere classified; E78.5 Hyperlipidemia, unspecified; F41.9 Anxiety disorder, unspecified
CPT/HCPCS: 36415; 80053; 80061; 80307; 82550; 83036; 84443; 84484; 85025; 85651; 86710; 93005; 93017; 93306; 99285

== ENCOUNTER 2019-05-27 16:00 | Emergency (ER) | payer MEDICAID ==
[~2019-05-27] VITALS: Ht 167.6 cm; Wt 72.6 kg
[~2019-05-27 16:00] MED LIST changes: +ACETAMINOPHEN500 M3 ORAL; +JULUCA 50-25 M1 EACH PO; +METRONIDAZOLE500 MG ORAL; +PROSCAR5 MG ORAL; +VENTOLIN HFA18 GM INH; +VYTORIN 10-101 EACH ORAL; +ZETIA10 MG ORAL
--- NOTE | 2019-05-27 16:25 | NUR ---
ED Nurse Note: Pt walked into ED w/ c/o dizziness, ALEJANDRO, palpitations, x1 week. Pt states he feels like he can't see clearly for a week on intermittently. Pt denies nausea, vomiting. Pt is alert and orientedx4, ambulatory. Pt is set up on monitor.
[2019-05-27 16:30] VITALS: BP 133/94
--- NOTE | 2019-05-27 16:57 | Emergency Room Report ---
History of Present Illness General Chief Complaint: General Complaint Source: Patient Present Illness HPI Patient is a 53-year-old male presents after increased dizziness for several days. Patient reports that increased left ear fullness. Reports having no ringing in his ears. Reports having vertigo-like sensation worse with head movements. Denies any fever.Reports having prior history of micro-strokes as well as HIV for which he is currently on medications. Reports having no tinnitus. Allergies: Coded Allergies: KETOROLAC (Verified Allergy, Severe, 07/18/16) PENICILLINS (Verified Allergy, Severe, Hives, 05/22/19) EFAVIRENZ (Verified Allergy, Unknown, 01/08/17) NELFINAVIR (Verified Allergy, Unknown, 01/08/17) NSAIDS (NON-STEROIDAL ANTI-INFLAMMA (Verified Allergy, Unknown, 07/18/16) COPIED FROM UNCODED SECTION Patient History Past Medical History: see triage record Reviewed Nursing Documentation: PMH: Agreed; PSxH: Agreed Nursing Documentation-PMH Past Medical History: No History, Except For Hx Hypertension: No Hx Pacemaker: No Hx Asthma: Yes Hx COPD: No Hx Diabetes: No Hx Cancer: No Hx Gastrointestinal Problems: Yes - Gastritis, pancreatitis, fatty liver 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, stage II Hx Neurological Problems: No Hx Cerebrovascular Accident: Yes Hx Peripheral Neuropathy: Yes - Fibromyalgia Hx Dizziness: Yes Hx Headaches: Yes Review of Systems All Other Systems: negative except mentioned in HPI Physical Exam Vital Signs Date Time Temp Pulse Resp B/P (MAP) Pulse Ox O2 Delivery O2 Flow Rate FiO2 05/27/19 16:06 98.6 82 16 140/97 (111) 93 Room Air Sp02 EP Interpretation: reviewed, normal General Appearance: normal inspection, well appearing, no apparent distress, alert, GCS 15 Head: atraumatic ENT: normal ENT inspection, hearing grossly normal, normal voice Neck: normal inspection, full range of motion, supple, no bony tend Respiratory: normal inspection, lungs clear, normal breath sounds, no respiratory distress, no retraction, no wheezing Cardiovascular #1: regular rate, rhythm, no edema Gastrointestinal: normal inspection, normal bowel sounds, non tender, soft, no guarding, no hernia Genitourinary: no CVA tenderness Musculoskeletal: normal inspection, back normal, normal range of motion Neurologic: alert, motor strength/tone normal, cargo bracer III-XII nml as tested, oriented x3, responsive, speech normal, normal inspection Psychiatric: normal inspection, judgement/insight normal, mood/affect normal Skin: no rash Medical Decision Making Diagnostic Impression: Primary Impression: HIV disease Additional Impression: Labyrinthitis ER Course Patient presented for dizziness.Differential diagnosis include was not limited to benign positional vertigo, labyrinth-itis, vestibular neuronitis, posterior circulation stroke among others. Because of complexity of patient's case laboratory tests and imaging studies were ordered. Patient's laboratory testing showed some evidence of mild dehydration. MRI was ordered of the brain which showed some chronic ischemic white matter changes and maxillary sinusitis. Patient states sinusitis is chronic and is been present for many years. Does not appear to require antibiotics at this time. Patient was advised to follow-up with his primary care physician for further work-up. He was advised to return if worse. He was given prescription for meclizine. Labs Test 05/27/19 16:20 White Blood Count 6.8 K/UL (4.8-10.8) Red Blood Count 5.61 M/UL (4.70-6.10) Hemoglobin 17.4 G/DL (14.2-18.0) Hematocrit 53.3 % (42.0-52.0) Mean Corpuscular Volume 95 FL (80-99) Mean Corpuscular Hemoglobin 31.0 PG (27.0-31.0) Mean Corpuscular Hemoglobin Concent 32.6 G/DL (32.0-36.0) Red Cell Distribution Width 13.2 % (11.6-14.8) Platelet Count 257 K/UL (150-450) Mean Platelet Volume 8.5 FL (6.5-10.1) Neutrophils (%) (Auto) 44.5 % (45.0-75.0) Lymphocytes (%) (Auto) 44.3 % (20.0-45.0) Monocytes (%) (Auto) 8.7 % (1.0-10.0) Eosinophils (%) (Auto) 1.2 % (0.0-3.0) Basophils (%) (Auto) 1.2 % (0.0-2.0) Prothrombin Time 10.8 SEC (9.30-11.50) Prothromb Time International Ratio 1.0 (0.9-1.1) Activated Partial Thromboplast Time 28 SEC (23-33) Sodium Level 141 MMOL/L (136-145) Potassium Level 4.5 MMOL/L (3.5-5.1) Chloride Level 104 MMOL/L (98-107) Carbon Dioxide Level 24 MMOL/L (21-32) Anion Gap 14 mmol/L (5-15) Blood Urea Nitrogen 13 mg/dL (7-18) Creatinine 1.2 MG/DL (0.55-1.30) Estimat Glomerular Filtration Rate > 60 mL/min (>60) Glucose Level 89 MG/DL (74-106) Calcium Level 9.4 MG/DL (8.5-10.1) Total Bilirubin 0.3 MG/DL (0.2-1.0) Aspartate Amino Transf (AST/SGOT) 46 U/L (15-37) Alanine Aminotransferase (ALT/SGPT) 56 U/L (12-78) Alkaline Phosphatase 133 U/L (46-116) Troponin I 0.000 ng/mL (0.000-0.056) Total Protein 8.3 G/DL (6.4-8.2) Albumin 4.3 G/DL (3.4-5.0) Globulin 4.0 g/dL Albumin/Globulin Ratio 1.1 (1.0-2.7) Thyroid Stimulating Hormone (TSH) 1.869 uiU/mL (0.358-3.740) Last Vital Signs Date Time Temp Pulse Resp B/P (MAP) Pulse Ox O2 Delivery O2 Flow Rate FiO2 05/27/19 16:06 98.6 82 16 140/97 (111) 93 Room Air Status: improved Disposition: HOME, SELF-CARE Condition: Stable Scripts Meclizine Hcl* (MECLIZINE*) 25 Mg Tablet 25 MG ORAL THREE TIMES A DAY, #20 TAB Prov: Russell Taveras MD 05/27/19 Referrals: [facility],REFERRING (PCP) Russell Taveras MD May 27, 2019 16:57
[2019-05-27 17:05] LABS: BASOPHILS % (AUTO) 1.2 % (0.0-2.0); EOSINOPHILS % (AUTO) 1.2 % (0.0-3.0); HEMATOCRIT 53.3 % (42.0-52.0); HEMOGLOBIN 17.4 G/DL (14.2-18.0); LYMPHOCYTES % (AUTO) 44.3 % (20.0-45.0); MEAN CORPUSCULAR VOLUME 95 FL (80-99); MONOCYTES % (AUTO) 8.7 % (1.0-10.0); NEUTROPHILS % (AUTO) 44.5 % (45.0-75.0); PLATELET COUNT 257 K/UL (150-450); RED BLOOD COUNT 5.61 M/UL (4.70-6.10); RED CELL DISTRIBUTION WIDTH 13.2 % (11.6-14.8); WHITE BLOOD COUNT 6.8 K/UL (4.8-10.8)
[2019-05-27 17:09] LABS: ANION GAP 14 mmol/L (5-15); BLOOD UREA NITROGEN 13 mg/dL (7-18); CALCIUM 9.4 MG/DL (8.5-10.1); CARBON DIOXIDE 24 MMOL/L (21-32); CHLORIDE 104 MMOL/L (98-107); CREATININE 1.2 MG/DL (0.55-1.30); POTASSIUM 4.5 MMOL/L (3.5-5.1); SODIUM 141 MMOL/L (136-145)
[2019-05-27 17:22] LABS: ALANINE AMINOTRANSFERASE 56 U/L (12-78); ALBUMIN 4.3 G/DL (3.4-5.0); ALBUMIN/GLOBULIN RATIO 1.1 (1.0-2.7); ALKALINE PHOSPHATASE 133 U/L (46-116); ASPARTATE AMINO TRANSFERASE 46 U/L (15-37); BILIRUBIN,TOTAL 0.3 MG/DL (0.2-1.0)
[2019-05-27] MEDS ORDERED: Meclizine 25mg tab ORAL ONE (17:30)
--- NOTE | 2019-05-27 17:35 | NUR ---
ED Nurse Note: Pt taken to MRI.
--- NOTE | 2019-05-27 18:23 | Diagnostic Imaging Report ---
Indication: Vertigo dizziness Technique: The head was imaged in a 1.5 Ingrid magnet. Sequences obtained include sagittal and axial T1 FLAIR, axial T2 fast spin echo with fat saturation, axial T2* GRE, axial T2 FLAIR, diffusion and ADC map. Comparison: None Findings: There is mild prominence of the sulci, ventricles, and basal cisterns consistent with atrophy. Mild, nonspecific T2 hyperintensity noted within white matter. This may be due to chronic small vessel disease. There is no restricted diffusion. Montero-white differentiation is normal. There is no mass effect, midline shift, edema, or hemorrhage. There are no abnormal extra-axial or intra-axial fluid collections. The corpus callosum and sella are unremarkable. The brainstem and cerebellum are unremarkable. Bone marrow signal within the visualized osseous structures appears age appropriate and unremarkable otherwise. There is a moderate degree of mucosal thickening within the left maxillary sinus consistent with sinusitis. Impression: No acute intracranial findings. Mild atrophy and evidence of chronic small vessel disease involving white matter tracts. Left maxillary sinusitis [facility] has communicated the preliminary results to the Emergency Department. Their findings are largely concordant with this report.
[2019-05-27] MEDS ORDERED: MECLIZINE HCL25 MG ORAL (18:30)
--- NOTE | 2019-05-27 18:54 | NUR ---
ED Nurse Note: Dr Taveras notified that urine sample not obtained, MD states ok.
[2019-05-27 18:55] VITALS: BP 129/90
== END 2019-05-27 18:55 | disposition home or self-care (01) ==
LOC: EMR 16:32
DX: H83.02 Labyrinthitis, left ear (principal); Z88.0 Allergy status to penicillin; Z88.6 Allergy status to analgesic agent; M79.7 Fibromyalgia; N18.2 Chronic kidney disease, stage 2 (mild); B20 Human immunodeficiency virus [HIV] disease
CPT/HCPCS: 36415; 70551; 80053; 84443; 84484; 85025; 85610; 85730; 96360; J7030; Z7502; 99284

== ENCOUNTER 2020-01-09 13:30 | Inpatient (IN) | payer MEDICAID ==
[~2020-01-09] VITALS: Ht 167.6 cm; Wt 73.6 kg
[~2020-01-09 13:30] MED LIST changes: +MECLIZINE HCL25 MG ORAL
[2020-01-09 13:37] VITALS: BP 131/83
--- NOTE | 2020-01-09 13:37 | NUR ---
ED Nurse Note: Pt walked into Ed from home c/o left chest pain that is been going on for couple of weeks. pt also c/o lightheadedness and dizziness x3 days. Hx of HIV and kidney disease. Breathing even and unlabored. No SOB, on room air. AAOx4, verbally responsive. Pt placed on cardiac/vascular sonographer. ERMD at bedside.
--- NOTE | 2020-01-09 13:54 | Emergency Room Report ---
History of Present Illness General Chief Complaint: Chest Pain Source: Patient Present Illness HPI Patient is a 54-year-old male presents for increased chest discomfort. He reports having intermittent tightness to his chest over the past few weeks has been having increased severity and frequency of symptoms. Reports having prior history of kidney disease as well as HIV. He states he is taking Juluca. Has CD4 count of between 8 and thousand. Viral load is undetectable. Denies any fever. Prior history of asthma. Reports also having some poking sensation to his chest. Is followed by Dr. Nitin Tolentino Allergies: Coded Allergies: KETOROLAC (Verified Allergy, Severe, 07/18/16) PENICILLINS (Verified Allergy, Severe, Hives, 05/22/19) EFAVIRENZ (Verified Allergy, Unknown, 01/08/17) NELFINAVIR (Verified Allergy, Unknown, 01/08/17) NSAIDS (NON-STEROIDAL ANTI-INFLAMMA (Verified Allergy, Unknown, 07/18/16) COPIED FROM UNCODED SECTION COVID-19 Screening Contact w/high risk pt: No Experienced COVID-19 symptoms?: No COVID-19 Testing performed ANIMAL WARDEN: Yes COVID-19 Screening: Negative COVID-19 COVID-19 Testing Source: rapid Patient History Past Medical History: see triage record Reviewed Nursing Documentation: PMH: Agreed; PSxH: Agreed Nursing Documentation-PMH Past Medical History: No History, Except For Hx Hypertension: No Hx Pacemaker: No Hx Asthma: Yes Hx COPD: No Hx Diabetes: No Hx Cancer: No Hx Gastrointestinal Problems: Yes - Gastritis, pancreatitis, fatty liver 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, stage II Hx Neurological Problems: No Hx Cerebrovascular Accident: Yes Hx Peripheral Neuropathy: Yes - Fibromyalgia Hx Dizziness: Yes Hx Headaches: Yes Review of Systems All Other Systems: negative except mentioned in HPI Physical Exam Vital Signs Date Time Temp Pulse Resp B/P (MAP) Pulse Ox O2 Delivery O2 Flow Rate FiO2 01/09/20 13:33 98.6 87 18 131/83 (99) 97 Room Air Sp02 EP Interpretation: reviewed, normal General Appearance: normal inspection, well appearing, no apparent distress, alert, GCS 15 Head: atraumatic ENT: normal ENT inspection, hearing grossly normal, normal voice Neck: normal inspection, full range of motion, supple, no bony tend Respiratory: normal inspection, lungs clear, normal breath sounds, no respiratory distress, no retraction, no wheezing Cardiovascular #1: regular rate, rhythm, no edema Gastrointestinal: normal inspection, normal bowel sounds, non tender, soft, no guarding, no hernia Genitourinary: no CVA tenderness Musculoskeletal: normal inspection, back normal, normal range of motion Neurologic: alert, motor strength/tone normal, manager ethics III-XII nml as tested, o riented x3, responsive, speech normal, normal inspection Psychiatric: normal inspection, judgement/insight normal, mood/affect normal Medical Decision Making Diagnostic Impression: Primary Impression: HIV disease Additional Impression: Chest pain ER Course Patient presented for chest pain. Differential diagnosis include was not limited to asthma exacerbation, myocarditis, pneumonia, unstable angina among others. Because of complexity of patient's case laboratory tests and imaging studies were ordered. Patient's EKG showed normal sinus rhythm with a rate of [address] or T wave changes. Patient was noted to be normotensive. He does have some cardiac risk factors which include HIV and possibly high cholesterol. Patient's chest pain appears to be somewhat atypical however given patient's cardiac risk I feel that admission is warranted for rule out of [place].Patient was endorsed to pending laboratory testing and insurance authorization for possible admission. EKG Diagnostic Results Rate: normal Rhythm: NSR ST Segments: no acute changes Last Vital Signs Date Time Temp Pulse Resp B/P (MAP) Pulse Ox O2 Delivery O2 Flow Rate FiO2 01/09/20 13:37 98.6 87 18 131/83 97 Room Air Status: improved Disposition: ADMITTED INPATIENT Condition: Stable Russell Taveras MD Jan 09, 2020 13:54
--- NOTE | 2020-01-09 13:54 | NUR ---
ED Nurse Note: IV line established. Blood and urine sent to lab.
[2020-01-09] MEDS ORDERED: Aspirin Baby 81mg ORAL ONE (14:00)
--- NOTE | 2020-01-09 14:15 | NUR ---
ED Nurse Note: Xray at bedside.
--- NOTE | 2020-01-09 14:20 | Emergency Room Report ---
Physical Exam Vital Signs Date Time Temp Pulse Resp B/P (MAP) Pulse Ox O2 Delivery O2 Flow Rate FiO2 01/09/20 13:33 98.6 87 18 131/83 (99) 97 Room Air Sp02 EP Interpretation: reviewed, normal Medical Decision Making Diagnostic Impression: Primary Impression: HIV disease Additional Impressions: Chest pain BEV (acute kidney injury) Pre-syncope ER Course I, Dr Heena Iqbal, have assumed care of the patient. Initial workup, history, and physical performed by previous provider has been reviewed by myself and I have performed my own physical exam of the patient. Differential diagnosis includes acute myocardial infarction, acute coronary syndrome and unstable angina, pulmonary embolism, pneumothorax, pneumonia, and aortic dissection, among others. Patient is currently well appearing with stable vitals. EKG shows normal sinus rhythm. No evidence of STEMI, and initial troponin is negative. Chest xray shows no evidence of pneumothorax, pneumonia, or significant pleural effusion. Labs show mild BEV. Creatinine is 1.5 today, up from baseline. Aspirin given. However, given that chest pain is currently resolved, risks likely outweigh benefits of IV heparin at this time, so deferred. The pain is not classic for pericarditis or myocarditis, and the patient has no significant risk factors for a pericardial effusion and has stable vitals signs, unlikely to have tamponade. Pain is not likely to be pulmonary embolism, patient has no significant PE risk factors. The presentation is not consistent with dissection, pain is not severe, radiating to back, or tearing in nature. Has normal bilateral radial and pedal pulses. However given patients presentation and risk factors, patient will be admitted for serial troponins and risk stratification and evaluation for likely stress testing. This patient appears to be a suitable candidate for transfer to telemetry floor at this time with orders from the admitting physician who is aware of the patient's evaluation, ancillary test findings, and current condition, and agrees with treatment and disposition. I spoke with Dr. Henry and reviewed the patients presentation, workup, results, and treatment. They will admit the patient for further care and evaluation, and assume care of the patient at this time. EKG Diagnostic Results EKG Time: 13:42 EP Interpretation: 75 Rhythm: NSR ST Segments: no acute changes ASA given to the pt in ED: Yes PA Scribe Text 12-lead EKG (interpreted by me) Time: 1342 Indication: Rhythm analysis Tracing visualized and Interpreted by me. Rhythm: Normal sinus rhythm Rate: 75 bpm QTc: 419 Morphology: No_significant_ST_elevations_or_depressions, No STEMI Impression: Normal_sinus_rhythm_without_significant_abnormality Chest X-Ray Diagnostic Results Chest X-Ray Diagnostic Results : CHITRA Hein Text Chest X-Ray: Views: 1 view(s) Indication: Chest pain Findings: Normal heart size. Mediastinum normal. No infiltrate. Impression: NAD The X-ray(s) were independently viewed and interpreted contemporaneously Electronically signed by Heena meyer DO Reevaluation Time: 15:03 Last Vital Signs Date Time Temp Pulse Resp B/P (MAP) Pulse Ox O2 Delivery O2 Flow Rate FiO2 01/09/20 13:37 98.6 87 18 131/83 97 Room Air Status: improved Disposition: ADMITTED INPATIENT Admit Decision Time: 15:03 Condition: Stable Referrals: NON PHYSICIAN (PCP) Heena Iqbal D.O. Jan 09, 2020 14:20
[2020-01-09 14:36] LABS: HEMATOCRIT 43.6 % (42.0-52.0); HEMOGLOBIN 16.2 G/DL (14.2-18.0); MEAN CORPUSCULAR VOLUME 86 FL (80-99); PLATELET COUNT 234 K/UL (150-450); RED BLOOD COUNT 5.04 M/UL (4.70-6.10); RED CELL DISTRIBUTION WIDTH 11.1 % (11.6-14.8); WHITE BLOOD COUNT 5.6 K/UL (4.8-10.8)
[2020-01-09 14:53] LABS: CALCIUM 8.7 MG/DL (8.5-10.1); CREATININE 1.5 MG/DL (0.55-1.30)
[2020-01-09 15:00] VITALS: BP 115/68
[2020-01-09 15:07] LABS: ALBUMIN 4.1 G/DL (3.4-5.0); ALBUMIN/GLOBULIN RATIO 1.2 (1.0-2.7); BILIRUBIN,TOTAL 0.6 MG/DL (0.2-1.0)
[2020-01-09] MEDS ORDERED: Morphine Sulfate 2mg/ml Inj(IV/IM USE ONLY) IVP PRN (16:30)
--- NOTE | 2020-01-09 16:51 | Diagnostic Imaging Report ---
Indication: Shortness of breath Technique: One view of the chest Comparison: none Findings: Lungs and pleural spaces are clear. Heart size is normal. No significant change Impression: No acute process
[2020-01-09 17:25] VITALS: BP 121/77
--- NOTE | 2020-01-09 18:25 | NUR ---
TRANSFER TO FLOOR: Patient transferred to Tele. Bedside report given to Mary TRAYLOR. Pt AAOX4, verbally responsive. No SOB, on room air. IV line on right AC 20g patent and intact. Ambulatory. No skin issues. Med recon done. All belongings sent with the patient.
--- NOTE | 2020-01-09 18:30 | NUR ---
NURSE NOTES: Received report from KYMBERLY Mohan. Pt is AOx4, stable on RA. Pt has no s/s or complaint of distress at this time. Pt report feeing "fine". Pt walked from [facility] to hospital bed. Pt has yellow gown on, tele monitor on and nonskid socks. Pt IV on RFA 20g SL asymptomatic and intact. Pt vitals are stable at this time; 134/87, 60 HR, 96% SpO2 on RA and 22 RR unlabored and even breathing. Pt bed low and locked, call light in reach and bed alarm on. Pt verbalized understanding to call for help. Med Hx done at this time.
--- NOTE | 2020-01-09 19:19 | NUR ---
NURSE HAND-OFF REPORT: Important Events on Shift: Admission Patient Status: fc, stable Diet: regular diet Pending Orders: Pending Results/Labs: Pending MD notification: Latest Vital Signs: Temperature 98.6 , Pulse 65 , B/P 124 /71 , Respiratory Rate 19 , O2 SAT 98 , Room Air, O2 Flow Rate . Vital Sign Comment: EKG Rhythm: Sinus Rhythm Rhythm change?: MD Notified?: - MD Response: Latest Strat[place] Fall Score: 0 Fall Risk: Low Risk Safety Measures: Call light Within Reach, Bed Alarm Zone 2, Side Rails Side Rails x2, Bed position Low and Locked. Fall Precautions: Yellow Socks Yellow Gown Door Sign Patient Fall Education Report given to Ger TRAYLOR.
--- NOTE | 2020-01-09 19:21 | NUR ---
NURSE NOTES: Pt refused flu shot, risks and benefits explained. pt said he will get it at his PCP.
--- NOTE | 2020-01-09 19:31 | Cardiology Progress Note ---
Assessment/Plan Assessment/Plan [id number] atypci chest pains several different types over 3-4 days yet trop neg ekg neg repeat labs and ekg in am echo in am if all neg will not pursuit as treadmill stress test neg a few mon ago with atypical chest pain Objective Last 24 Hour Vital Signs Date Time Temp Pulse Resp B/P (MAP) Pulse Ox O2 Delivery O2 Flow Rate FiO2 01/09/20 18:25 98.6 65 19 124/71 98 Room Air 01/09/20 17:25 98.6 62 20 121/77 97 Room Air 01/09/20 15:00 98.6 65 19 115/68 100 Room Air 01/09/20 13:37 98.6 87 18 131/83 97 Room Air 01/09/20 13:37 87 18 Room Air 01/09/20 13:33 98.6 87 18 131/83 (99) 97 Room Air Laboratory Tests Test 01/09/20 13:54 White Blood Count 5.6 K/UL (4.8-10.8) Red Blood Count 5.04 M/UL (4.70-6.10) Hemoglobin 16.2 G/DL (14.2-18.0) Hematocrit 43.6 % (42.0-52.0) Mean Corpuscular Volume 86 FL (80-99) Mean Corpuscular Hemoglobin 32.1 PG (27.0-31.0) H Mean Corpuscular Hemoglobin Concent 37.2 G/DL (32.0-36.0) H Red Cell Distribution Width 11.1 % (11.6-14.8) L Platelet Count 234 K/UL (150-450) Mean Platelet Volume 7.6 FL (6.5-10.1) Neutrophils (%) (Auto) % (45.0-75.0) Lymphocytes (%) (Auto) % (20.0-45.0) Monocytes (%) (Auto) % (1.0-10.0) Eosinophils (%) (Auto) % (0.0-3.0) Basophils (%) (Auto) % (0.0-2.0) Differential Total Cells Counted 100 Neutrophils % (Manual) 47 % (45-75) Lymphocytes % (Manual) 45 % (20-45) Monocytes % (Manual) 4 % (1-10) Eosinophils % (Manual) 0 % (0-3) Basophils % (Manual) 0 % (0-2) Band Neutrophils 4 % (0-8) Reactive Lymphocytes 1+ Platelet Estimate Adequate Platelet Morphology Normal Red Blood Cell Morphology Normal Sodium Level 140 MMOL/L (136-145) Potassium Level 4.0 MMOL/L (3.5-5.1) Chloride Level 102 MMOL/L (98-107) Carbon Dioxide Level 31 MMOL/L (21-32) Anion Gap 7 mmol/L (5-15) Blood Urea Nitrogen 17 mg/dL (7-18) Creatinine 1.5 MG/DL (0.55-1.30) H Estimat Glomerular Filtration Rate 49.1 mL/min (>60) Glucose Level 80 MG/DL (74-106) Calcium Level 8.7 MG/DL (8.5-10.1) Total Bilirubin 0.6 MG/DL (0.2-1.0) Aspartate Amino Transf (AST/SGOT) 29 U/L (15-37) Alanine Aminotransferase (ALT/SGPT) 34 U/L (12-78) Alkaline Phosphatase 106 U/L (46-116) Troponin I 0.000 ng/mL (0.000-0.056) Pro-B-Type Natriuretic Peptide 16 pg/mL (0-125) Total Protein 7.6 G/DL (6.4-8.2) Albumin 4.1 G/DL (3.4-5.0) Globulin 3.5 g/dL Albumin/Globulin Ratio 1.2 (1.0-2.7) Microbiology Date/Time Source Procedure Growth Status 01/09/20 14:11 Nasopharynx SARS-CoV-2 RdRp Gene Assay - Final Complete Dharmesh Figueroa MD Jan 09, 2020 19:31
[2020-01-09 20:00] VITALS: BP 124/74
[2020-01-09] MEDS: Heparin 5000 units/ml inj SUBQ SCH (20:30)
--- NOTE | 2020-01-09 22:15 | Consultation ---
DATE OF CONSULTATION: 01/09/2020 CARDIOLOGY CONSULTATION. CONSULTING PHYSICIAN: Dharmesh Figueroa M.D. REFERRING PHYSICIAN: Alo Abad M.D. REASON FOR REFERRAL: Chest pain. HISTORY OF PRESENT ILLNESS: This is a 54-year-old who presented to the hospital because of chest pain. The patient has been in the hospital here at [facility] apparently before. He had earlier visit to the hospital this year and had a stress test, was discharged home, and returns with 3 or 4 days of different types of pain, sometimes pinprick sensation, sometimes pressure sensation, some last few seconds and some last 5 minutes and really no relieving or exacerbating factors identified by the patient. No change with breathing or walking or talking. He is able to walk around. He does not have any chest pain or shortness of with walking and does not have palpitation. He does have some dizziness when he bends over and stands up and he uses two pillows and that is what he has always used. PAST MEDICAL HISTORY: Positive for history of HIV. He has had a series of chest pains on prior evaluation. No diabetes. No high blood pressure. He said he had high cholesterol. No history of heart attack or cancer or stroke. He was told that he may have some AV malformation, and no hepatitis or tuberculosis. He does have a history of asthma. No ulcers. He does have some kidney dysfunction. He has fatty liver. No thyroid problems. No anemia. No prostate problems and no blood clots, and as mentioned, he does have a history of HIV, history of atypical chest pain. ALLERGIES: To efavirenz, Ketoralac, nelfinavir, and other non-steroidals as well as penicillin. SOCIAL HISTORY: He denies any smoking at the present time, although previously he told us that he has smoked as a young man, but he does not smoke anymore. No alcohol. No drugs. REVIEW OF SYSTEMS: GASTROINTESTINAL: He has had some nausea and some vomiting. He mentioned that he had a small-bowel bacterial overgrowth and he has been followed by a GI doctor, in fact he had a capsule endoscopy 2 days ago and for that he had some medication to clean about from that. He has continued to have diarrhea. : Negative. PULMONARY: Negative. CONSTITUTIONAL: Negative. NEUROLOGICAL: He has numbness and tingling sensation in the arms in different positions and feeling off balance at times. PHYSICAL EXAMINATION: GENERAL: Shows to be a young man, in no apparent respiratory distress. NECK: Supple. No jugular venous distention. LUNGS: Clear to auscultation and percussion. CARDIAC: Showed regular rate and rhythm. No heaves or thrills. CHEST WALL: Nontender. ABDOMEN: Soft, nontender. Positive bowel sounds. EXTREMITIES: There is no clubbing, cyanosis, or edema. NEUROLOGICAL: He is awake, alert, and responsive. LABORATORY AND DIAGNOSTIC DATA: White count of 5.6, hemoglobin 16, and platelet count 234. Sodium is 140, potassium 4.0, chloride 102, bicarb 31, BUN of 17, creatinine 1.5, and a glucose of 80. Troponin is 0.00. ProBNP is only 16. Albumin of 4.1. There are no other labs. Imaging, chest x-ray was performed in the emergency room that showed no acute processes, and EKG that was performed. EKG shows normal sinus rhythm, no ST or T-wave abnormalities. ASSESSMENT AND PLAN: 1. Atypical chest pain, multiple different times. 2. HIV. 3. History of fatty liver. 4. 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 5. History of renal insufficiency. 6. History of asthma per patient. 7. Paresthesias. Dr. Abad, this patient was seen in cardiac consultation. The patient has had evaluations previously here and that was negative. His first set of cardiac enzymes was negative despite the fact that he was having symptoms for 3 or 4 days. His EKG is unremarkable. He will have a troponin repeated tonight and tomorrow morning and he will have an echocardiogram performed tomorrow morning. If his cardiac enzymes and EKG are negative and his echocardiogram shows no wall motion abnormalities, I do not favor any further workup to be done as inpatient. He may follow up with his primary care physician. The patient's description of pain is really nondescript. No changes to be suggestive of other etiologies of the pain and he has had several types of pains over the past few days and previously as well. Dharmesh Figueroa M.D. DR: HUGO JOB#: [id number] CC:
[2020-01-10] VITALS: BP 103/57
[2020-01-10 04:00] VITALS: BP 124/74
[2020-01-10 06:48] LABS: CHOLESTEROL 198 MG/DL (< 200); HDL CHOLESTEROL 34 MG/DL (40-60); TRIGLYCERIDES 126 MG/DL (30-150)
--- NOTE | 2020-01-10 07:50 | NUR ---
NURSE HAND-OFF REPORT: Important Events on Shift:Pt admitted to tele Patient Status: Stable Diet: Regular Pending Orders: Echocardiogram Pending Results/Labs:AM Labs Pending MD notification: Latest Vital Signs: Temperature 97.9 , Pulse 49 , B/P 124 /74 , Respiratory Rate 18 , O2 SAT 98 , Room Air, O2 Flow Rate . Vital Sign Comment: VSS EKG Rhythm: Sinus Bradycardia Rhythm change?: N MD Notified?: N - MD Response: Latest Stratton Fall Score: 0 Fall Risk: Low Risk Safety Measures: Call light Within Reach, Bed Alarm Zone 1, Side Rails Side Rails x2, Bed position Low and Locked. Fall Precautions: Yellow Socks Yellow Gown Patient Fall Education Report given to KYMBERLY Hamilton.
[2020-01-10 08:00] VITALS: BP 106/65
--- NOTE | 2020-01-10 08:01 | NUR ---
NURSE NOTES: Pt awake/alert in bed, breathing easily on room air, denies SOB and denies pain at this time. Vital signs stable with SR @67 on monitor. IV access right a/c, flushed with 10 ml NS and locked. vehicle operator technician at bedside for 2D echo. Bed left in low position, side rails up x 2 and call light left near pt's hand.
[2020-01-10] MEDS: Heparin 5000 units/ml inj SUBQ SCH (09:00)
[2020-01-10 12:00] VITALS: BP 102/71
--- NOTE | 2020-01-10 12:16 | History & Physical ---
History and Physical History & Physicial HP dictated # [id number] Alo Abad MD Jan 10, 2020 12:16
--- NOTE | 2020-01-10 12:53 | NUR ---
CASE MANAGEMENT:REVIEW 54 YR OLD MALE WALKED INTO ER CC: CHEST PAIN PMH: CKD. HIV SI: ACS. BEV 98.6 87 18 131/83 97% ON RA CR+1.5 TROPONIN(-) IS: ASA PO 1L NS BOLUS CHEST XRAY COVID SWAB : TO TELEMETRY UNIT DCP: FROM HOME PLAN: 2DECHO
--- NOTE | 2020-01-10 13:15 | History and Physical Report ---
DATE OF ADMISSION: 01/09/2020 CHIEF COMPLAINT: Chest pain. HISTORY OF PRESENT ILLNESS: This is a 54-year-old male who came to the emergency room with chest pain, which is stabbing. The patient states that when he sleeps usually it happens. No history of dyspnea on exertion. The patient apparently had a negative cardiac stress test before this year. 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 The patient also has history of chronic kidney disease. ALLERGIES: The patient states he is allergic to NSAIDs, but there is really no allergy per se. He was told not to take insulin because of his kidney disease. SOCIAL HISTORY: No history of smoking or alcohol abuse. The patient lives with his mother. REVIEW OF SYSTEMS: Noncontributory. PHYSICAL EXAMINATION: GENERAL: The patient is a 54-year-old male, in no acute distress. VITAL SIGNS: Blood pressure is 106/65, pulse 67, temperature 97.5, respirations 20. HEENT: Magna conjunctivae. Anicteric sclerae. NECK: Supple. LUNGS: Clear to auscultation. HEART: S1, S2 without murmurs or rubs. ABDOMEN: Soft, nontender. EXTREMITIES: No cyanosis or edema. LABORATORY FINDINGS: CBC shows a WBC of 5600, hematocrit is 43.6, hemoglobin 16.2, platelets 234,000. Chemistry panel shows serum sodium 140, potassium 4.0, chloride 102, BUN 17, creatinine 1.5. Triglycerides 127. ALT is 147. TSH is 2.1. Troponins were all negative x3. ASSESSMENT: This is a 54-year-old male who was admitted with atypical chest pain, history of HIV, and history of chronic kidney disease. PLAN: The patient had an echocardiogram today. The results will be checked. He was seen by Dr. Dharmesh Figueroa in cardiology consultation. His impression was that if there was no wall motion abnormality on the EKG, the patient can be safely discharged home. Alo Abad M.D. DR: JORGE JOB#: [id number] CC:
[2020-01-10] MEDS ORDERED: AZELASTINE HCL6 ML BOTH EYES (15:33)
[2020-01-10] MEDS ORDERED: LORATADINE10 M2 PO (15:33)
[2020-01-10] MEDS ORDERED: PATADAY2.5 ML OP (15:33)
[2020-01-10] MEDS ORDERED: QVAR7.3 GM INH (15:33)
[2020-01-10] MEDS ORDERED: MIRALAX17 G2 ORAL (15:33)
[2020-01-10] MEDS ORDERED: FLUTICASONE PRO16 G1 NASAL (15:33)
[2020-01-10] MEDS ORDERED: CYMBALTA30 MG ORAL (15:33)
[2020-01-10] MEDS ORDERED: [UNRECOGNIZED DRUG - OTHER] OP (15:33)
[2020-01-10 16:00] VITALS: BP 126/79
--- NOTE | 2020-01-10 18:43 | Cardiology Progress Note ---
Assessment/Plan Assessment/Plan 1. Atypical chest pain, multiple different times. 2. HIV. 3. History of fatty liver. 4. 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 5. History of renal insufficiency. 6. History of asthma per patient. 7. Paresthesias. ekg sinus margie onesimo sinu margie trop neg echo normal motion no further cv testing at this time Subjective Cardiovascular: Reports: chest pain - still with occasioanl cp ; Denies: lightheadedness, palpitations Respiratory: Denies: shortness of breath Gastrointestinal/Abdominal: Denies: abdominal pain Genitourinary: Denies: burning Objective Last 24 Hour Vital Signs Date Time Temp Pulse Resp B/P (MAP) Pulse Ox O2 Delivery O2 Flow Rate FiO2 01/10/20 16:00 54 01/10/20 16:00 97.9 56 18 126/79 (95) 97 01/10/20 12:00 98.0 61 20 102/71 (81) 97 01/10/20 12:00 61 01/10/20 09:00 Room Air 01/10/20 08:00 67 01/10/20 08:00 97.5 56 20 106/65 (79) 100 01/10/20 04:00 49 01/10/20 04:00 97.9 50 18 124/74 (91) 98 01/10/20 00:00 56 01/10/20 00:00 99.0 50 20 103/57 (72) 98 01/09/20 21:00 Room Air 01/09/20 20:00 45 01/09/20 20:00 97.9 50 18 124/74 (91) 98 General Appearance: no apparent distress, alert Neck: supple Cardiovascular: normal rate Respiratory/Chest: lungs clear Abdomen: normal bowel sounds, non tender Extremities: no swelling Intake and Output 01/09/20 01/10/20 19:00 07:00 Intake Total 2000 ml 480 ml Balance 2000 ml 480 ml Intake Oral 480 ml IV Total 2000 ml # Voids 3 2 # Bowel Movements 1 Laboratory Tests Test 01/09/20 20:04 01/10/20 05:25 Troponin I 0.000 ng/mL (0.000-0.056) 0.000 ng/mL (0.000-0.056) Hemoglobin A1c 5.7 % (4.3-6.0) Triglycerides Level 126 MG/DL (30-150) Cholesterol Level 198 MG/DL (< 200) LDL Cholesterol 147 mg/dL (<100) H HDL Cholesterol 34 MG/DL (40-60) L Cholesterol/HDL Ratio 5.8 (3.3-4.4) H Thyroid Stimulating Hormone (TSH) 2.120 uiU/mL (0.358-3.740) Microbiology Date/Time Source Procedure Growth Status 01/09/20 14:11 Nasopharynx SARS-CoV-2 RdRp Gene Assay - Final Complete Dharmesh Figueroa MD Jan 10, 2020 18:43
--- NOTE | 2020-01-10 19:25 | NUR ---
NURSE NOTES: Received report from KYMBERLY Hamilton. pt in bed awake alert, oriented x4, able to make needs know. No resp distress noted. decontamination worker in place. Right AC 22g IV saline locked. Bed in low position & locked, side rails up x2. Call light with in reach. Pt for discharge later today.
[2020-01-10 20:00] VITALS: BP 133/88
--- NOTE | 2020-01-10 20:20 | NUR ---
NURSE NOTES: Left message for Dr. Henry regarding pts discharge.
--- NOTE | 2020-01-10 21:00 | NUR ---
NURSE NOTES: Pt in stable condition. Discharge instruction & paper work given to pt. IV d/c. Belongings check list done. Explained to pt to f/u with primary doctor, pt stated he has appt with primary on 01/17/20. Accompanied pt out of facility.
--- NOTE | 2020-01-12 08:57 | Cardiology Report ---
APPROVED REPORT EXAM: Two-dimensional and M-mode echocardiogram with Doppler and color Doppler. INDICATION Chest Pain M-Mode DIMENSIONS IVSd0.9 (0.7-1.1cm)Left Atrium (MM)3.3 (1.6-4.0cm) LVDd4.9 (3.5-5.6cm)Aortic Root2.7 (2.0-3.7cm) PWd0.9 (0.7-1.1cm)Aortic Cusp Exc.1.9 (1.5-2.0cm) IVSs1.7 cmEPSS0.5 (>1.0cm) LVDs3.6 (2.5-4.0cm) PWs1.3 cm <Conclusion> Normal left ventricular chamber size, systolic function and wall motion. Left ventricular ejection fraction estimated to be 60-65 %. No evidence of left ventricular hypertrophy. No evidence of pericardial effusion All other cardiac chamber sizes are within normal limits. Moderate focal aortic valve sclerosis with adequate cusp excursion. Mildly thickened mitral valve leaflets with normal excursion. Mitral annulus and aortic root calcification. Pulmonic valve not well visualized. Normal tricuspid valve structure. IVC at normal size and collapsing with respiration. A color flow and spectral Doppler study was performed and revealed: No aortic regurgitation. Trace mitral regurgitation. Mitral diastolic velocities suggest reduced left ventricular relaxation c/w mild diastolic dysfunction (Grade I). Trace tricuspid regurgitation. Tricuspid systolic velocities suggests peak right ventricular systolic pressure of 23 mmHg. No pulmonic regurgitation present.
--- NOTE | 2020-01-12 10:31 | Discharge Summary ---
Discharge Summary Discharge Summary _ DATE OF ADMISSION: 01/09/2020 DATE OF DISCHARGE: 01/10/2020 ADMITTING MD: Dr. Alo Abad CONSULTANTS: Dr. Dharmesh Figueroa [facility] HOSPITAL COURSE: Patient is a 55-year-old male who came during emergency room due to chest pain, described to be stabbing. Patient stated it happens when he sleeps usually. He denies any history of dyspnea on exertion. He has history of HIV, hyperlipidemia, Kaposi's sarcoma, which is cured. He also has chronic kidney disease. Upon evaluation at the ED, vital signs were stable. Blood work was stable. Troponin was negative. EKG showed normal sinus rhythm with a rate of [address] or T wave changes. Chest x-ray with no evidence of pneumothorax, pneumonia or significant pleural effusion. He was given aspirin. Due to his risk factors, patient was admitted for further evaluation. He was admitted to telemetry. Cardiac enzymes were monitored. He underwent cardiac evaluation. He was continued on antiplatelet therapy. Patient had a stress test earlier in the year. Patient had been admitted previously at [facility] as well as [facility]. Patient has different types of pain, sometimes pinprick sensation, sometimes pressure sensation, some lasts a few seconds and some lasts more than 5 minutes. There were no relieving or exacerbating factors. No change with breathing, walking or talking. He does not have any chest pain or shortness of breath with walking. He denies any palpitations. EKG and telemetry was in normal sinus bradycardia. EKG unremarkable. Echocardiogram showed normal motion. Patient was cleared for discharge home. Advised to follow-up with his backup sawyer. 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 DISCHARGE MEDICATIONS: None. DISCHARGE INSTRUCTIONS: Follow-up with PCP and backup sawyer in a week. I have been assigned to complete a discharge summary on this account, I was not involved with the patient's management.--ALIX Freeman Jacqueline Robles NP Jan 12, 2020 10:30
--- NOTE | 2020-01-12 16:41 | NUR ---
CASE MANAGEMENT: Faxed CM review and clinical info (face sheet /DC summary/ H&P/ ER MD notes/ progress notes) to [facility] @ [phone]. AUTH#[id number].
--- NOTE | 2020-01-12 19:34 | Cardiology Report ---
APPROVED REPORT EKG Measurement Heart [id number] <Conclusion> Sinus bradycardia Nonspecific ST abnormality Abnormal ECG
--- NOTE | 2020-01-12 19:37 | Cardiology Report ---
APPROVED REPORT EKG Measurement Heart [id number] <Conclusion> Normal sinus rhythm Normal ECG
== END 2020-01-10 21:00 | disposition home or self-care (01) | DRG 203 ==
LOC: EMR 14:16 → 2E 15:36 → EDBEDREQ 17:52
DX: R07.89 Other chest pain (principal); R20.2 Paresthesia of skin; N18.9 Chronic kidney disease, unspecified; Z88.0 Allergy status to penicillin; Z88.8 Allergy status to other drugs, medicaments and biological substances; E78.5 Hyperlipidemia, unspecified; J45.909 Unspecified asthma, uncomplicated
CPT/HCPCS: 36415; 71045; 80053; 80061; 83036; 83880; 84443; 84484; 85007; 85025; 93005; 93306; 96360; 99285; J7030; U0002

== ENCOUNTER 2020-01-16 01:39 | Emergency (ER) | payer MEDICAID ==
[~2020-01-16] VITALS: Ht 167.6 cm; Wt 68.0 kg
[~2020-01-16 01:39] MED LIST changes: +AZELASTINE HCL6 ML BOTH EYES; +CYMBALTA30 MG ORAL; +FLUTICASONE PRO16 G1 NASAL; +LORATADINE10 M2 PO; +MIRALAX17 G2 ORAL; +PATADAY2.5 ML OP; +QVAR7.3 GM INH; +[UNRECOGNIZED DRUG - OTHER] OP
[2020-01-16 02:00] VITALS: BP 114/78
--- NOTE | 2020-01-16 02:16 | Emergency Room Report ---
History of Present Illness General Chief Complaint: Chest Pain Source: Patient Present Illness HPI This is a 54-year-old male with a history of HIV. His CD4 count is normal and viral load is undetectable. He is compliant with the medication. He presents with chief complaint of chest pain. He has multiple descriptions of his pain. Sometimes prickly in tingly. Sometimes pressure-like. He also stated that his heart rate sometimes in the high 40s. He says sometimes he gets dizzy. No nausea no vomiting. No syncope. No exertional component. He was just admitted here recently with an echocardiogram that showed normal LV function. He had recent stress test at [facility] and was negative. Nothing made it better. Nothing made it worse. Is been ongoing for weeks. Allergies: Coded Allergies: KETOROLAC (Verified Allergy, Severe, 07/18/16) PENICILLINS (Verified Allergy, Severe, Hives, 05/22/19) EFAVIRENZ (Verified Allergy, Unknown, 01/08/17) NELFINAVIR (Verified Allergy, Unknown, 01/08/17) NSAIDS (NON-STEROIDAL ANTI-INFLAMMA (Verified Allergy, Unknown, 07/18/16) COPIED FROM UNCODED SECTION COVID-19 Screening Contact w/high risk pt: No Experienced COVID-19 symptoms?: No COVID-19 Testing performed BOARD FINISHER: Yes - 1 week ago COVID-19 Screening: Negative COVID-19 COVID-19 Testing Source: [facility] Patient History Past Medical History: see triage record, old chart reviewed, HIV Past Surgical History: none Pertinent Family History: none Social History: Denies: smoking Immunizations: other Reviewed Nursing Documentation: PMH: Agreed; PSxH: Agreed Nursing Documentation-PMH Hx Cardiac Problems: Yes - HIV, Rhabdomyalosis, fatty liver, stage 2 kidney disease, fibromyalgia Hx Hypertension: No Hx Pacemaker: No Hx Asthma: Yes Hx COPD: No Hx Diabetes: No Hx Cancer: No Hx Gastrointestinal Problems: Yes - costochondritis 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, stage II Hx Neurological Problems: No Hx Cerebrovascular Accident: Yes Hx Peripheral Neuropathy: Yes - Fibromyalgia Hx Dizziness: Yes Hx Headaches: Yes Review of Systems Eye: Denies: eye pain, blurred vision ENT: Denies: ear pain, nose congestion, throat swelling Respiratory: Denies: cough, shortness of breath Cardiovascular: Reports: chest pain; Denies: palpitations Gastrointestinal: Denies: abdominal pain, diarrhea, nausea, vomiting Musculoskeletal: Denies: back pain, joint pain Skin: Denies: rash Neurological: Reports: dizziness; Denies: headache, numbness Endocrine: Denies: increased thirst, increased urine Hematologic/Lymphatic: Denies: easy bruising All Other Systems: negative except mentioned in HPI Physical Exam Vital Signs Date Time Temp Pulse Resp B/P (MAP) Pulse Ox O2 Delivery O2 Flow Rate FiO2 01/16/20 01:57 98.4 59 17 114/78 (90) 95 Room Air Vitals normal Sp02 EP Interpretation: reviewed, normal General Appearance: well appearing, no apparent distress, alert Head: normocephalic, atraumatic Eyes: bilateral eye PERRL, bilateral eye EOMI ENT: hearing grossly normal, normal pharynx Neck: full range of motion, supple, no meningismus Respiratory: chest non-tender, lungs clear, normal breath sounds Cardiovascular #1: regular rate, rhythm, no murmur Gastrointestinal: normal bowel sounds, non tender, no mass, no organomegaly, no bruit, non-distended Musculoskeletal: back normal, normal range of motion, gait/station normal Psychiatric: mood/affect normal Medical Decision Making Diagnostic Impression: Primary Impression: Atypical chest pain Additional Impression: Anxiety ER Course With atypical chest pain. Most likely anxiety related. Negative. Echocardiogram with normal LV function. No evidence of syncope. Vital signs are stable. Will discharge home with reassurance. EKG Diagnostic Results Troponin ordered: Yes Rate: normal Rhythm: NSR ST Segments: no acute changes Rhythm Strip Diag. Results EP Interpretation: yes Rate: 60 Rhythm: NSR, no PVC's, no ectopy Last Vital Signs Date Time Temp Pulse Resp B/P (MAP) Pulse Ox O2 Delivery O2 Flow Rate FiO2 01/16/20 01:57 98.4 59 17 114/78 (90) 95 Room Air Status: improved Disposition: HOME, SELF-CARE Condition: Stable Patient Instructions: Nonspecific Chest Pain Additional Instructions: Follow-up with In 7 days. You may need a referral to see plumber cub. Return if symptoms worsen. Jonnie Yip MD Jan 16, 2020 02:16
[2020-01-16 03:20] VITALS: BP 120/70
== END 2020-01-16 03:25 | disposition home or self-care (01) ==
LOC: EMR 02:38
DX: R07.89 Other chest pain (principal); F41.9 Anxiety disorder, unspecified; B20 Human immunodeficiency virus [HIV] disease; J45.909 Unspecified asthma, uncomplicated; N19 Unspecified kidney failure; M79.7 Fibromyalgia; Z88.0 Allergy status to penicillin; Z88.6 Allergy status to analgesic agent; Z88.8 Allergy status to other drugs, medicaments and biological substances; Z79.899 Other long term (current) drug therapy
CPT/HCPCS: 84484; 93005; Z7502; 99283